=== PATIENT | female | born 1945 | race Caucasian/White ===

== ENCOUNTER 2019-09-27 13:14 | Outpatient (CLI) | payer MEDICARE, OTHER, SELFPAY ==
--- NOTE | ~2019-09-27 | MM_ITS ---
EXAMINATION: MM screening adams BI w kacy HISTORY: Screening mammogram TECHNIQUE: Craniocaudal and mediolateral oblique 3-D tomosynthesis images were obtained and synthetic 2-D images were generated. CAD analysis was submitted and interpreted. COMPARISON: 08/17/2018, 05/13/2017, 02/23/2014 bilateral digital screening mammogram examinations BREAST PARENCHYMAL COMPOSITION: There are scattered areas of fibroglandular density. FINDINGS: There is no evidence of suspicious mass, calcification, or architectural distortion to sugg est malignancy in either breast. There has been no suspicious interval change. IMPRESSION: 1. No mammographic evidence of malignancy. 2. Recommend routine screening mammography in one year. BI-RADS Category 1: Negative Reviewed, dictated and finalized at location A.
--- NOTE | ~2019-09-27 | DEXA_ITS ---
Bone Density Report Name: Carole Johnston Age: 74 Sex: Female Ethnicity: White Date of : 1945 Indication: postmenopausal; height loss; hysterectomy; Referring Provider: Selvin, Aby Study: Bone densitometry was performed. Exam Date: September 27, 2019 Accession number: [id number] Bone Density: Region BMD T-score Z-score Classification AP Spine (L1-L4) 0.923 -1.1 1.1 Osteopenia Femoral Neck (Left) 0.572 -2.5 -0.5 Osteoporosis Total Hip (Left) 0.650 -2.4 -0.7 Osteopenia Total Hip Bilateral Avg 0.665 -2.3 -0.6 Osteopenia Femoral Neck (Right) 0.562 -2.6 -0.6 Osteoporosis Total Hip (Right) 0.679 -2.2 -0.5 Osteopenia World Health Organization criteria for BMD impression classify patients as: Normal (T-score at or above -1.0), Osteopenia (T-score between -1.0 and -2.5), or Osteoporosis (T-score at or below -2.5). 10-year Fracture Risk: FRAX not reported because: Some T-score for Spine Total or Hip Total or Femoral Neck at or below -2.5 Clinical Information Provided by Patient: Has the following medical conditions: Hysterectomy Patient maximum height was 64.5 Menopause Age: 38 Does not regularly consume dairy products Drinks caffeinated beverages Onset of menses at age 14 Number of children 1 Impression: The patient has osteoporosis, based on the Right Femoral Neck T-score. Discussion: INCREASED RISK OF FRACTURE. BONE DENSITY IS UNDESIRABLY LOW AT ONE OR MORE SKELETAL SITES, CONSISTENT WITH POSTMENOPAUSAL OSTEOPOROSIS. This patient's lowest T-score meets the World Health Organization's (WHO) criteria for osteoporosis at one or more sites (T-score -2.5 or below). In untreated patients, the risk of osteoporotic fracture increases approximately two-fold for each 1.0 SD decrease in T-score. Low bone density is not the only risk factor for fracture; also consider factors such as patient's age, frailty or poor health, risk of falling, risk of injury, previous osteoporotic fracture, family history of osteoporosis, cigarette smoking, low body weight, etc. Not everyone with low bone mineral density has osteoporosis; osteomalacia and other metabolic bone disorders should also be considered. Patients who have osteoporosis should be evaluated for specific diseases and conditions (secondary causes) that may cause or contribute to bone loss. The [place] [employer]ocrinologists (AACE) and National Osteoporosis Foundation (NOF) recommend pharmacologic intervention for all postmenopausal women whose T-score is in this range. The patient should follow a healthful lifestyle (good nutrition with adequate calcium and vitamin D, and appropriate weight-bearing exercise). Follow-Up: Consider a repeat BMD and Vertebral Fracture Assessment (VFA) exam in 2 years or sooner if medically necessary, to reassess this patient's st
== END 2019-09-27 13:15 | disposition home or self-care (01) ==
LOC: ANHIMG 13:24
PROVIDERS: PCP Internal Medicine; Visit Provider Internal Medicine
DX: Z12.31 Encounter for screening mammogram for malignant neoplasm of breast (principal); Z78.0 Asymptomatic menopausal state; M85.88 Other specified disorders of bone density and structure, other site; M81.0 Age-related osteoporosis without current pathological fracture; M85.852 Other specified disorders of bone density and structure, left thigh; M85.851 Other specified disorders of bone density and structure, right thigh
CPT/HCPCS: 77063; 77067; 77080

== ENCOUNTER 2020-09-27 14:24 | Outpatient (CLI) | payer MEDICARE, OTHER, SELFPAY ==
--- NOTE | ~2020-09-27 | MM_ITS ---
EXAMINATION: MM screening adams BI w kacy HISTORY: Screening mammogram TECHNIQUE: Craniocaudal and mediolateral oblique 3-D tomosynthesis images were obtained and synthetic 2-D images were generated. CAD analysis was submitted and interpreted. COMPARISON: 09/23/2019, 08/17/2018, 05/13/2017 bilateral digital screening mammogram examinations BREAST PARENCHYMAL COMPOSITION: There are scattered areas of fibroglandular density. FINDINGS: There is no evidence of suspicious mass, calcification, or architectural distortion to sugg est malignancy in either breast. There has been no suspicious interval change. IMPRESSION: 1. No mammographic evidence of malignancy. 2. Recommend routine screening mammography in one year. BI-RADS Category 1: Negative Reviewed, dictated and finalized at location A.
== END 2020-09-27 14:25 | disposition home or self-care (01) ==
LOC: ANHIMG 14:28
PROVIDERS: PCP Internal Medicine; Visit Provider Internal Medicine
DX: Z12.31 Encounter for screening mammogram for malignant neoplasm of breast (principal)
CPT/HCPCS: 77063; 77067

== ENCOUNTER 2021-12-09 16:00 | Outpatient (CLI) | payer MEDICARE, OTHER, SELFPAY ==
--- NOTE | ~2021-12-09 | DEXA_ITS ---
Bone Density Report Name: TRISH PFEIFFER Age: 76 Sex: Female Ethnicity: White Date of : 1945 Indication: postmenopausal; screening for osteoporosis; height loss; Referring Provider: SHONXENIA Study: Bone densitometry was performed. Exam Date: December 09, 2021 Accession number: [id number] Bone Density: Region BMD T-score Z-score Classification AP Spine(L1-L4) 0.930 -1.1 1.3 Osteopenia Femoral Neck (Left) 0.513 -3.0 -1.0 Osteoporosis Total Hip (Left) 0.628 -2.6 -0.8 Osteoporosis Femoral Neck (Right) 0.548 -2.7 -0.6 Osteoporosis Total Hip (Right) 0.635 -2.5 -0.7 Osteoporosis Total Hip Mean 0.631 -2.6 -0.8 Osteoporosis World Health Organization criteria for BMD impression classify patients as: Normal (T-score at or above -1.0), Osteopenia (T-score between -1.0 and -2.5), or Osteoporosis (T-score at or below -2.5). 10-year Fracture Risk: FRAX not reported because: Some T-score for Spine Total or Hip Total or Femoral Neck at or below -2.5 Treated for osteoporosis Clinical Information Provided by Patient: Is being treated for osteoporosis Has used the following medications: Vitamin D, Calcium Patient maximum height was 64 Menopause Age: 38 No regular weight bearing exercise Does not regularly consume dairy products Drinks caffeinated beverages Onset of menses at age 14 Number of children 1 Impression: The patient has osteoporosis, based on the Left Femoral Neck T-score. Discussion: It is important to ask patients whether they are taking their medications and to encourage continued and appropriate compliance with their osteoporosis therapies to reduce fracture risk. It is also important to review their risk factors and encourage appropriate calcium and vitamin D intakes, exercise, fall prevention and other lifestyle measures. Follow-Up: Consider a repeat BMD and Vertebral Fracture Assessment (VFA) exam in 2 years or sooner if medically necessary, to reassess this patient's status. Reported by: ASHLEE on 12/09/2021 4:28:00 PM. Reviewed, dictated and finalized at location [facility]ep [facility]
--- NOTE | ~2021-12-09 | MM_ITS ---
EXAMINATION: MM screening adams BI w kacy HISTORY: Screening mammogram TECHNIQUE: Craniocaudal and mediolateral oblique 3-D tomosynthesis images were obtained and synthetic 2-D images were generated. CAD analysis was submitted and interpreted. COMPARISON: 09/27/2020, 09/23/2019, 08/17/2018 bilateral screening mammogram examinations BREAST PARENCHYMAL COMPOSITION: There are scattered areas of fibroglandular density. FINDINGS: There is no evidence of suspicious mass, calcification, or architectural distortion to sugg est malignancy in either breast. There has been no suspicious interval change. IMPRESSION: 1. No mammographic evidence of malignancy. 2. Recommend routine screening mammography in one year. BI-RADS Category 1: Negative Reviewed, dictated and finalized at location A.
== END 2021-12-09 16:01 | disposition home or self-care (01) ==
PROVIDERS: PCP Internal Medicine; Visit Provider Internal Medicine
DX: Z12.31 Encounter for screening mammogram for malignant neoplasm of breast (principal); Z78.0 Asymptomatic menopausal state; M85.88 Other specified disorders of bone density and structure, other site; M81.0 Age-related osteoporosis without current pathological fracture
CPT/HCPCS: 77063; 77067; 77080

== ENCOUNTER 2022-04-06 13:32 | Observation (INO) | payer MEDICARE, OTHER, SELFPAY ==
[2022-04-06] VITALS (10 sets, daily range): BP systolic 141–205; BP diastolic 46–101; PULSE 72–83; RESP 15–25; TEMP 36.8; O2SAT 62–100; BMI 21.9
--- NOTE | ~2022-04-06 | XR_ITS ---
EXAMINATION: XR chest 2V DATE: 04/06/2022 14:18 INDICATION: Cough and fever. TECHNIQUE: Frontal and lateral views of the chest were obtained. COMPARISON: None. FINDINGS: There are airspace opacities in the lower lung zones. There are mild airspace opacities in perihilar right upper lobe. No pleural effusion or pneumothorax. The heart size is normal. Surgical c lips in the right upper quadrant are likely from cholecystectomy. IMPRESSION: 1. Airspace opacities in the lower lung zones and perihilar right upper lobe, consistent with pneumon ia. Reviewed, dictated and finalized at location A. 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 Airspace opacities in the lower lung zones and perihilar right upper lobe, c onsistent with pneumonia.
--- NOTE | 2022-04-06 13:59 | ECG_ITS ---
Measurements Intervals [place] Rate: 70 P: 68 AR: 154 QRS: -5 QRSD: 89 T: 58 QT: 404 QTc: 437 Interpretive Statements SINUS RHYTHM ANTEROSEPTAL INFARCT, AGE INDETERMINATE BASELINE ARTIFACT- II, III, AVF ABNORMAL ECG NO PREVIOUS ECG AVAILABLE FOR COMPARISON Electronically Signed On 04-06-2022 15:40:07 [employer]ER by Markel Robertson D.O.
[2022-04-06 14:41] LABS: Influenza A QL RT-PCR Positive (Negative); Influenza B QL RT-PCR Negative (Negative); SARS-CoV-2 RNA PCR Negative
--- NOTE | 2022-04-06 15:23 | ED.GENADULT ---
HPI - General Adult General Chief complaint: Upper Respiratory Infection Stated complaint: cough Time Seen by Provider: 04/06/22 15:10 Source: patient, family and RN notes reviewed Mode of arrival: ambulatory Limitations: no limitations History of Present Illness HPI narrative: This is a 77 year old female with history of rheumatoid arthritis and sjogren's who presents for evaluation of weakness and cough. Patient has been having cough for 2 weeks. She reports intermittently coughing up brown sputum. She has also had daily fever and chills. She reports nausea and dry heaves and progressive weakness. Her states she has been so weak that she almost fell today. He was sick prior to her but he has improved. She denies chest pain or shortness of breath. Related Data Home Medications Medication Instructions Recorded Confirmed aspirin 81 mg tablet,delayed 81 mg PO DAILY 07/28/21 12/22/21 release cevimeline 30 mg capsule 1 cap PO TID 07/28/21 chlorhexidine gluconate 0.12 % 15 ml buccal DAILY 07/28/21 12/22/21 mouthwash cholecalciferol (vitamin D3) 50 50 mcg PO DAILY 07/28/21 12/22/21 mcg (2,000 unit) capsule cholestyramine (with sugar) 4 gram PO 07/28/21 12/22/21 oral powder clopidogrel 75 mg tablet 75 mg PO DAILY 07/28/21 12/22/21 dexlansoprazole 60 mg 60 mg PO DAILY 07/28/21 12/22/21 capsule,biphase delayed release docusate sodium 100 mg capsule 100 mg PO DAILY 07/28/21 12/22/21 (DOK) famotidine 20 mg tablet 20 mg PO DAILY 07/28/21 12/22/21 ferrous gluconate 240 mg (27 mg 240 mg PO DAILY 07/28/21 12/22/21 iron) tablet (Ferate) gabapentin 400 mg capsule 400 mg PO DAILY 07/28/21 12/22/21 levothyroxine 88 mcg tablet 88 mcg PO DAILY 07/28/21 12/22/21 (Synthroid) metoprolol succinate 50 mg 50 mg PO DAILY 07/28/21 12/22/21 tablet,extended release 24 hr zolpidem 10 mg tablet PO 07/28/21 12/22/21 Allergies Allergy/AdvReac Type Severity Reaction Status Date / Time No Known Allergies Allergy Verified 04/06/22 13:34 Review of Systems Constitutional: Constitutional: Reports chills, Reports fatigue, Reports fever(s) and Reports weakness ENT: Reports nasal congestion Cardiovascular: Cardiovascular: Denies syncope, Denies rapid heart rate, Denies irregular heart rhythm, Denies leg edema and Denies dyspnea Respiratory: Respiratory: Reports chest congestion, Reports cough, Denies hemoptysis, Denies excessive phlegm production and Denies dyspnea Gastrointestinal: Gastrointestinal: Denies abdominal pain, Denies hematochezia, Denies diarrhea, Reports nausea and Denies vomiting Genitourinary: Genitourinary: Denies hematuria and Denies dysuria Musculoskeletal: Musculoskeletal: Denies joint swelling, Denies loss of height and Denies muscle weakness Neurologic: Denies syncope, Denies focal weakness and Denies weakness PMFSH Past Medical History Medical History ALEK positive Arthritis Degenerative joint disease of cervical and lumbar spine Hypertension Osteoporosis Rheumatoid arthritis with rheumatoid factor of multiple sites without organ or systems involvement Sjogren's syndrome without extraglandular involvement Thyroid disorder Transient ischemic attack Family History Family History Father Hypertension Cancer Mother Hypertension Cancer Grandparent Heart disease Grandparent Hypertension Social History Social History Smoking status: Never smoker Alcohol intake: never Exam Const: General: no acute distress, alert and ill appearing Orientation/consciousness: patient oriented x3 Limitations: no limitations HENMT: Head: normal to inspection Eyes: EOM: EOMs intact bilaterally Chest: Chest palpation & inspection: normal inspection of the chest Resp: Effort & Inspection: normal respiratory effort, not tachypnei
[2022-04-06] MEDS: SODIUM CHLORIDE 0.9% IV 1,000 ML 999 ML IV CONT (15:47)
[2022-04-06 15:52] LABS: Basophils Absolute Auto 0.1 K/mm3 (0.0-0.1); Basophils Percent Auto 0.7 % (0.2-1.2); Eosinophils Percent Auto 0.2 % (0-4.4); Hematocrit 40.9 % (37.0-47.0); Hemoglobin 13.8 g/dL (12.0-15.0); Immature Granulocyte Absolute 0.39 K/mm3 (0.00-0.031); Immature Granulocyte Percent A 2.2 % (0-0.5); Lymphocytes Absolute Auto 0.78 K/mm3 (0.9-3.2); Lymphocytes Percent Auto 4.5 % (18.3-44.2); Mean Corpuscular HGB Conc 33.7 g/dl (32-36); Mean Corpuscular Hemoglobin 31.2 pg (26-34); Mean Corpuscular Volume 92.5 fl (80-100); Monocytes Percent Auto 5.5 % (2.6-8.5); Neutrophils Absolute Auto 15.2 K/mm3 (1.3-6.7); Neutrophils Percent Auto 86.9 % (45.5-73.1); Platelet Count Result 491 k/mm3 (150-375); Red Blood Count 4.42 M/mm3 (4.2-5.4); Red Cell Distribution Width 12.6 % (11.5-14.5); White Blood Count 17.5 K/mm3 (4.5-10.0)
[2022-04-06 15:59] LABS: Lactic Acid Reflex 1.4 mmol/L (0.7-2.0)
[2022-04-06 16:01] LABS: Alanine Aminotransferase 45 U/L (6-35); Albumin Level 3.7 g/dL (3.5-5.1); Alkaline Phosphatase 180 U/L (38-126); Anion Gap 8 mmol/L (8-16); Aspartate Amino Transferase 61 U/L (14-36); Blood Urea Nitrogen 14 mg/dL (7-17); Calcium 8.6 mg/dL (8.4-10.2); Carbon Dioxide 26 mmol/L (22-30); Chloride 95 mmol/L (98-107); Estimated CRCL calculation 41 ml/min; Estimated Glomerular Filt Rate > 60; Glucose 126 mg/dL (65-110); Sodium 129 mmol/L (137-145)
[2022-04-06 16:17] LABS: CRP 22.6 mg/dL (<1.0)
--- NOTE | 2022-04-06 16:59 | PC.NURSE ---
regular dinner diet tray ordered
--- NOTE | 2022-04-06 18:00 | PM.IMHP ---
H&P: HPI History of Present Illness Date/Time: 04/06/22 18:00 Chief Complaint: Fever and cough. Narrative: This is a 77-year-old female with history of TIA, rheumatoid arthritis, Sjogren's syndrome, and hypothyroidism who presented to the emergency department for evaluation of cough and fever. She has not felt well for about a week with cough occasionally productive of brownish colored phlegm, body aches, and nausea. She was prescribed a Z-Dennis on 03/31 and completed that without benefit. At home she has been taking Mucinex and Tylenol for her symptoms but unfortunately she continues to feel worse. She is now having fevers up to 101? Fahrenheit and reports poor oral intake and ongoing dry heaves but no vomiting. She denies significant headache, sore throat, chest pain, significant shortness of breath, vomiting, diarrhea, and dysuria. Vital signs were stable on arrival to ED. Pertinent labs include white blood cell count of 17.5, sodium 129, CRP 22.6. She tested positive for influenza A and she is being admitted in this setting for further care. Review of Systems Review of Systems: Twelve systems were reviewed and are negative except for as per HPI. [facility] Past Medical History Medical History (Updated 04/06/22 @ 23:56 by Yvonne Barone PA-C) ALEK positive Arthritis Degenerative joint disease of cervical and lumbar spine Hypertension Hypothyroidism Osteoporosis Rheumatoid arthritis with rheumatoid factor of multiple sites without organ or systems involvement Sjogren's syndrome without extraglandular involvement Transient ischemic attack Surgical History Surgical History (Updated 04/06/22 @ 23:56 by Yvonne Barone PA-C) History of cholecystectomy History of Hermel[place] fundoplication Family History Family History Father Hypertension Cancer Mother Hypertension Cancer Grandparent Heart disease Grandparent Hypertension Social History Social History (Updated 04/06/22 @ 23:56 by Yvonne Barone PA-C) Social History: Surrogate medical decision maker: Carlos Johnston, spouse. Code status: Full code. Smoking status: Never smoker Alcohol intake: never Substance use: never Lack of Transportation: No Lack of Food: Never True Current Housing: I Have Housing Concerned About Future Housing: No Difficulty Paying Gas/Electric Bills: No Difficulty Paying for Meds: No Currently Unemployed: No Education: High School Diploma/GED Difficulty w/ Childcare or Family Care: No Additional living arrangements comments: Lives in [place] with spouse. Spiritual care concerns: No Meds Home Medications and Allergies Home Medications Medication Instructions Recorded Confirmed Type aspirin 81 mg tablet,delayed 81 mg PO DAILY 07/28/21 04/06/22 History release cevimeline 30 mg capsule 1 cap PO TID 07/28/21 04/06/22 History cholecalciferol (vitamin D3) 50 50 mcg PO DAILY 07/28/21 04/06/22 History mcg (2,000 unit) capsule cholestyramine (with sugar) 4 gram 1 ea PO AC 07/28/21 04/06/22 History oral powder (Questran) clopidogrel 75 mg tablet 75 mg PO DAILY 07/28/21 04/06/22 History dexlansoprazole 60 mg 60 mg PO DAILY 07/28/21 04/06/22 History capsule,biphase delayed release docusate sodium 100 mg capsule 100 mg PO DAILY 07/28/21 04/06/22 History (DOK) famotidine 20 mg tablet 20 mg PO DAILY 07/28/21 04/06/22 History ferrous gluconate 240 mg (27 mg 240 mg PO DAILY 07/28/21 04/06/22 History iron) tablet (Ferate) levothyroxine 88 mcg tablet 88 mcg PO DAILY 07/28/21 04/06/22 History (Synthroid) metoprolol succinate 50 mg 50 mg PO DAILY 07/28/21 04/06/22 History tablet,extended release 24 hr zolpidem 10 mg tablet (Ambien) 10 mg PO HS insomnia 07/28/21 04/06/22 History Allergies Allergy/AdvReac Type Severity Reaction Status Date / Time No Known Allergies Allergy Verified 04/06/22 13:34 Vital Signs Vi
--- NOTE | 2022-04-06 18:25 | ADMGEN ---
This patient, Carole Johnston, was admitted to [facility] Surg Room 309-01 at 1750. Patient/family oriented to hospital policies and general routines including ID bracelet, bed and alarms, visiting hours, pain management, procedures, bathroom and other care routines, personal items, smoking policy, room service/diet, and visiting hours. Information on how to activate the Rapid Response Team has been discussed. Patient/Family are encouraged to report perceived risks to care and to ask questions if they do not understand what they are told or what they should do.
[2022-04-06] MEDS: SODIUM CHLORIDE 0.9% IV 1,000 ML 125 ML IV CONT (18:54)
[2022-04-06] MEDS: ALBUTEROL SULFATE (*SP) AEROSOL 1 PUFF 2 PUFF INHALATION (20:40)
[2022-04-07] VITALS (10 sets, daily range): BP systolic 123–146; BP diastolic 51–54; PULSE 65–114; RESP 16–20; TEMP 36.6–37.7; O2SAT 93–100; BMI 20.5
[2022-04-07 00:43] LABS: Anion Gap 3 mmol/L (8-16); Blood Urea Nitrogen 10 mg/dL (7-17); Calcium 7.6 mg/dL (8.4-10.2); Carbon Dioxide 24 mmol/L (22-30); Chloride 100 mmol/L (98-107); Estimated CRCL calculation 46 ml/min; Estimated Glomerular Filt Rate > 60; Glucose 101 mg/dL (65-110); Potassium 3.4 mmol/L (3.4-5.0); Sodium 127 mmol/L (137-145)
[2022-04-07] MEDS: SODIUM CHLORIDE 0.9% IV 1,000 ML 125 ML IV CONT ×2 (01:11→12:25)
[2022-04-07] MEDS: ZOLPIDEM TARTRATE (*CRX) 5 MG TABLET 10 MG PO ×2 (01:11→23:27)
[2022-04-07] MEDS: LEVOTHYROXINE SODIUM 88 MCG TABLET PO (06:14)
[2022-04-07 06:44] LABS: Basophils Absolute Auto 0.1 K/mm3 (0.0-0.1); Basophils Percent Auto 0.6 % (0.2-1.2); Eosinophils Absolute Auto 0.1 K/mm3 (0-0.3); Eosinophils Percent Auto 0.5 % (0-4.4); Hematocrit 31.4 % (37.0-47.0); Hemoglobin 10.4 g/dL (12.0-15.0); Immature Granulocyte Absolute 0.23 K/mm3 (0.00-0.031); Immature Granulocyte Percent A 1.6 % (0-0.5); Lymphocytes Percent Auto 6.1 % (18.3-44.2); Mean Corpuscular HGB Conc 33.1 g/dl (32-36); Mean Corpuscular Hemoglobin 31.5 pg (26-34); Mean Corpuscular Volume 95.2 fl (80-100); Mean Platelet Volume 8.8 fl (7.4-10.4); Monocytes Percent Auto 6.6 % (2.6-8.5); Neutrophils Absolute Auto 12.5 K/mm3 (1.3-6.7); Neutrophils Percent Auto 84.6 % (45.5-73.1); Platelet Count Result 461 k/mm3 (150-375); Red Cell Distribution Width 12.4 % (11.5-14.5); White Blood Count 14.8 K/mm3 (4.5-10.0)
[2022-04-07 06:48] LABS: Potassium 3.4 mmol/L (3.4-5.0)
[2022-04-07 07:36] LABS: Alanine Aminotransferase 29 U/L (6-35); Albumin Level 2.6 g/dL (3.5-5.1); Alkaline Phosphatase 123 U/L (38-126); Anion Gap 6 mmol/L (8-16); Aspartate Amino Transferase 33 U/L (14-36); Bilirubin,Total 0.7 mg/dL (0.2-1.3); Blood Urea Nitrogen 8 mg/dL (7-17); Calcium 7.3 mg/dL (8.4-10.2); Carbon Dioxide 21 mmol/L (22-30); Chloride 104 mmol/L (98-107); Estimated CRCL calculation 45 ml/min; Estimated Glomerular Filt Rate > 60; Glucose 99 mg/dL (65-110); Magnesium 1.7 mg/dL (1.6-2.3); Sodium 131 mmol/L (137-145)
[2022-04-07] MEDS: ALBUTEROL SULFATE NEB 2.5 MG/3 ML INH INHALATION ×3 (07:53→19:30)
[2022-04-07] MEDS: IPRATROPIUM BR 0.02% INH SOLN 0.5 MG/2.5 ML VIAL INHALATION ×3 (07:53→19:30)
[2022-04-07] MEDS: METOPROLOL SUCCINATE EXT REL 50 MG TABCR PO (08:50)
[2022-04-07] MEDS: DOCUSATE SODIUM 100 MG CAPSULE PO (08:50)
[2022-04-07] MEDS: PANTOPRAZOLE 40 MG TABLET PO (08:50)
[2022-04-07] MEDS: guaiFENesin 12 HR 600 MG TABCR PO ×2 (08:50→20:24)
[2022-04-07] MEDS: FAMOTIDINE 20 MG TABLET PO (08:50)
[2022-04-07] MEDS: CLOPIDOGREL BISULFATE 75 MG TABLET PO (08:51)
[2022-04-07] MEDS: OSELTAMIVIR PHOSPHATE 75 MG CAPSULE PO ×2 (08:51→20:24)
[2022-04-07] MEDS: ASPIRIN 81 MG ENTERIC TABLET PO (08:56)
[2022-04-07] MEDS: CHOLECALCIFEROL 1,000 UNITS TABLET 2000 UNITS PO (08:56)
--- NOTE | 2022-04-07 11:27 | PM.IMPN ---
Progress Note: A&P Assessment and Plan (1) Influenza A: Code(s): J10.1 - Influenza due to other identified influenza virus with other respiratory manifestations Status: Acute Assessment and Plan: Tamiflu started April 06, 2022, to complete a 5 day course (2) Pneumonia: Code(s): J18.9 - Pneumonia, unspecified organism Status: Acute Assessment and Plan: Started on Rocephin and azithromycin as well as vancomycin, MRSA swab pending Deescalate as appropriate (3) Hyponatremia: Code(s): E87.1 - Hypo-osmolality and hyponatremia Status: Acute Assessment and Plan: Improving on fluids TSH within normal limits (4) Hypothyroidism: Code(s): E03.9 - Hypothyroidism, unspecified Status: Acute Assessment and Plan: Continue levothyroxine, TSH stable (5) Elevated LFTs: Code(s): R79.89 - Other specified abnormal findings of blood chemistry Status: Acute Assessment and Plan: Resolved Plan DVT prophylaxis with Lovenox GI prophylaxis with PPI Code status full code Subjective Date/time seen: 04/07/22 11:27 Interval history: No overnight events noted. No chest pain or shortness of breath. No nausea, vomiting or diarrhea. No fevers or chills. She does admit to having bouts of constipation followed by bouts of looser stool. She has had 3 episodes of loose stool today, but does not seem to think this is out of the the usual for her. She states she still feels a little weak, but a lot better than yesterday. Review of Systems Review of Systems: 12 point review of systems was assessed and was negative except as noted in the HPI Exam Narrative: General: No acute distress, alert and oriented per baseline HEENT: Atraumatic, normocephalic, mucous membranes moist CV: Regular rate and rhythm, S1, S2 Lungs: Coarse breath sounds throughout, good air entry Abdomen: Soft, nontender, nondistended Extremities: Normal to inspection Skin: No rashes noted, no lesions or wounds seen Psych: Euthymic, normal affect Objective Data Vital Signs Vital Signs: Vital Signs - 24 hr 04/06/22 15:12 04/06/22 15:16 04/06/22 15:42 Temperature Pulse Rate 76 74 72 Respiratory Rate 25 H 15 21 H Blood Pressure 166/75 H 205/69 H 148/82 H Pulse Oximetry 99 99 100 Oxygen Delivery 04/06/22 15:46 04/06/22 16:01 04/06/22 16:16 Temperature Pulse Rate 73 76 79 Respiratory Rate 19 24 H 17 Blood Pressure 160/68 H 154/68 H 156/101 H Pulse Oximetry 99 99 62 L Oxygen Delivery 04/06/22 16:31 04/06/22 17:28 04/06/22 18:33 Temperature 98.2 F Pulse Rate 77 78 Respiratory Rate 19 18 Blood Pressure 142/76 H 141/55 H Pulse Oximetry 95 96 Oxygen Delivery Room Air 04/06/22 20:39 04/06/22 21:56 04/07/22 06:00 Temperature 98.2 F 99.9 F H Pulse Rate 83 114 H Respiratory Rate 16 20 Blood Pressure 158/46 H 146/54 H Pulse Oximetry 94 98 97 Oxygen Delivery Room Air 04/07/22 07:50 04/07/22 07:50 04/07/22 08:03 Temperature Pulse Rate 99 97 Respiratory Rate 18 18 Blood Pressure Pulse Oximetry 99 Oxygen Delivery Room Air 04/07/22 08:50 04/07/22 08:00 Temperature Pulse Rate 97 Respiratory Rate Blood Pressure Pulse Oximetry Oxygen Delivery Room Air Intake/Output Intake/Output: Intake & Output 04/04/22 04/05/22 04/06/22 04/07/22 23:59 23:59 23:59 23:59 Intake Total 1300 1500 Output Total 1100 Balance 1300 400 Meds/Results Medications: Active Medications Generic Name Dose Route Start Last Admin Trade Name Freq PRN Reason Stop Dose Admin Acetaminophen 650 mg 04/07/22 00:00 Acetaminophen 325 Mg Tablet PO Q6H PRN Mild Pain (1-3) or Fever Albuterol 2 puff 04/06/22 16:47 04/06/22 20:40 Albuterol Sulfate (*Sp) Aerosol 1 Puff INHALATION 2 puff QIDRT PRN Administration Shortness Of Breath Albuterol 2.5 mg 04/07/22 02:00 04/07
[2022-04-07] MEDS: ENOXAPARIN 40 MG/0.4 ML SYRINGE SUB-Q (12:27)
[2022-04-07 12:46] LABS: Creatinine Urine 60.4 mg/dL; Sodium Urine Random 16 meq/L
[2022-04-07] MEDS: ACETAMINOPHEN 325 MG TABLET 650 MG PO (19:26)
[2022-04-08] VITALS (12 sets, daily range): BP systolic 138–143; BP diastolic 63–68; PULSE 61–99; RESP 16–22; TEMP 37.2–37.6; O2SAT 93–98
[2022-04-08] MEDS: ALBUTEROL SULFATE NEB 2.5 MG/3 ML INH INHALATION ×4 (01:40→20:54)
[2022-04-08] MEDS: IPRATROPIUM BR 0.02% INH SOLN 0.5 MG/2.5 ML VIAL INHALATION ×4 (01:41→20:54)
[2022-04-08] MEDS: SODIUM CHLORIDE 0.9% IV 1,000 ML 125 ML IV CONT ×2 (03:54→11:37)
[2022-04-08] MEDS: LEVOTHYROXINE SODIUM 88 MCG TABLET PO (06:00)
[2022-04-08] MEDS: ENOXAPARIN 40 MG/0.4 ML SYRINGE SUB-Q (08:21)
[2022-04-08] MEDS: CLOPIDOGREL BISULFATE 75 MG TABLET PO (08:21)
[2022-04-08] MEDS: ASPIRIN 81 MG ENTERIC TABLET PO (08:21)
[2022-04-08] MEDS: FAMOTIDINE 20 MG TABLET PO (08:21)
[2022-04-08] MEDS: CHOLECALCIFEROL 1,000 UNITS TABLET 2000 UNITS PO (08:21)
[2022-04-08] MEDS: PANTOPRAZOLE 40 MG TABLET PO (08:21)
[2022-04-08] MEDS: DOCUSATE SODIUM 100 MG CAPSULE PO (08:22)
[2022-04-08] MEDS: OSELTAMIVIR PHOSPHATE 75 MG CAPSULE PO ×2 (08:22→22:49)
[2022-04-08] MEDS: guaiFENesin 12 HR 600 MG TABCR PO ×2 (08:22→22:49)
[2022-04-08] MEDS: METOPROLOL SUCCINATE EXT REL 50 MG TABCR PO (08:22)
--- NOTE | 2022-04-08 17:57 | PM.IMPN ---
Progress Note: A&P Assessment and Plan (1) Influenza A: Code(s): J10.1 - Influenza due to other identified influenza virus with other respiratory manifestations Status: Acute Assessment and Plan: Tamiflu started April 06, 2022, to complete a 5 day course. Continue supportive care (2) Pneumonia: Code(s): J18.9 - Pneumonia, unspecified organism Status: Acute Assessment and Plan: chest x-ray on admission shows airspace opacities in the lower lung zones and perihilar right upper lobe consistent with pneumonia. Started on Rocephin and azithromycin as well as vancomycin, MRSA swab pending. Urine antigens also pending. Deescalate as appropriate (3) Hyponatremia: Code(s): E87.1 - Hypo-osmolality and hyponatremia Status: Acute Assessment and Plan: Improving on fluids. Na not checked today. TSH within normal limits. She is eating well. Will stop IV fluids and repeat labs in the moring (4) Hypothyroidism: Code(s): E03.9 - Hypothyroidism, unspecified Status: Acute Assessment and Plan: Continue levothyroxine, TSH stable (5) Elevated LFTs: Code(s): R79.89 - Other specified abnormal findings of blood chemistry Status: Acute Assessment and Plan: Resolved Plan DVT prophylaxis with Lovenox GI prophylaxis with PPI Code status full code Subjective Date/time seen: 04/08/22 17:57 Interval history: 77yo female here for influenza A and PNA. Assuming care. Chart reviewed. She has been up walking in the room. Her cough is much improved. Eating well. No chest pain. Exam Narrative: General: No acute distress, alert and oriented per baseline HEENT: Atraumatic, normocephalic, mucous membranes moist CV: Regular rate and rhythm, S1, S2 Lungs: Coarse breath sounds throughout, good air entry Abdomen: Soft, nontender, nondistended Extremities: Normal to inspection Skin: No rashes noted, no lesions or wounds seen Psych: Euthymic, normal affect Objective Data Vital Signs Vital Signs: Vital Signs - 24 hr 04/07/22 19:32 04/08/22 01:41 04/07/22 19:42 Temperature Pulse Rate 65 61 68 Respiratory Rate 18 18 18 Blood Pressure Pulse Oximetry Oxygen Delivery 04/07/22 20:00 04/08/22 01:51 04/07/22 19:31 Temperature Pulse Rate 65 Respiratory Rate Blood Pressure Pulse Oximetry 100 93 Oxygen Delivery Room Air Room Air 04/08/22 05:27 04/08/22 08:22 04/08/22 10:55 Temperature 99.6 F Pulse Rate 94 92 71 Respiratory Rate 16 18 Blood Pressure 138/63 Pulse Oximetry 98 Oxygen Delivery 04/08/22 11:10 04/08/22 11:10 04/08/22 14:00 Temperature 99.5 F Pulse Rate 69 82 Respiratory Rate 18 16 Blood Pressure 143/65 H Pulse Oximetry 94 93 Oxygen Delivery Room Air 04/08/22 14:32 04/08/22 15:13 04/08/22 15:23 Temperature Pulse Rate 70 71 Respiratory Rate 18 18 Blood Pressure Pulse Oximetry Oxygen Delivery Room Air 04/08/22 14:44 Temperature Pulse Rate Respiratory Rate Blood Pressure Pulse Oximetry Oxygen Delivery Room Air Intake/Output Intake/Output: Intake & Output 04/05/22 04/06/22 04/07/22 04/08/22 23:59 23:59 23:59 23:59 Intake Total 1300 5310 1740 Output Total 1100 Balance 1300 4210 1740 Meds/Results Medications: Active Medications Generic Name Dose Route Start Last Admin Trade Name Freq PRN Reason Stop Dose Admin Acetaminophen 650 mg 04/07/22 00:00 04/07/22 19:26 Acetaminophen 325 Mg Tablet PO 650 mg Q6H PRN Administration Mild Pain (1-3) or Fever Albuterol 2 puff 04/06/22 16:47 04/06/22 20:40 Albuterol Sulfate (*Sp) Aerosol 1 Puff INHALATION 2 puff QIDRT PRN Administration Shortness Of Breath Albuterol 2.5 mg 04/07/22 02:00 04/08/22 15:13 Albuterol Sulfate Neb 2.5 Mg/3 Ml Inh INHALATION 2.5 mg Q6HRT CLAUDE Administration Aspirin 81 mg
[2022-04-08] MEDS: ACETAMINOPHEN 325 MG TABLET 650 MG PO (22:49)
[2022-04-08] MEDS: ZOLPIDEM TARTRATE (*CRX) 5 MG TABLET 10 MG PO (22:49)
[2022-04-09] VITALS (13 sets, daily range): BP systolic 153–177; BP diastolic 54–62; PULSE 68–95; RESP 14–18; TEMP 36.7–37.6; O2SAT 94–98
[2022-04-09] MEDS: IPRATROPIUM BR 0.02% INH SOLN 0.5 MG/2.5 ML VIAL INHALATION ×4 (01:01→21:11)
[2022-04-09] MEDS: ALBUTEROL SULFATE NEB 2.5 MG/3 ML INH INHALATION ×4 (01:01→21:11)
[2022-04-09 06:25] LABS: Basophils Percent Auto 0.1 % (0.2-1.2); Eosinophils Absolute Auto 0.1 K/mm3 (0-0.3); Eosinophils Percent Auto 0.9 % (0-4.4); Hematocrit 24.7 % (37.0-47.0); Hemoglobin 8.3 g/dL (12.0-15.0); Immature Granulocyte Absolute 0.07 K/mm3 (0.00-0.031); Immature Granulocyte Percent A 0.8 % (0-0.5); Lymphocytes Absolute Auto 0.75 K/mm3 (0.9-3.2); Lymphocytes Percent Auto 8.9 % (18.3-44.2); Mean Corpuscular HGB Conc 33.6 g/dl (32-36); Mean Corpuscular Hemoglobin 30.7 pg (26-34); Mean Corpuscular Volume 91.5 fl (80-100); Mean Platelet Volume 8.7 fl (7.4-10.4); Monocytes Percent Auto 11.2 % (2.6-8.5); Neutrophils Absolute Auto 6.6 K/mm3 (1.3-6.7); Neutrophils Percent Auto 78.1 % (45.5-73.1); Platelet Count Result 460 k/mm3 (150-375); Red Cell Distribution Width 12.6 % (11.5-14.5); White Blood Count 8.5 K/mm3 (4.5-10.0)
[2022-04-09] MEDS: LEVOTHYROXINE SODIUM 88 MCG TABLET PO (06:31)
[2022-04-09 06:39] LABS: Albumin Level 2.2 g/dL (3.5-5.1); Anion Gap 4 mmol/L (8-16); Blood Urea Nitrogen 4 mg/dL (7-17); Calcium 7.2 mg/dL (8.4-10.2); Carbon Dioxide 24 mmol/L (22-30); Chloride 107 mmol/L (98-107); Estimated CRCL calculation 46 ml/min; Estimated Glomerular Filt Rate > 60; Glucose 99 mg/dL (65-110); Magnesium 1.7 mg/dL (1.6-2.3); Phosphorus 3.5 mg/dL (2.5-4.5); Potassium 3.1 mmol/L (3.4-5.0); Sodium 135 mmol/L (137-145)
[2022-04-09 07:07] LABS: Vancomycin Trough 10.2 ug/mL (10.0-20.0)
[2022-04-09] MEDS: DOCUSATE SODIUM 100 MG CAPSULE PO (09:15)
[2022-04-09] MEDS: ASPIRIN 81 MG ENTERIC TABLET PO (09:15)
[2022-04-09] MEDS: METOPROLOL SUCCINATE EXT REL 50 MG TABCR PO (09:15)
[2022-04-09] MEDS: ENOXAPARIN 40 MG/0.4 ML SYRINGE SUB-Q (09:15)
[2022-04-09] MEDS: CLOPIDOGREL BISULFATE 75 MG TABLET PO (09:15)
[2022-04-09] MEDS: guaiFENesin 12 HR 600 MG TABCR PO ×2 (09:16→20:27)
[2022-04-09] MEDS: FAMOTIDINE 20 MG TABLET PO (09:16)
[2022-04-09] MEDS: POTASSIUM CHLORIDE 20 MEQ TABLET 40 MEQ PO (09:16)
[2022-04-09] MEDS: CHOLECALCIFEROL 1,000 UNITS TABLET 2000 UNITS PO (09:16)
[2022-04-09] MEDS: PANTOPRAZOLE 40 MG TABLET PO (09:16)
[2022-04-09] MEDS: OSELTAMIVIR PHOSPHATE 75 MG CAPSULE PO ×2 (09:16→20:27)
[2022-04-09] MEDS: MAGNESIUM SULF 2 GM/WATER 50ML 2 GM/50 ML BAG IVPB (09:16)
[2022-04-09 11:40] LABS: Hematocrit 25.1 % (37.0-47.0); Hemoglobin 8.3 g/dL (12.0-15.0)
[2022-04-09] MEDS: CEFDINIR 300 MG CAPSULE PO ×2 (12:26→20:27)
--- NOTE | 2022-04-09 17:00 | PM.IMPN ---
Progress Note: A&P Assessment and Plan (1) Influenza A: Code(s): J10.1 - Influenza due to other identified influenza virus with other respiratory manifestations Status: Acute Assessment and Plan: Tamiflu started April 06, 2022, to complete a 5 day course. Slowly improving. Continue supportive care (2) Anemia: Code(s): D64.9 - Anemia, unspecified Status: Acute Assessment and Plan: Hgb normal on admission but dropped to 8.3 this morning. Normocytic. No evidence of acute blood loss. Rleated to influenza? or autoimmune? She is on Plavix and ASA. Also on Pepcid and protonix (both home meds). Serial HH. Check stool guaiac. Check iron studies, LDH and B12. Check RF. (3) Pneumonia: Code(s): J18.9 - Pneumonia, unspecified organism Status: Acute Assessment and Plan: CXR on admission shows airspace opacities in the lower lung zones and perihilar right upper lobe consistent with pneumonia. Started on Rocephin and azithromycin as well as vancomycin, MRSA swab positive for MRSA. Urine antigens pending. Deescalate to oral agents today. (4) Hyponatremia: Code(s): E87.1 - Hypo-osmolality and hyponatremia Status: Acute Assessment and Plan: Improved with fluids. TSH within normal limits. Na better today. IV fluids have been stopped (5) Hypothyroidism: Code(s): E03.9 - Hypothyroidism, unspecified Status: Acute Assessment and Plan: TSH normal. Continue levothyroxine (6) Elevated LFTs: Code(s): R79.89 - Other specified abnormal findings of blood chemistry Status: Acute Assessment and Plan: Resolved Plan DVT prophylaxis with Lovenox Code status full code Subjective Date/time seen: 04/09/22 17:00 Interval history: 77yo female here for influenza A and PNA. Cough is mostly nonproductive now. Cough is occasionally productive yellow sputum. She is sore in her ribs and chest from the coughing. She denies any shortness of breath. No melena or hematochezia. No hemoptysis. She does not have dyspnea on exertion but she does walk slowly to the bathroom. She does have a history of lupus and Sjogren's. Not currently on treatment for these disorders. Exam Narrative: AF 99.0 177/60 87 18 98% ra Gen - NARD Chest -bibasilar inspiratory crackles. CV - RRR S1/S2 Abd - Soft, NT/ND, Positive BS Ext - No pedal edema Neuro - Alert and oriented. Nonfocal exam. Psych - Nml mood and affect Skin - Warm and dry Objective Data Vital Signs Vital Signs: Vital Signs - 24 hr 04/08/22 20:54 04/08/22 20:54 04/08/22 21:10 Temperature Pulse Rate 76 65 Respiratory Rate 18 18 Blood Pressure Pulse Oximetry 95 Oxygen Delivery Room Air 04/08/22 22:00 04/09/22 01:01 04/08/22 20:00 Temperature 98.9 F Pulse Rate 99 68 Respiratory Rate 22 H 18 Blood Pressure 141/68 H Pulse Oximetry 96 Oxygen Delivery Room Air 04/09/22 06:00 04/09/22 09:15 04/09/22 10:00 Temperature 98.0 F Pulse Rate 90 90 95 Respiratory Rate 18 18 Blood Pressure 153/54 H Pulse Oximetry 95 Oxygen Delivery 04/09/22 10:10 04/09/22 10:11 04/09/22 08:00 Temperature Pulse Rate 92 Respiratory Rate 18 Blood Pressure Pulse Oximetry 94 Oxygen Delivery Room Air Room Air 04/09/22 13:51 04/09/22 14:00 04/09/22 14:00 Temperature 99.0 F Pulse Rate 90 87 87 Respiratory Rate 18 18 18 Blood Pressure 177/60 H Pulse Oximetry 98 Oxygen Delivery Intake/Output Intake/Output: Intake & Output 04/06/22 04/07/22 04/08/22 04/09/22 23:59 23:59 23:59 23:59 Intake Total 1300 5310 3512 565 Output Total 1100 Balance 1300 4210 3512 565 Meds/Results Medications: Active Medications Generic Name Dose Route Start Last Admin Trade Name Freq PRN Reason Stop Dose Admin Acetaminophen 650 mg 04/07/22 00:00 04/08/22 22:49 Acetaminophen 325 Mg Tablet PO 650
[2022-04-09] MEDS: DOXYCYCLINE HYCLATE 100 MG TABLET PO (20:27)
[2022-04-09 21:29] LABS: Hematocrit 27.8 % (37.0-47.0); Hemoglobin 9.4 g/dL (12.0-15.0)
[2022-04-09 21:44] LABS: Alanine Aminotransferase 68 U/L (6-35); Albumin Level 2.8 g/dL (3.5-5.1); Alkaline Phosphatase 112 U/L (38-126); Aspartate Amino Transferase 101 U/L (14-36); Bilirubin,Total 0.8 mg/dL (0.2-1.3); Lactate Dehydrogenase 242 U/L (120-246)
[2022-04-09 21:47] LABS: Rheumatoid Factor 16.9 IU/ML (<12)
[2022-04-09] MEDS: ACETAMINOPHEN 325 MG TABLET 650 MG PO (22:02)
[2022-04-09] MEDS: ZOLPIDEM TARTRATE (*CRX) 5 MG TABLET 10 MG PO (22:02)
[2022-04-09 23:12] LABS: Iron 21 ug/dL (37-170)
[2022-04-09 23:21] LABS: Percent Iron Saturation 14 % (20-50)
[2022-04-10] VITALS (8 sets, daily range): BP systolic 139–140; BP diastolic 46–50; PULSE 86–96; RESP 14–20; TEMP 36.6–37.2; O2SAT 96
[2022-04-10] MEDS: IPRATROPIUM BR 0.02% INH SOLN 0.5 MG/2.5 ML VIAL INHALATION ×2 (02:02→08:09)
[2022-04-10] MEDS: ALBUTEROL SULFATE NEB 2.5 MG/3 ML INH INHALATION ×2 (02:02→08:09)
[2022-04-10 04:10] LABS: Legionella pneumophila Ag Ur Not Detected (Not Detected)
[2022-04-10] MEDS: LEVOTHYROXINE SODIUM 88 MCG TABLET PO (05:52)
[2022-04-10 07:05] LABS: Basophils Percent Auto 0.3 % (0.2-1.2); Eosinophils Absolute Auto 0.1 K/mm3 (0-0.3); Eosinophils Percent Auto 1.9 % (0-4.4); Hemoglobin 8.2 g/dL (12.0-15.0); Immature Granulocyte Absolute 0.06 K/mm3 (0.00-0.031); Immature Granulocyte Percent A 0.8 % (0-0.5); Lymphocytes Absolute Auto 0.75 K/mm3 (0.9-3.2); Lymphocytes Percent Auto 10.4 % (18.3-44.2); Mean Corpuscular HGB Conc 34.2 g/dl (32-36); Mean Corpuscular Hemoglobin 31.1 pg (26-34); Mean Corpuscular Volume 90.9 fl (80-100); Mean Platelet Volume 8.8 fl (7.4-10.4); Monocytes Percent Auto 13.3 % (2.6-8.5); Neutrophils Absolute Auto 5.3 K/mm3 (1.3-6.7); Neutrophils Percent Auto 73.3 % (45.5-73.1); Platelet Count Result 492 k/mm3 (150-375); Red Blood Count 2.64 M/mm3 (4.2-5.4); Red Cell Distribution Width 12.7 % (11.5-14.5); White Blood Count 7.2 K/mm3 (4.5-10.0)
[2022-04-10 07:21] LABS: Alanine Aminotransferase 56 U/L (6-35); Albumin Level 2.3 g/dL (3.5-5.1); Alkaline Phosphatase 86 U/L (38-126); Anion Gap 0 mmol/L (8-16); Aspartate Amino Transferase 67 U/L (14-36); Bilirubin,Total 0.8 mg/dL (0.2-1.3); Blood Urea Nitrogen 4 mg/dL (7-17); Calcium 7.5 mg/dL (8.4-10.2); Carbon Dioxide 28 mmol/L (22-30); Chloride 105 mmol/L (98-107); Estimated CRCL calculation 52 ml/min; Estimated Glomerular Filt Rate > 60; Glucose 91 mg/dL (65-110); Magnesium 1.9 mg/dL (1.6-2.3); Phosphorus 3.6 mg/dL (2.5-4.5); Sodium 133 mmol/L (137-145)
[2022-04-10] MEDS: PANTOPRAZOLE 40 MG TABLET PO (09:08)
[2022-04-10] MEDS: DOCUSATE SODIUM 100 MG CAPSULE PO (09:08)
[2022-04-10] MEDS: OSELTAMIVIR PHOSPHATE 75 MG CAPSULE PO (09:08)
[2022-04-10] MEDS: ASPIRIN 81 MG ENTERIC TABLET PO (09:08)
[2022-04-10] MEDS: CEFDINIR 300 MG CAPSULE PO (09:08)
[2022-04-10] MEDS: CHOLECALCIFEROL 1,000 UNITS TABLET 2000 UNITS PO (09:08)
[2022-04-10] MEDS: ENOXAPARIN 40 MG/0.4 ML SYRINGE SUB-Q (09:08)
[2022-04-10] MEDS: DOXYCYCLINE HYCLATE 100 MG TABLET PO (09:08)
[2022-04-10] MEDS: METOPROLOL SUCCINATE EXT REL 50 MG TABCR PO (09:09)
[2022-04-10] MEDS: guaiFENesin 12 HR 600 MG TABCR PO (09:09)
[2022-04-10] MEDS: CLOPIDOGREL BISULFATE 75 MG TABLET PO (09:09)
[2022-04-10] MEDS: FAMOTIDINE 20 MG TABLET PO (09:09)
--- NOTE | 2022-04-10 09:16 | PCOTNOTE ---
Attempted to see patient this am, however patient refused. Pt already up in chair reported already completing ADLs late yesterday.
[2022-04-10 12:01] LABS: Folic Acid > 20.0 ng/mL (2.76->20)
--- NOTE | 2022-04-10 16:10 | PCRCNOTE ---
Window of time for administration has passed. See next scheduled administration.
--- NOTE | 2022-04-10 16:51 | PM.DS ---
DS: Admitting Diagnosis Discharge Date 04/10/22 Admitting Diagnosis Cough and fever DS: Discharge Diagnosis Discharge Diagnosis (1) Influenza A: Code(s): J10.1 - Influenza due to other identified influenza virus with other respiratory manifestations Status: Acute (2) Anemia: Code(s): D64.9 - Anemia, unspecified Status: Acute (3) Pneumonia: Code(s): J18.9 - Pneumonia, unspecified organism Status: Acute (4) Hyponatremia: Code(s): E87.1 - Hypo-osmolality and hyponatremia Status: Acute (5) Hypothyroidism: Code(s): E03.9 - Hypothyroidism, unspecified Status: Acute (6) Elevated LFTs: Code(s): R79.89 - Other specified abnormal findings of blood chemistry Status: Acute DS: Summary Hospital Course Reason for hospitalization: 77yo female here for influenza A and PNA. Please see H&P for details Hospital Course: Patient presented to the ED for evaluation of cough and fever. She tested positive for influenza A and CXR showing airspace opacities in the lower lung zones and perihilar right upper lobe consistent with pneumonia. She was started on Rocephin, azithromycin as well as vancomycin. MRSA swab positive for MRSA.? Urine pneumococcal antigens pending. COVID was negative. Tamiflu started April 06, 2022, to complete a 5 day course. Hgb normal on admission but dropped to 8.3. Normocytic. No evidence of acute blood loss. She is on Plavix and ASA. Also on Pepcid and protonix (both home meds). Serial HH showing stability. Iron studies more consistent with anemia of chronic disease. LDH and B12 normal. RF 17. Mild hyponatremia noted and improved with fluids. TSH was within normal limits. she had clinical improvement. She overall did well. She was able to be discharged home on 04/10/2022. Status at Discharge Cognitive/behavioral status at discharge: Stable Time Spent with Patient Time attestation: Total time spent providing and/or coordinating discharge services: 38 minutes Time spent: Greater than 30 minutes Exam Narrative: AF 97.8 140/50 95 20 96% ra Gen - NARD Chest -bibasilar inspiratory crackles. CV - RRR S1/S2 Abd - Soft, NT/ND, Positive BS Ext - No pedal edema Psych - Nml mood and affect Skin - Warm and dry DS: Data Data Completed and Pending Labs on day of discharge: Labs from last 24 hours 04/10/22 04/10/22 04/09/22 06:36 06:36 21:12 WBC 7.2 RBC 2.64 L Hgb 8.2 L Hct 24.0 L MCV 90.9 MCH 31.1 MCHC 34.2 RDW 12.7 Plt Count 492 H MPV 8.8 Immature Gran % (Auto) 0.8 H Neut % (Auto) 73.3 H Lymph % (Auto) 10.4 L [place] % (Auto) 13.3 H Eos % (Auto) 1.9 Baso % (Auto) 0.3 Lymph # (Auto) 0.75 L [place] # (Auto) 1.0 H Eos # (Auto) 0.1 Baso # (Auto) 0.0 Abs Immat Gran (auto) 0.06 H Absolute Neuts (auto) 5.3 Absolute Nucleated RBC 0.0 Nucleated RBC % 0.0 Sodium 133 L Potassium 4.0 Chloride 105 Carbon Dioxide 28 Anion Gap 0 L BUN 4 L Creatinine 0.70 Estim Creat Clear Calc 52 Estimated GFR > 60 Glucose 91 Serum Osmolality Calcium 7.5 L Phosphorus 3.6 Magnesium 1.9 Iron TIBC % Saturation Ferritin Total Bilirubin 0.8 Direct Bilirubin AST 67 H ALT 56 H Alkaline Phosphatase 86 Lactate Dehydrogenase Total Protein 5.0 L Albumin 2.3 L Vitamin B12 Folate Rheumatoid Factor Anti-Cycl Citrul Peptide Pending Ur L.pneumophila Ag 04/09/22 04/09/22 04/09/22 21:12 21:12 21:12 WBC RBC Hgb Hct MCV MCH MCHC RDW Plt Count MPV Immature Gran % (Auto) Neut % (Auto) Lymph % (Auto) [place] % (Auto) Eos % (Auto) Baso % (Auto) Lymph # (Auto) [place] # (Auto) Eos # (Auto) Baso # (Auto) Abs Immat Gran (auto) Absolute Neuts (auto) Absolute Nucleated RBC Nucleated RBC % Sodium P
[2022-04-10 19:17] LABS: Mycoplasma IgM Antibody Titer 42 U/mL (<770)
[2022-04-10 21:56] LABS: Osmolality, Urine 230 mOsm/kg (50-1200)
[2022-04-12 07:49] LABS: Pneumococcal Antigen Urine Not Detected (Not Detected)
[2022-04-15 22:13] LABS: Anti Cyclic Citrullinated Pept <16 Units (<20)
--- NOTE | 2022-04-17 14:08 | PC.NURSE ---
Anti CCP is <16; WNL. DR. Correa aware.
== END 2022-04-10 18:50 | disposition home or self-care (01) ==
LOC: ANHED 17:08 → ANH3MEDSUR 04-08 13:10
PROVIDERS: Emergency Medicine; Physician Assistant; Admitting Provider Internal Medicine; Emergency Provider General Practice; PCP Internal Medicine; Visit Provider Internal Medicine
DX: J10.1 Influenza due to other identified influenza virus with other respiratory manifestations (principal); J18.9 Pneumonia, unspecified organism; R79.89 Other specified abnormal findings of blood chemistry; M06.9 Rheumatoid arthritis, unspecified; M35.00 Sjogren syndrome, unspecified; I10 Essential (primary) hypertension; R09.81 Nasal congestion; D64.9 Anemia, unspecified; E87.1 Hypo-osmolality and hyponatremia; E07.9 Disorder of thyroid, unspecified; E03.9 Hypothyroidism, unspecified; R94.31 Abnormal electrocardiogram [ECG] [EKG]; M19.90 Unspecified osteoarthritis, unspecified site; M47.816 Spondylosis without myelopathy or radiculopathy, lumbar region; M47.812 Spondylosis without myelopathy or radiculopathy, cervical region; Z20.822 Contact with and (suspected) exposure to COVID-19; M81.0 Age-related osteoporosis without current pathological fracture; Z86.73 Personal history of transient ischemic attack (TIA), and cerebral infarction without residual deficits; Z79.82 Long term (current) use of aspirin; Z79.02 Long term (current) use of antithrombotics/antiplatelets; Z79.899 Other long term (current) drug therapy; Z82.49 Family history of ischemic heart disease and other diseases of the circulatory system
CPT/HCPCS: 36415; 71046; 80048; 80053; 80069; 80076; 80202; 82570; 82607; 82728; 82746; 83540; 83550; 83605; 83615; 83735; 83930; 83935; 84100; 84300; 84443; 85014; 85018; 85025; 86140; 86200; 86430; 86738; 87040; 87081; 87449; 87636; 87899; 93005; 94640; 96361; 96365; 96366; 96367; 96368; 96372; 96376; 97110; 97116; 97161; 97165; 99285; A9270; G0378; J0456; J0696; J1650; J3370; J3475; J7030

== ENCOUNTER 2022-05-11 12:33 | Outpatient (CLI) | payer MEDICARE, OTHER, SELFPAY ==
[2022-05-11 13:56] LABS: Hematocrit 34.2 % (37.0-47.0); Mean Corpuscular HGB Conc 32.2 g/dl (32-36); Mean Corpuscular Hemoglobin 31.3 pg (26-34); Mean Corpuscular Volume 97.4 fl (80-100); Mean Platelet Volume 10.4 fl (7.4-10.4); Platelet Count Result 242 k/mm3 (150-375); Red Blood Count 3.51 M/mm3 (4.2-5.4); Red Cell Distribution Width 13.5 % (11.5-14.5); White Blood Count 6.1 K/mm3 (4.5-10.0)
== END 2022-05-11 12:34 | disposition home or self-care (01) ==
PROVIDERS: PCP Internal Medicine; Visit Provider Internal Medicine
DX: D64.9 Anemia, unspecified (principal)
CPT/HCPCS: 36415; 85027

== ENCOUNTER 2023-01-07 10:35 | Outpatient (CLI) | payer MEDICARE, OTHER, SELFPAY ==
--- NOTE | ~2023-01-07 | MR_ITS ---
EXAMINATION: MR brain/brain stem wo/w con DATE: 01/07/2023 11:34 INDICATION: Other giant cell arteritis. TECHNIQUE: Magnetic resonance imaging (MRI) of the brain and brainstem was performed without and with 11 mL MultiHance intravenous contrast. COMPARISON: None. FINDINGS: There are scattered areas of nonspecific increased T2-weighted signal intensity in the cere bral white matter and nadege, which is within normal limits for the patient's age. There is no intracra nial hemorrhage, acute infarction, or abnormal intracranial mass lesion. The ventricles are normal in size. There is mild mucosal thickening in the ethmoid sinuses. There are likely changes of ocular le ns replacement surgeries. There is a small left mastoid effusion. IMPRESSION: 1. Normal aging brain. Reviewed, dictated and finalized at location E. IMPRESSION: 1. Normal aging brain.
== END 2023-01-07 10:36 | disposition home or self-care (01) ==
PROVIDERS: PCP Internal Medicine; Visit Provider Internal Medicine
DX: M31.6 Other giant cell arteritis (principal)
CPT/HCPCS: 70553; A9577

== ENCOUNTER 2023-09-10 15:05 | Outpatient (CLI) | payer MEDICARE, OTHER, SELFPAY ==
--- NOTE | ~2023-09-10 | MM_ITS ---
EXAMINATION: MM screening adams BI w kacy HISTORY: Screening mammogram TECHNIQUE: Craniocaudal and mediolateral oblique 3-D tomosynthesis images were obtained and synthetic 2-D images were generated. CAD analysis was submitted and interpreted. COMPARISON: 12/09/2021, 09/27/2020 bilateral screening mammogram examinations BREAST PARENCHYMAL COMPOSITION: There are scattered areas of fibroglandular density. FINDINGS: There is no evidence of suspicious mass, calcification, or architectural distortion to sugg est malignancy in either breast. There has been no suspicious interval change. IMPRESSION: 1. No mammographic evidence of malignancy. 2. Recommend routine screening mammography in one year. BI-RADS Category 1: Negative Reviewed, dictated and finalized at location A.
== END 2023-09-10 15:06 | disposition home or self-care (01) ==
LOC: ANHIMG 15:08
PROVIDERS: PCP Internal Medicine; Visit Provider Internal Medicine
DX: Z12.31 Encounter for screening mammogram for malignant neoplasm of breast (principal)
CPT/HCPCS: 77063; 77067

== ENCOUNTER 2023-09-28 07:49 | Outpatient (CLI) | payer MEDICARE, OTHER, SELFPAY ==
--- NOTE | ~2023-09-28 | US_ITS ---
EXAMINATION: US right upper quadrant DATE: 09/28/2023 INDICATION: Increased liver function TECHNIQUE: Multiple grayscale and Doppler ultrasound images of the abdomen were obtained. COMPARISON: None FINDINGS: The pancreatic head and body are normal in appearance. The pancreatic tail is not visualized. Visua lized proximal to mid inferior vena cava is normal. Small amount of atherosclerotic plaque along the visualized portions of the normal caliber proximal to mid abdominal aorta. Liver has normal echogenic ity and contour, with a smooth surface. No liver lesion identified. No intrahepatic biliary duct dila tion suspected. Portal venous flow was seen in the hepatopetal, normal direction and has normal Doppl er waveform. The bladder is not visualized consistent with reported cholecystectomy. Common bile duct measures to 4-5 mm in maximal diameter which is normal. IMPRESSION: 1. Status post cholecystectomy. Otherwise normal right upper quadrant ultrasound with no intra or ext ra hepatic biliary ductal dilation. Reviewed, dictated and finalized at location B. IMPRESSION: 1. Status post cholecystectomy. Otherwise normal right upper quadrant ultrasoun d with no intra or extra hepatic biliary ductal dilation.
== END 2023-09-28 07:50 | disposition home or self-care (01) ==
PROVIDERS: PCP Internal Medicine; Visit Provider Internal Medicine
DX: R94.5 Abnormal results of liver function studies (principal); Z90.49 Acquired absence of other specified parts of digestive tract
CPT/HCPCS: 76705

== ENCOUNTER 2024-07-20 15:03 | Outpatient (CLI) | payer MEDICARE, OTHER, SELFPAY ==
--- NOTE | ~2024-07-20 | DEXA_ITS ---
Bone Density Report Name: TRISH PFEIFFER Age: 79 Sex: Female Ethnicity: White Date of : 1945 Indication: postmenopausal osteoporosis; height loss; history of glucocorticoids; hysterectomy; rheumatoid arthritis; secondary osteoporosis; Referring Provider: SHON, XENIA Study: Bone densitometry was performed. Exam Date: July 20, 2024 Accession number: [id number] Bone Density: Region BMD T-score Z-score Classification AP Spine(L1-L4) 0.891 -1.4 1.1 Osteopenia Femoral Neck (Left) 0.512 -3.0 -0.9 Osteoporosis Total Hip (Left) 0.581 -3.0 -1.0 Osteoporosis Femoral Neck (Right) 0.494 -3.2 -1.0 Osteoporosis Total Hip (Right) 0.564 -3.1 -1.2 Osteoporosis Total Hip Mean 0.573 -3.1 -1.1 Osteoporosis World Health Organization criteria for BMD impression classify patients as: Normal (T-score at or above -1.0), Osteopenia (T-score between -1.0 and -2.5), or Osteoporosis (T-score at or below -2.5). 10-year Fracture Risk: FRAX not reported because: Some T-score for Spine Total or Hip Total or Femoral Neck at or below -2.5 Previous Exams: Region Exam Age BMD T-score BMD Change BMD Change Date g/cm2 vs Baseline vs Previous AP Spine (L1-L4) 07/20/2024 79 0.891 -1.4 -0.032 (-3.5%) -0.039 (-4.2%) 12/09/2021 76 0.930 -1.1 0.007 (0.8%) 0.007 (0.8%) 09/27/2019 74 0.923 -1.1 Total Hip(Left) 07/20/2024 79 0.581 -3.0 -0.069 (-10.6% -0.047 (-7.4%) 12/09/2021 76 0.628 -2.6 -0.022 (-3.4%) -0.022 (-3.4%) 09/27/2019 74 0.650 -2.4 Total Hip(Right) 07/20/2024 79 0.564 -3.1 -0.115 (-16.9% -0.070 (-11.1% 12/09/2021 76 0.635 -2.5 -0.045 (-6.6%) -0.045 (-6.6%) 09/27/2019 74 0.679 -2.2 *Denotes significance at 95% confidence level, LSC for AP Spine = 0.022 g/cm2, LSC for Total Hip = 0.027 g/cm2 Clinical Information Provided by Patient: Has taken Glucocorticoids Has rheumatoid arthritis Has secondary osteoporosis Has used the following medications: Vitamin D, Calcium Has the following medical conditions: Hysterectomy Patient maximum height was 65 Menopause Age: 38 No regular weight bearing exercise Does not regularly consume dairy products Drinks caffeinated beverages Onset of menses at age 15 Number of children 1 Impression: The patient has osteoporosis, based on the Right Femoral Neck T-score. The patient has risk factors, including: history of glucocorticoid therapy. The BMD for the AP Spine (L1-L4) decreased, changing by -4.2% since the last DXA exam. The BMD for the Total Hip(Left) decreased, changing by -7.4% since the last DXA exam. The BMD for the Total Hip(Right) decreased, changing by -11.1% since the last DXA exam. Discussion: INCREASED RISK OF FRACTURE. BONE DENSITY IS UNDESIRABLY LOW AT ONE OR MORE SKELETAL SITES, CONSISTENT WITH POSTMENOPAUSAL OSTEOPOROSIS. This patient's lowest T-score meets the World Health Organization's (WHO) criteria for osteoporosis at one or more sites (T-score -2.5 or below). In untreated patients, the risk of osteoporotic fracture increases approximately two-fold for each 1.0 SD decrease in T-score. Low bone density is not the only risk factor for fracture; also consider factors such as patient's age, frailty or poor health, risk of falling, risk of injury, previous osteoporotic fracture, family history of osteoporosis, cigarette smoking, low body weight, etc. Not everyone with low bone mineral density has osteoporosis; osteomalacia and other metabolic bone disorders should also be considered. Patients who have osteoporosis should be evaluated for specific diseases and conditions (secondary causes) that may cause or contribute to bone loss. The [place] Association of Clinical Endocrinologists (AACE) and National Osteoporosis Foundation (NOF) recommend pharmacologic intervention for all postmenopausal women whose T-score is in this range. The patient should follow a healthful lifestyle (good nutrition with adequate calcium and vitamin D, and appropriate weight-bearing exercise). Follow-Up: Consider a repeat BMD and Vertebral Fracture Assessment (VFA) exam in 2 years or sooner if medically necessary, to reassess this patient's status. Reported by: GORGE on 07/20/2024 3:44:00 PM. Reviewed, dictated and finalized at location [facility]
--- OUTSIDE RECORDS SUMMARY | 2024-07-20 15:15 | XMS_ITS | Data Portability ---
Author Organization [place] - S [employer], Main Office Address [address] [place] [address] Care Team Providers Care Certified Juvenile Probation Officer Name Role Phone LUISARTURABY Marquez Primary Care Provider [facility] Parasitologist Assessment Encounter Date Assessment Date Assessment LastModified by Organization Details LastModified Time 05/26/2023 05/26/2023 11/17/2022: Gluc 111 GFR 56, Cr 104 04/21/2023: Dr Hope Gluc 101, GFR 47, Cr1.18H, T bili 1.8, AST/ALT 98/121 PLT 131 Not available 05/26/2023 14:57:23 09/29/2023 09/29/2023 11/17/2022: Gluc 111 GFR 56, Cr 104 04/21/2023: Dr Hope Gluc 101, GFR 47, Cr1.18H, T bili 1.8, AST/ALT 98/121 PLT 131 09/14/2023: TSH 0.24L Lipids: WNL GFR 58L, T bili 1.6H, AST/ALT 110H/170H 09/17/2023: Dr Jayy Leija Gluc 100, Cr 1.02, GFR 57, t bili 1.3, ALT/AST 56/65 PLT 134L 45 minutes spent with the patient and her Not available 09/29/2023 15:41:07 01/05/2024 01/05/2024 11/17/2022: Gluc 111 GFR 56, Cr 104 04/21/2023: Dr Hope Gluc 101, GFR 47, Cr1.18H, T bili 1.8, AST/ALT 98/121 PLT 131 09/14/2023: TSH 0.24L Lipids: WNL GFR 58L, T bili 1.6H, AST/ALT 110H/170H 09/17/2023: Dr Jayy Leija Gluc 100, Cr 1.02, GFR 57, t bili 1.3, ALT/AST 56/65 PLT 134L 12/29/2023: LDL 110 Cr 1.09, GFR 53L, T bili 1.4, ALT 33 Not available 01/28/2024 22:14:23 07/12/2024 07/12/2024 11/17/2022: Gluc 111 GFR 56, Cr 104 04/21/2023: Dr Hope Gluc 101, GFR 47, Cr1.18H, T bili 1.8, AST/ALT 98/121 PLT 131 09/14/2023: TSH 0.24L Lipids: WNL GFR 58L, T bili 1.6H, AST/ALT 110H/170H 09/17/2023: Dr Jayy Leija Gluc 100, Cr 1.02, GFR 57, t bili 1.3, ALT/AST 56/65 PLT 134L 12/29/2023: LDL 110 Cr 1.09, GFR 53L, T bili 1.4, ALT 33 07/07/2024: Cr 1.09, GFR 52 Not available 07/12/2024 14:21:46 Plan of Treatment Reminders Order Date Submit Date Provider Last Modified By Organization Details Last Modified Time Details Appointments Follo w Up 15 2024 01:15P Adrianna carey MD Not available Not available Not available Lab vitam in D, 25-hy droxy , total , serum 2024 025 [employer] [facility], [address] , [place], [address], 07/12/2024 14:29:56 CBC w/ auto diff 2024 025 [employer] [facility], [address], [place], [address], 07/12/2024 14:29:57 lipid panel , serum 2024 025 [employer] [facility], [address], [place], [address], 07/12/2024 14:29:55 CMP, serum or plasm a 2024 025 [facility], [address], [place], [address], 07/12/2024 14:29:54 TSH + free T4, serum 2024 025 [place] [facility], [address], [place], [address], 07/12/2024 14:29:55 rapid flu (A+B) [address] [facility], [address] [place], [address], 03/16/2024 14:41:26 SARS CoV 2 RNA (COVI D-19) , QL, 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, respi rator y speci men [address] [facility], [address] [place], [address], 03/16/2024 14:41:26 rapid strep group A, throa t [address] [facility], [address] [place], [address], 03/16/2024 14:41:27 CBC w/ auto diff 2023 024 [place] [address] [facility], [address], [place], [address], 07/03/2024 17:46:05 lipid panel , serum 2023 024 [place] [address] [facility], [address], [place], [address], 07/03/2024 17:46:05 CMP, serum or plasm a 2023 024 [place] [address] [facility], [address], [place], [address], 07/03/2024 17:46:06 TSH + free T4, serum [address] [facility], [address], [place], [address], 07/03/2024 17:46:06 vitam in D, 25-hy droxy , total , serum [address] [facility], [address], [place], [address], 07/03/2024 17:46:06 vitam in D, 25-hy droxy , total , serum 2023 024 [employer] [facility] [facility], [address], [place], [address], 12/30/2023 13:16:12 CBC w/ auto diff 2023 024 [employer] [facility], [address], [place], [address], 12/30/2023 13:16:12 lipid panel , serum 2023 024 [facility], [address], [place], [address], 12/30/2023 13:16:11 CMP, serum or plasm a 2023 024 [employer] [facility], [address], [place], [address], 12/30/2023 13:16:11 TSH + free T4, serum 2023 024 [facility], [address], [place], [address], 12/30/2023 13:16:11 hepat itis panel (A+B+ C), acute , serum 2023 024 [email or web address], [address], [place], [address], 11/29/2023 09:05:03 gamma -glut amyl trans feras e (ggt) , serum 2023 024 [place] [address] [facility], [address], [place], [address], 11/29/2023 09:05:03 vitam in D, 25-hy droxy , total , serum 2023 024 [place] [address] [facility], [address], [place], [address], 11/22/2023 14:02:55 CBC w/ auto diff 2023 024 [place] [address] [facility], [address] [facility], [place], [address], 05/22/2024 12:21:13 lipid panel , serum 2023 024 [email or web address], [address], [place], [address], 11/22/2023 14:02:54 CMP, serum or plasm a 2023 024 [email or web address], [address], [place], [address], 11/22/2023 14:02:54 TSH + free T4, serum 2023 024 [email or web address], [address], [place], [address], 11/22/2023 14:02:55 Referral pain manag ement refer frederick - Pleas e call patie nt to feroz arreola. Thank you. 2024 025 [employer], [address], [address] [address], [place], [address], 07/13/2024 12:15:[address] refer ral - Pleas e call patie nt to sched ule an appoi ntmen t. Thank you. 2024 025 [place], [address], [address], [place], [address], 07/13/2024 11:40:35 eye care refer ral - Pleas e call patie nt to sched ule an appoi ntmen t. Thank you. 2024 025 [facility], [address] [place] [address], [address], 07/13/2024 12:00:38 pain manag ement refer ral 2023 024 [email or web address] [facility], 2022 Clarice Abreu, [address], [address], 02/02/2024 09:52:[address] refer ral 2023 024 [email or web address] [place], [address], [address], [place], [address], 05/08/2024 08:37:26 eye care refer ral 2023 024 [email or web address] [facility], [address] [place] [address], [address], 05/08/2024 08:37:[address] refer ral 2023 024 [place], [address], [address], [place], [address], 04/03/2024 16:25:33 eye care refer ral 2023 024 [email or web address] [facility], [address] [place] [address], [address], 04/03/2024 16:25:[address] refer [facility] 2023 024 [email or web address] [place], [address], [address], [place], [address], 12/20/2023 09:12:12 rheum atolo gist refer [facility] 2023 024 [email or web address] Mariann Hope MD, [address] [facility], [address], [place], [address], 12/20/2023 09:12:11 eye care refer [facility] 2023 024 [email or web address] [facility], [address] [place] [address], [address], 05/22/2024 09:11:51 Procedures colon oscop y scree alena (PROC ) - Pleas e call patie nt to sched ule an katoi casey t. Thank you. 2024 025 RODRÍGUEZ Bonilla MD, [address], [facility] [address], [place], [address], 07/13/2024 12:15:29 colon oscop y scree alena (PROC ) 2023 024 [email or web address] Bogdan Bonilla MD, [address], [address], [place], [address], 04/06/2024 09:35:03 colon oscop y scree alena (PROC ) 2023 024 [email or web address] Bogdan Bonilla MD, [address], [facility] [address], [address], 04/03/2024 16:26:19 Surgeries None recor ded. Imaging MAMMO , scree alena, digit al, bilat eral - Pleas e call patie nt to sched ule. 2024 025 [facility] ([facility]), [address] [place], [address], 07/12/2024 14:51:27 bone densi ty - Pleas e call patie nt to sched ule. 2024 025 [facility] ([facility]), [address] [place], [address], 07/12/2024 14:51:26 DEXA, axial skele ton [email or web address], [address] [address], [place], [address], 07/20/2024 11:21:41 MAMMO , scree alena, digit al, bilat eral 2023 024 SHEEBA Not available 09/11/2023 11:15:36 US, liver 2023 024 [facility], [address] [address], [place], [address], 09/28/2023 12:16:06 Medication Orders zolpi dem 10 mg table t 2023 024 [id number] [facility], [address] [place] [address], [address], 03/09/2024 16:41:31 amoxi cilli n 875 mg-po tassi um clavu lanat e 125 mg table t 2023 024 [email or web address] [facility] [address] [facility], [address] [place] [address], [address], 07/12/2024 14:08:22 benzo natat e 100 mg capsu le 2023 024 [email or web address] [facility] [address] [facility], [address] [place] [address], [address], 07/12/2024 14:08:27 Lunes ta 1 mg table t 2023 024 [email or web address] 2 [facility], [address] [facility], [place], [address], 03/09/2024 16:40:36 Patient TargetsNo targets recorded. Patient Instructions Encounter Date Encounter Id Patient Instructions Last Modified By Organization Details Last Modified Time 09/29/2023 [id number] Personalized a lth Plan and Screening Recommendations Advance Directives - Do you have one? Advance Directives - Do we have your advance directive on file in your health record? Primary Prevention/Interven tion (prevents or decreases the chance of common diseases from occurring) Smoking Risk: Alcohol Misuse Screening: Weight: Physical activity: Nutrition: Fall Risk (screened today): Vaccines Pneumococcal: Influenza: Chronic Disease Risks Stroke: I have no recommendations Active diagnosis, Continue current treatment plan Heart Attack: I have no recommendations Act jennifer diagnosis, Continue current treatment plan Clogging of the Arteries: I have no recommendations Act jennifer diagnosis, Continue current treatment plan Diabetes: Active diagnosis, Continue current treatment plan Secondary Prevention/Interven tion (detects treatable diseases before they may cause symptoms, disability, or ) Breast Cancer Screening with mammogram: Cervical/Uterine/Ov janae Cancer Screening: Osteoporosis Screening: Date Screening Last Performed: Colon Cancer Screening: Date Screening Last Performed: Eye Disease Screening: Dementia Risk: Depression Screening: Active diagnosis, Continue current treatment plan [email or web address] Not available 09/28/2023 10:17:43 01/05/2024 [id number] dementia rating scale-2* [email or web address] Not available 01/05/2024 15:15:16 alcohol misuse* [email or web address] Not available 01/05/2024 15:15:28 depression screening* Not available 01/05/2024 15:15:46 Timed Up and Go test (TUG)* Not available 01/05/2024 15:15:57 multi-dimensiona l health assessment questionnaire* [email or web address] Not available 01/05/2024 15:14:43 advance directiv es: care instructions [email or web address] Not available 01/06/2024 09:43:14 advance care planning: care instructions [email or web address] Not available 01/06/2024 09:43:13 [place] Advance Directives [email or web address] Not available 01/06/2024 09:43:13 Personalized [facility] Plan and Screening Recommendations Advance Directives - Do you have one? No You have indicated that you are capable of preparing your advance care directive Advance Directives - Do we have your advance directive on file in your health record? Primary Prevention/Interven tion (prevents or decreases the chance of common diseases from occurring) Smoking Risk: Non Smoker Alcohol Misuse Screening: Negative Weight: Appropriate Physical activity: Need more exercise/physical activity minimum of 10-20 minutes of activity that causes mild breathlessness/day Nutrition: Good Average Refer to attached handout Heart-Healthy Diet: After Your Visit Fall Risk (screened today): Low Refer to attached handout Preventing Falls: After your Visit Vaccines Pneumococcal: Ordered Recommended today Recommended today, but you have declined No further needed Influenza: Ordered Recommended today Chronic Disease Risks Stroke: Low Risk Intermediate Risk Heart Attack: Low risk Intermediate Risk Clogging of the Arteries: Low risk Intermediate Risk Diabetes: Low Risk I have no recommendations Secondary Prevention/Interven tion (detects treatable diseases before they may cause symptoms, disability, or ) Breast Cancer Screening with mammogram: Cervical/Uterine/Ov janae Cancer Screening: No screening necessary Osteoporosis Screening: Your next DEXA in: Ordered Date Screening Last Performed: 2021 Colon Cancer Screening: No screening necessary Eye Disease Screening: Ordered Recommended today Dementia Risk: Low I have no recommendations Depression Screening: Negative [email or web address] Not available 01/05/2024 15:18:53 Reason for Referral Director Meetings Referral for Rheumatoid arthritis Referring Physician: Aby [facility], Encounter Date: 05/26/2023 Eye Care Referral for Rheuma toid arthritis Referring Physician: Aby [facility], Encounter Date: 05/26/2023 Drug Abuse Worker Referral for Ch ronic kidney disease Referring Physician: Aby [facility], Encounter Date: 05/26/2023 Eye Care Referral for Rheuma toid arthritis Referring Physician: Aby [facility], Encounter Date: 09/29/2023 Drug Abuse Worker Referral for Ch ronic kidney disease Referring Physician: Aby [facility], Encounter Date: 09/29/2023 Eye Care Referral for Rheuma toid arthritis Referring Physician: Aby [facility], Encounter Date: 01/05/2024 Drug Abuse Worker Referral for Ch ronic kidney disease Referring Physician: Aby [facility], Encounter Date: 01/05/2024 Pain Management Referral for Neck pain Referring Physician: Aby [facility], Encounter Date: 01/05/2024 Eye Care Referral for Rheuma toid arthritis Please call patient to schedule an appointment. Thank you. Referring Physician: Aby [facility], Encounter Date: 07/12/2024 Drug Abuse Worker Referral for Ch ronic kidney disease Please call patient to schedule an appointment. Thank you. Referring Physician: Aby [facility], Encounter Date: 07/12/2024 Pain Management Referral for Neck pain Please call patient to schedule an appointment. Thank you. Referring Physician: Kalyani Garrison [facility], Encounter Date: 07/12/2024 Results Created Date Observation Date Name Description Value Unit Range Abnormal Flag Note LastModifiedBy Organization Detail LastModifiedTime 09/11/19 24 09/10/2023 MAMMO , scree alena, digit al, bilat eral No observ ation record ed. [address], [address], 01/13/2024 16:34:36 09/28/19 24 09/28/2023 US, liver No observ ation record ed. [email or web address] [facility] [address], [place], [address], 01/13/2024 16:34:37 Result Notes None recorded. Problems Name Problem SNOMED Code Status Onset Date Resolution Date Notes Provider Name and Address Organization Details Recorded Time Rheumatoid arthritis 59681044 Active 2022 Not Available [facility] 3 10:46:56 Diarrhea 72971787 Active 2022 Not Available [facility] 3 10:46:56 Chronic kidney disease 089954292 Active 2022 Not Available [facility] 3 10:46:56 Dizziness 155523928 Active 2022 Not Available [facility] 3 10:46:56 Gastroesophag eal reflux disease without esophagitis 152786363 Active 2022 Not Available [facility] 3 10:46:56 Persistent insomnia 959480793 Active 2022 Not Available [facility] 3 10:46:56 Anemia 776151368 Active 2022 Not Available [facility] 3 10:46:56 Osteopenia 376488141 Active 2022 Not Available [facility] 3 10:46:56 Eruption 533441976 Active 2022 Not Available [facility] 3 10:46:56 Anxiety 89217035 Active 2022 Not Available [facility] 3 10:46:56 Vitamin D deficiency 76446403 Active 2023 Aby marquez MD [address], [place], [address] , [employer] 4 11:38:47 Thrombocytope lewis disorder 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 4 14:48:21 Suture granuloma 12373876 Active 2023 Aby marquez MD [address], [address], [place], [address] , [facility] 4 15:39:28 COVID-19 119254568 Active 2023 ABBY Ordonez null, [place] [facility] 4 11:02:28 Impacted cerumen 57169512 Active 2023 Akil Rodriguez CMA null, [place] [facility] 4 10:28:31 Impacted cerumen 59295741 Active 2023 Akil Rodriguez CMA null, [place] [facility] 4 10:28:56 Acute sinusitis 79218936 Active 2021 Not Available [facility] 3 10:46:56 Gastroesophag eal reflux disease 979867963 Active Not Available [facility] 3 10:46:56 Gastroparesis syndrome 184619031 Active Not Available [facility] 3 10:46:56 Chest pain 40150960 Active Not Available [facility] 3 10:46:56 Ingrowing toenail 106499878 Active Not Available [facility] 3 10:46:56 Hypothyroidis m 77711149 Active Not Available [facility] 3 10:46:56 Dysuria 43251129 Active Not Available [facility] 3 10:46:56 Cough 40644919 Active 2021 Not Available [facility] 3 10:46:56 Upper respiratory infection 48958943 Active 2021 Not Available [facility] 3 10:46:56 Systemic lupus erythematosus 72487262 Active Not Available [facility] 3 10:46:56 Hyperlipidemi a 11597702 Active Not Available [facility] 3 10:46:56 Essential hypertension 03936639 Active Not Available [facility] 3 10:46:56 Neck pain 42133865 Active 2021 Not Available [facility] 3 10:46:56 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 Procedures Surgical History Date Name Laterality Status Provider Name and Address Organization Details Recorded Time 01/05/20 Medicare Wellness CPT Code, subsequent completed Abdi Novak LPN [place] [facility] [employer] [facility] 01/04/2024 09:32:05 01/05/20 Advanced Care Planning completed Abdi Novak LPN [place] [employer] [facility] 01/05/2024 15:13:46 09/29/19 Medicare Wellness CPT Code, subsequent completed Abdi Novak LPN [employer] [facility] 09/28/2023 10:17:44 09/10/19 24 Date of Last Mammogram completed Stephanie Spear MA [facility] [employer] [facility] 09/29/2023 14:25:23 Hysterectomy completed Not Available [facility] 06/03/2022 04:42:01 Gallbladder Surgery completed Not Available [facility] 06/03/2022 04:42:01 Cataract Surgery completed Not Available [facility] 06/03/2022 04:42:01 fundoplication completed Not Available [facility] 06/03/2022 04:42:01 Imaging Results Imaging Date Name Status LastModified by Organiz ation Details LastModified Time 09/10/2023 MAMMO, screening, digital, bilateral completed [address], [address], 01/13/2024 16:34:36 09/28/2023 US, liver completed [address], [address], 01/13/2024 16:34:37 Procedure Notes None recorded. Medical Equipment None Reported. Allergies No known drug allergies Medications Name Sig Start Date Stop Date Status Note LastModified by Organization Details LastModified Time cyclobenz aprine 10 mg tablet TAKE 1 TABLET BY MOUTH TWICE A DAY NEEDED FOR MUSCLE SPASMS MAY CAUSE DROWSINE SS 01/12 completed Not Available Not Available Not Available doxepin 50 mg capsule 1 capsule at bedtime active Not Available Not Available No t Available prednison e 10 mg tablet TAKE 1 TABLET BY MOUTH THREE TIMES A DAY 01/04 completed Not Available Not Available Not Available doxycycli ne hyclate 100 mg capsule TAKE 1 CAPSULE BY MOUTH TWICE A DAY WITH FOOD FOR 14 DAYS 09/28 completed Not Available Not Available Not Available trazodone 50 mg tablet TAKE 1 TABLET BY MOUTH EVERY DAY NEEDED, NO ALCOHOL, DRIVING OR W/ SEDATING MEDS active Not Available Not Available No t Available atorvasta tin 10 mg tablet Take by oral route for 90 days. 01/12 completed pt never started Not Available Not Available Not Available azithromy hermelinda 250 mg tablet TAKE 2 TABLETS BY MOUTH TODAY, THEN TAKE 1 TABLET DAILY FOR 4 DAYS DIRECTED 01/04 completed Not Available Not Available Not Available metoprolo l succinate ER 50 mg tablet,ex tended release 24 hr TAKE 1 TABLET BY MOUTH EVERYDAY AT BEDTIME 07/12 completed Not Available Not Available Not Available clarithro mycin 500 mg tablet active Not Available Not Available No t Available gabapenti n 400 mg capsule Take 1 capsule 4 times a day by oral route for 90 days. 05/27 completed Not Available Not Available Not Available leflunomi de 10 mg tablet TAKE 1 TABLET BY MOUTH EVERY DAY active Not Available Not Available No t Available metronida zole 500 mg tablet active Not Available Not Available No t Available acetamino phen 300 mg-codein e 30 mg tablet 06/08 completed Not Available Not Available Not Available clopidogr el 75 mg tablet TAKE 1 TABLET BY MOUTH EVERY DAY 09/28 completed Not Available Not Available Not Available sulfameth oxazole 800 mg-trimet hoprim 160 mg tablet TAKE ONE TABLET BY MOUTH EVERY 12 HOURS FOR 10 DAYS 01/12 completed Not Available Not Available Not Available omeprazol e 40 mg capsule,d elayed release active Not Available Not Available Not Available leflunomi de 20 mg tablet TAKE 1 TABLET BY MOUTH EVERY DAY active Not Available Not Available No t Available amoxicill in 500 mg tablet TAKE 1 TABLET BY MOUTH THREE TIMES A DAY 01/04 completed Not Available Not Available Not Available levothyro xine 88 mcg tablet TAKE 1 TABLET BY MOUTH EVERY DAY IN THE MORNING ON AN EMPTY STOMACH active Not Available Not Available No t Available alprazola m 0.5 mg tablet TAKE 1 TABLET BY MOUTH 1/2 HOUR PRIOR TO PROCEDUR E, NO DRIVING, ALCOHOL, OR W/ SEDATING MEDS 05/26 completed Not Available Not Available Not Available famotidin e 20 mg tablet Take 1 tablet every day by oral route. 2021 active Not Available Not Available Not Avai lable Fosamax 70 mg tablet Take 1 tablet every week by oral route for 90 days. 01/13 completed Not Available Not Available Not Available methotrex ate sodium 2.5 mg tablet TAKE 7 TABLETS BY MOUTH ONE TIME PER WEEK 07/12 completed Not Available Not Available Not Available benzonata te 100 mg capsule Take 1 capsule twice a day by oral route as needed for 15 days. 07/12 completed Not Available Not Available Not Available prednison e 2.5 mg tablet TAKE 2 OR 3 TABLETS BY MOUTH DAILY NEEDED DIRECTED active Not Available Not Available No t Available cephalexi n 500 mg capsule 01/11 completed Not Available Not Available Not Available pantopraz ole 40 mg tablet,de layed release Take 1 tablet every day by oral route for 90 days. active Not Available Not Available No t Available erythromy hermelinda 5 mg/gram (0.5 %) eye ointment active Not Available Not Available Not Available oseltamiv ir 75 mg capsule Take 1 capsule twice a day by oral route for 5 days. 05/27 completed Not Available Not Available Not Available triamcino lone acetonide 0.1 % topical ointment APPLY THIN LAYER TO AFFECTED AREA ON ABDOMEN TWICE DAILY FOR 2 WEEKS 03/09 completed Not Available Not Available Not Available ranitidin e 150 mg tablet TAKE 1 TABLET EVERY MORNING 08/29 completed Not Available Not Available Not Available cevimelin e 30 mg capsule Take 1 capsule 3 times a day by oral route for 30 days. active Not Available Not Available No t Available hyoscyami ne 0.125 mg sublingua l tablet 1 bid prn 03/09 completed prn Not Available Not Available Not Available docusate sodium 100 mg capsule Take 1 capsule every day by oral route. active Not Available Not Available No t Available folic acid 1 mg tablet TAKE 1 TABLET BY MOUTH EVERY DAY active Not Available Not Available No t Available amoxicill in 250 mg capsule TAKE 1 CAPSULE BY MOUTH EVERY 8 HOURS UNTIL GONE 01/13 completed Not Available Not Available Not Available codeine 10 mg-guaife nesin 100 mg/5 mL oral liquid Take 10 mL 3 times a day by oral route. active Not Available Not Available No t Available mupirocin 2 % topical ointment APPLY TO ABDOMEN 3 TIMES A DAY FOR 10 DAYS 03/09 completed Not Available Not Available Not Available ergocalci ferol (vitamin D2) 1,250 mcg (50,000 unit) capsule q week 08/29 completed Not Available Not Available Not Available Aspir-81 mg tablet,de layed release Take 1 tablet every day by oral route for 90 days. 09/28 completed Not Available Not Available Not Available hydroxych loroquine 200 mg tablet TAKE 2 TABLETS BY MOUTH EVERY DAY active Not Available Not Available No t Available zolpidem 10 mg tablet active Not Available Not Available Not Available methylpre dnisolone 4 mg tablets in a dose pack Take as directed . 07/12 completed Not Available Not Available Not Available Cipro 250 mg tablet Take 1 tablet twice a day by oral route for 6 days. active Not Available Not Available No t Available cefdinir 300 mg capsule 05/27 completed Not Available Not Available Not Available fluticaso ne propionat e 50 mcg/actua tion nasal spray,kat pension K[place]ler 1 spray every day by intranas al route. 11/25 completed Not Available Not Available Not Available doxycycli ne hyclate 100 mg tablet TAKE 1 TABLET BY MOUTH TWICE A DAY FOR 10 DAYS 09/28 completed Not Available Not Available Not Available calcitrio l 0.25 mcg capsule qd 08/29 completed Not Available Not Available Not Available naproxen 500 mg tablet TAKE 1 TABLET BY MOUTH TWICE A DAY 01/12 completed Not Available Not Available Not Available amoxicill in 875 mg-potass ium clavulana te 125 mg tablet Take 1 tablet every 12 hours by oral route for 7 days. 07/12 completed Not Available Not Available Not Available amoxicill in 500 mg-potass ium clavulana te 125 mg tablet TAKE 1 TABLET BY MOUTH EVERY 12 HOURS 05/26 completed Not Available Not Available Not Available Pneumovax -23 25 mcg/0.5 mL injection syringe TO BE ADMINIST ERED BY PHARMACI ST FOR IMMUNIZA TION 01/11 completed Not Available Not Available Not Available Restasis 0.05 % eye drops in a dropperet te INSTILL 1 DROP INTO AFFECTED EYE(S) BY OPHTHALM IC ROUTE EVERY 12 HOURS 10/05 completed Not Available Not Available Not Available Vigamox 0.5 % eye drops active Not Available Not Available Not Available cholestyr amine (with sugar) 4 gram oral powder Take 1 packet hs powder orange 10/05 completed Not Available Not Available Not Available cholestyr amine (with sugar) 4 gram powder for susp in a packet MIX THE CONTENTS OF 1 PACKET INTO LIQUID AND DRINK AT BEDTIME active Not Available Not Available No t Available rosuvasta tin 40 mg tablet TAKE 1 TABLET BY MOUTH EVERY DAY 07/12 completed Not Available Not Available Not Available nitrofura ntoin monohydra te/macroc rystals 100 mg capsule active Not Available Not Available Not Available duloxetin e 30 mg capsule,d elayed release TAKE 1 CAPSULE BY MOUTH TWICE A DAY 01/12 completed Not Available Not Available Not Available duloxetin e 60 mg capsule,d elayed release active Not Available Not Available Not Available solifenac in 10 mg tablet TAKE 1 TABLET BY MOUTH EVERY DAY 03/09 completed Not Available Not Available Not Available eszopiclo ne 1 mg tablet TAKE 1 TABLET DAILY NEEDED. WEAN OFF THE ZOLPIDEM . NO ALCOHOL, DRIVING, OR WITH SEDATING MEDICATI ONS. 03/09 completed Not Available Not Available Not Available Boostrix Tdap 2.5 Lf unit-8 mcg-5 Lf/0.5 mL intramusc ular syringe active Not Available Not Available Not Available chlorhexi dine gluconate 0.12 % mouthwash 01/12 completed Not Available Not Available Not Available Vitamin D3 2,000iu daily 2020 active Not Available Not Available Not Avai lable Calcium 600 + D(3) active Not Available Not Available Not Available Zostavax (PF) 19,400 unit/0.65 mL subcutane ous suspensio n active Not Available Not Available Not Available iron 27 mg iron tablet Take 1 tablet every day by oral route. 2020 active Not Available Not Available Not Avai lable Durezol 0.05 % eye drops active Not Available Not Available No t Available dexlansop razole 60 mg capsule,b iphase delayed release TAKE 1 CAPSULE BY MOUTH EVERYDAY AT BEDTIME NEEDED active Not Available Not Available No t Available GaviLyte- G 236 gram-22.7 4 gram-6.74 gram-5.86 gram oral solution 01/11 completed Not Available Not Available Not Available Myrbetriq 25 mg tablet,ex tended release TAKE 1 TABLET BY MOUTH EVERY DAY 05/26 completed Not Available Not Available Not Available Myrbetriq 50 mg tablet,ex tended release TAKE 1 TABLET BY MOUTH EVERY DAY 05/26 completed Not Available Not Available Not Available Ilevro 0.3 % eye drops,kat pension active Not Available Not Available Not Available Belsomra 20 mg tablet Take 1 tab at bedtime PRN 11/20 completed Not Available Not Available Not Available Xiidra 5 % eye drops in a dropperet te INSTILL ONE DROP INTO BOTH EYES TWICE A DAY DIRECTED active Not Available Not Available No t Available Linzess 72 mcg capsule TAKE 1 CAPSULE BY MOUTH EVERY DAY IN THE MORNING 07/14 completed Not Available Not Available Not Available Actemra ACTPen 162 mg/0.9 mL subcutane ous pen injector active Not Available Not Available Not Available Paxlovid 150 mg-100 mg tablets in a dose pack (Renal Dose) TAKE 1 TABLET OF NIRMATRE LVIR WITH 1 TABLET OF RITONAVI R TOGETHER BY MOUTH TWICE DAILY FOR 5 DAYS 01/04 completed Not Available Not Available Not Available Vitals Date Recorded Body height Body mass index (BMI) Body weight Body temperature Heart rate Systolic blood pressure Diastolic blood pressure Provider Name and Address Organization Details Last Updated DateTime 4 162.56 cm 21.1 kg/m2 42849.8 6 g 97.7 [degF] 78 /min 122 mm[Hg] 64 mm[Hg] Janny Zhou Lalo [place] [facility] [employer] [facility] 4 14:30:51 Date Recorded Body height Body mass index (BMI) Body weight Body temperature Heart rate Oxygen saturation Oxygen saturation in Arterial blood by Pulse oximetry Systolic blood pressure Diastolic blood pressure Provider Name and Address Organization Details Last Updated DateTime 4 162.56 cm 22.7 kg/m2 02665.1 9 g 98.1 [degF] 68 /min 98 % 98 % 130 mm[Hg] 72 mm[Hg] Stephanie Spear MA [facility] [employer] [facility] 4 14:21:45 Date Recorded Body height Body mass index (BMI) Body weight Body temperature Heart rate Systolic blood pressure Diastolic blood pressure Provider Name and Address Organization Details Last Updated DateTime 4 162.56 cm 21.3 kg/m2 96672.4 5 g 97.7 [degF] 72 /min 126 mm[Hg] 78 mm[Hg] Janny Zhou [place]alo [place] [facility] [employer] [facility] 4 14:14:17 Date Recorded Pain severity - 0-10 verbal numeric rating [Score] - Reported Provider Name and Address Organization Details Last Updated DateTime 01/05/2024 6 Abdi Novak LPN [facility] [employer] [facility] 01/05/2024 15:11:48 Date Recorded Body height Body mass index (BMI) Body weight Body temperature Heart rate Systolic blood pressure Diastolic blood pressure Provider Name and Address Organization Details Last Updated DateTime 4 162.56 cm 21.8 kg/m2 17319.2 3 g 97.7 [degF] 68 /min 122 mm[Hg] 70 mm[Hg] Janny Zhou [place] [facility] [employer] [facility] 4 15:58:31 Date Recorded Body height Body mass index (BMI) Body weight Body temperature Heart rate Systolic blood pressure Diastolic blood pressure Provider Name and Address Organization Details Last Updated DateTime 5 162.56 cm 22 kg/m2 29127.8 2 g 97.6 [degF] 66 /min 122 mm[Hg] 70 mm[Hg] Janny Zhou, ABBY [place] [facility] [place] [employer] 5 14:17:49 Social History Question Answer Notes LastModified by Organizat ion Details LastModified Time Tobacco Smoking Status Never Smoker Not Available [employer] 06/03/2022 04:41:45 Do You Have An Advance Directive? No [id number] Information not available 06/03/2022 What Is Your Level Of Alcohol Consumption? None MIGRATION.58872 71516 Information not available 06/03/2022 Are You Blind Or Do You Have Difficulty Seeing? No MIGRATION.09412 29978 Information not available 06/03/2022 Is Blood Transfusion Acceptable In An Emergency? Yes [email or web address] Information not available 01/05/2024 What Is Your Level Of Caffeine Consumption? Heavy MIGRATION.41557 56817 Information not available 06/03/2022 How Much Tobacco Do You Chew? None MIGRATION.46293 70519 Information not available 06/03/2022 In The 14 Days Before Symptom Onset, Have You Had Close Contact With A Laboratory-confir med COVID-19 While That Case Was Ill? No MIGRATION.83324 79589 Information not available 06/03/2022 In The 14 Days Before Symptom Onset, Have You Had Close Contact With A Person Who Is Under Investigation For COVID-19 While That Person Was Ill? No MIGRATION.18560 38279 Information not available 06/03/2022 Are You Currently Employed? No [email or web address] Information not available 01/05/2024 Are You Deaf Or Do You Have Serious Difficulty Hearing? No MIGRATION.43925 [id number] Information not available 06/03/2022 What Type Of Diet Are You Following? REGULAR MIGRATION.42196 13411 Information not available 06/03/2022 Which Illicit Or Recreational Drugs Have You Used? None MIGRATION.14417 35562 Information not available 06/03/2022 What Is The Highest Grade Or Level Of School You Have Completed Or The Highest Degree You Have Received? [id number] MIGRATION.36942 48586 Information not available 06/03/2022 What Is Your Occupation? Retired MIGRATION.32457 17786 Information not available 06/03/2022 How Many Days Of Moderate To Strenuous Exercise, Like A Brisk Walk, Did You Do In The Last 7 Days? 2 [email or web address] Information not available 01/05/2024 On Those Days That You Engage In Moderate To Strenuous Exercise, How Many Minutes, On Average, Do You Exercise? 20 Information not available 01/05/2024 Have There Been Any Changes To Your Family Or Social Situation? No MIGRATION.90716 49856 Information not available 06/03/2022 What Is The Fluoride Status Of Your Home? Unknown MIGRATION.56138 13837 Information not available 06/03/2022 Are There Any Guns Present In Your Home? No MIGRATION.92001 27303 Information not available 06/03/2022 Do You Use Insect Repellent Routinely? Yes MIGRATION.52881 83384 Information not available 06/03/2022 Where Do You Live? [place]House MIGRATION.38314 86141 Information not available 06/03/2022 Presence Of Domestic Violence No Information no t available 01/05/2024 Guns Present In The Home? No [email or web address] Information not available 01/05/2024 Are You Able To Care For Yourself? Yes [email or web address] Information not available 01/05/2024 Are You Blind Or Do Yo Have Difficulty Seeing? No [email or web address] Information not available 01/05/2024 Are You Deaf Or Do You Have Serious Difficulty Hearing? No [email or web address] Information not available 01/05/2024 General Stress Level? Low Information not available 01/05/2024 Live Alone Of With Others? With Others [email or web address] Information not available 01/05/2024 Do You Have A Medical Power Of Landscape Nurseryman? No MIGRATION.07023 91485 Information not available 06/03/2022 What Was The Date Of Your Most Recent Tobacco Screening? 07/12/2024 [email or web address] Information not available 07/12/2024 How Many Children Do You Have? 1 [email or web address] Information not available 01/05/2024 Do You Have Any Pets? No MIGRATION.66801 78413 Information not available 06/03/2022 What Is Your Relationship Status? MIGRATION.23575 20776 Information not available 06/03/2022 Do You Use Your Seat Belt Or Car Seat Routinely? Yes [email or web address] Information not available 01/05/2024 Are You Sexually Active? No [email or web address] Information not available 01/05/2024 Do You Have Smoke And Carbon Monoxide Detectors In Your Home? Yes MIGRATION.87423 79255 Information not available 06/03/2022 Are You Passively Exposed To Smoke? No MIGRATION.35456 90420 Information not available 06/03/2022 Are There Any Smokers In Your House? No MIGRATION.83671 48697 Information not available 06/03/2022 How Much Tobacco Do You Smoke? No MIGRATION.39505 38538 Information not available 06/03/2022 What Types Of Sporting Activities Do You Participate In? None [email or web address] Information not available 01/05/2024 Do You Feel Stressed (tense, Restless, Nervous, Or Anxious, Or Unable To Sleep At Night)? [id number] MIGRATION.63421 91327 Information not available 06/03/2022 Do You Use Any Illicit Or Recreational Drugs? No [email or web address] Information not available 01/05/2024 Do You Use Sunscreen Routinely? No MIGRATION.76881 97932 Information not available 06/03/2022 Has Tobacco Cessation Counseling Been Provided? No N/a MIGRATION.48009 90985 Information not available 06/03/2022 How Many Years Have You Smoked Tobacco? 0 MIGRATION.27314 14359 Information not available 06/03/2022 Have You Recently Traveled Abroad? No MIGRATION.67579 06377 Information not available 06/03/2022 Do You Have Any Dietary Restrictions? No MIGRATION.07965 50185 Information not available 06/03/2022 Do You Or Have You Ever Used Any Other Forms Of Tobacco Or Nicotine? No MIGRATION.83834 47030 Information not available 06/03/2022 Sex: Female Functional Status Question Answer Note LastModified by Organizat ion Details LastModified Time Do you have difficulty walking or climbing stairs? No MIGRATION.[id number] 026 Information not available 06/03/2022 Do you have transportation difficulties? No MIGRATION.[id number] 026 Information not available 06/03/2022 Are you able to walk? YESWOREST MIGRATION.1671773 026 Information not available 06/03/2022 Do you have difficulty doing errands alone? No MIGRATION.5551773 026 Information not available 06/03/2022 Are you able to care for yourself? Yes MIGRATION.7285555 026 Information not available 06/03/2022 Do you have difficulty dressing or bathing? No MIGRATION.2845432 026 Information not available 06/03/2022 What is your exercise level? Occasional MIGRATION.[id number] 026 Information not available 06/03/2022 Mental Status Question Answer Note LastModified by Organizat ion Details LastModified Time Do you have difficulty concentrating, remembering or making decisions? No MIGRATION.[id number] Information not available 06/03/2022 Family History Relationship Description Onset Age of this Age Resolved Age Notes LastModified by Organization Details LastModified Time Paternal Grandfather Diabetes mellitus [id number] Not available 06/03/2022 04:42:09 Maternal Grandmother Diabetes mellitus MIGRATION.261 [id number] Not available 06/03/2022 04:42:09 Maternal Grandmother Heart disease MIGRATION.[id number] Not available 06/03/2022 04:42:09 Father Malignant neoplasm of urinary bladder MIGRATION.327 [id number] Not available 06/03/2022 04:42:09 Medical History Condition Response NERVE DISEASE N BLINDNESS N RHEUMATIC FEVER N KIDNEY STONES N BLADDER PROBLEMS N MRSA N OTHER # 1 N POLIO N LUNG DISEASE/DISORDER N RADIATION / CHEMOTHERAPY N COPD N Other # 2 N BLOOD DISEASES N EAR OR HEARING PROBLEMS N MUMPS N BOWEL PROBLEMS N DEPRESSION (INCLUDING POST ) N STROKE/TIA Y ULCERS N BENIGN PROSTATIC HYPERPLASIA N MEASLES N MYOCARDIAL INFARCTION N OBESITY N GERD/NAUSEA Y ANEURYSM N URINARY/BLADDER/KIDNEY PROBLEMS N CORONARY ARTERY DISEASE (CAD) N ADDICTION CONCERNS N ENDOMETRIOSIS N Impotence N USE OF BLOOD THINNERS N SKIN PROBLEMS N GASTROINTESTINAL DISORDER N PERIPHERAL VASCULAR DISEASE N MUSCLE,JOINT OR BONE PROBLEMS N GASTROINTESTINAL BLEEDING N BLOOD CLOTS N ASTHMA N CATARACTS N ERECTILE DYSFUNCTION N VARICOSITIES N GI PROBLEMS N Low Testosterone N INFERTILITY N AIDS/HIV N CHEMOTHERAPY / RADIATION N LIVER DISEASE N MALE HYPOGONADISM N HYPERTENSION Y Deficiency N TOURETTE'S N ANXIETY DISORDER N BLOOD TRANSFUSION N ANEMIA/BLOOD DISORDER N CHRONIC EAR INFECTIONS N BRONCHITIS N TUBERCULOSIS N GLAUCOMA N FOOT PROBLEM N DIVERTICULITIS N SLEEP APNEA N CHICKENPOX N INFECTIOUS DISEASE N HEART ARRHYTHMIA N PROSTATE N INSOMNIA Y HIGH CHOLESTEROL / HYPERLIPIDEMIA N HYPERTHYROIDISM N EYE PROBLEMS N EDEMA N CHRONIC PAIN SYNDROME N HYPOTHYROIDISM Y CAROTID BLOCKAGE N CONSTIPATION N BACK / NECK PROBLEMS Y ATHEROSCLEROSIS N BREAST PROBLEMS N DIALYSIS N ECZEMA N OSTEOPOROSIS N ARTHRITIS Y APPENDICITIS N DIABETES, TYPE N BAD TEETH N ENT N HEARTBURN / REFLUX Y AUTISM SPECTRUM DISORDER (ASD) N HEPATITIS / LIVER DISEASE N GOUT N SLEEP DISORDER N ALZHEIMER'S DISEASE N Brain Problems N HERPES N DEMENTIA N HEADACHES/MIGRAINES N SEIZURES/EPILEPSY N VASCULAR DISEASE N PACEMAKER N Blood Disorder N DIZZINESS Y HEART DISEASE/HEART PROBLEMS N KIDNEY DISEASE Y MULTIPLE SCLEROSIS N CARDIAC ARRHYTHMIA N CANCER: SPECIFY N ATRIAL FIBRILLATION N Gall Stones N PULMONARY EMBOLISM N AUTOIMMUNE DISEASE N Gynecological History Statement/Question Response How many live births 1 Date of Last Colonoscopy Date of Last Mammogram 09/10/2023 Date of LMP Most Recent Bone Density Current Control Method Hysterectom y Obstetrics History GPAL:G 2 P 0 1 1 1 Type Value Multiple Births 0 Full Term 0 Induced 0 Spontaneous 1 Premature 1 Living 1 Ectopics 0 Total 2 Immunizations Vaccine Type Date Status Note Provider Nam e and Address Organization Details Recorded Time zoster recombinant 3 completed Janny Zhou RMA null, [facility] 05/24/2024 14:54:27 RSV, recombinant, protein subunit RSVpreF, adjuvant reconstituted, 0.5 mL, PF 3 [facility] 14:54:28 Influenza, high-dose, quadrivalent, PF 3 completed Janny Zhou RMA null, [facility] 05/24/2024 14:54:27 COVID-19, mRNA, LNP-S, PF, riya-sucrose, 30 mcg/0.3 mL 3 [facility] 14:54:28 zoster recombinant 4 completed Janny Zhou RMA null, [facility] 05/24/2024 14:54:27 Influenza, high-dose, quadrivalent, PF 0 [facility] 14:54:15 COVID-19, mRNA, LNP-S, PF, 30 mcg/0.3 mL dose 1 completed Janny Zhou RMA null, [facility] 05/24/2024 14:54:15 COVID-19, mRNA, LNP-S, PF, 30 mcg/0.3 mL dose 1 completed Janny Zhou RMA null, [facility] 05/24/2024 14:54:15 Pneumococcal conjugate PCV 13 8 completed Janny Zhou RMA null, [facility] 05/24/2024 14:54:28 zoster live 5 completed Janny Zhou RMA null, [facility] 05/24/2024 14:54:28 Influenza, high-dose, trivalent, PF 7 completed Janny Zhou RMA null, [facility] 05/24/2024 14:54:28 Influenza, high-dose, trivalent, PF 9 completed Janny Zhou RMA null, [facility] 05/24/2024 14:54:28 DTaP, 5 pertussis antigens 8 completed ABBY Ordonez, [facility] 05/24/2024 14:54:28 COVID-19, mRNA, LNP-S, PF, riya-sucrose, 30 mcg/0.3 mL 5 completed Janny Zhou RMA jack, [facility] 05/24/2024 14:54:44 Influenza, split virus, trivalent, preservative 3 completed Janny Zhou RMA null, [facility] 05/24/2024 14:54:15 SARS-COV-2 (COVID-19) vaccine, UNSPECIFIED 1 completed Janny Zhou RMA null, [facility] 05/24/2024 14:54:15 SARS-COV-2 (COVID-19) vaccine, UNSPECIFIED 1 completed Janny Zhou RMA null, [facility] 05/24/2024 14:54:15 zoster live 5 completed Janny Zhou RMA null, [facility] 05/24/2024 14:54:15 Influenza, high-dose, trivalent, PF 0 completed ABBY Ordonez null, [facility] [employer] [facility] 05/24/2024 14:54:15 pneumococcal polysaccharide PPV23 9 completed Janny Zhou RMLalo null, [facility] [employer] [facility] 05/24/2024 14:54:15 Tdap 8 completed Not Available [facility] 06/03/2022 05:03:10 Pneumococcal conjugate PCV 13 8 completed Not Available [facility] 06/03/2022 05:03:10 influenza, unspecified formulation 7 completed Not Available [facility] 06/03/2022 05:03:10 Influenza, high-dose, quadrivalent, PF 2 completed Not Available [facility] 06/03/2022 05:03:10 Influenza, high-dose, quadrivalent, PF 1 completed Not Available [facility] 06/03/2022 05:03:10 Influenza, high-dose, trivalent, PF 8 completed Not Available [facility] 06/03/2022 05:03:10 Influenza, high-dose, trivalent, PF 5 completed Not Available [facility] 06/03/2022 05:03:10 Influenza, high-dose, trivalent, PF 6 completed Not Available [facility] 06/03/2022 05:03:10 Influenza, split virus, quadrivalent, PF 4 completed Not Available [facility] 06/03/2022 05:03:10 Influenza, high-dose, trivalent, PF 4 completed Aby Montalvo MD [address], [place] [address], [place], [address], [facility] [employer] 01/28/2024 22:11:57 Past Encounters Encounter ID Performer Location Encounter Start Date Encounter Closed Date Diagnosis/Indication Diagnosis SNOMED-CT Code Diagnosis ICD10 Code Diagnosis Note [id number] [facility] Internal Med [place] [address] [facility] , [place] [address] 08/12/2020 00:00:00 08/29/2020 18:53:41 [id number] [facility] Internal Med [place] [address] [place] [address] y , [place] [address] 01/13/2021 00:00:00 01/13/2021 14:49:53 [id number] [facility] [place] [address] [place] [address] y , [place] [address] 07/14/2021 00:00:00 07/14/2021 14:52:51 [id number] [facility] Internal Med [place] [address] [place] [address] y , [place] [address] 01/12/2022 00:00:00 01/12/2022 14:53:12 [id number] [facility] Internal Med [place] [address] [place] [address] y , [place] [address] 05/27/2022 00:00:00 05/27/2022 14:32:27 [id number] Aby marquez MD [facility] Internal Med [place] [address] [place] [address] y , [place] [address] 11/25/2022 14:18:13 11/25/2022 14:58:27 Screening - NAD [id number] Z13.9 C-scope: 11/30/18: Dr Bonilla next in 5 years EGD: 12/07/18: Dr Bonilla H pylori neg Mammogram: 05/13/17: [facility]: NegMammogr am: 08/17/18: NegMammogr am: 08/18/2019 : NegMammogr am: 09/27/2020 : NegMammogr am: 12/09/2021 : Neg PAP: Did see Dr Min as per her history and next in 11/2020 DEXA: 05/14/17: OP, off the fosamaxIs on calcium and vit DDEXA: 09/27/2019 : OP, get back on fosamax, on saskia and vit dDEXA: 12/09/2021 : OP, did not want prolia, see case UTD at flu shot 12/18/2019 UTD on shingles 02/08/15UT D on Tdap 12/14/17UT D pneumovax #13 12/07/17, #23 12/28/18UT D COVID 19 vaccine RTC in 6 monthsDo Siobhan gomez and her verbalized their understand ing of the above Neck pain 33509822 M54.2 XR c-spine 07/14/2021 : Jeremías well now Rheumatoid arthritis 698 [address] Davis as she has retired, does not want to see any rheum and she wants her meds sent by this office, advised her that this can be done but if any symptoms change she will have to see a rheumatolo gist On cevimeline Does well Hypothyroidism 35768890 E03.9 On synthroid 88mcgs daily Does wellGet labs Essential hypertension 47757302 I10 On ASAOn metoprolol ER 50mg daily Does well Diarrhea 37284908 R19.7 On cholestyra mine Does well on this Chronic ki dney disease 629302126 N18.9 Dr Franco 12/23/2021 Dizziness 818881553 R42 OV 05/18/18:S he declines any referral to the ER or to cardiology today, states that she has to take her mother for an appointmen t, explained concern for CVS or CIGAR HEAD STRINGER symptoms and risks Will refer to cardiology and will see Dr Delgadillo tomorrow EKG today 05/18/18: NSR, no obvious STT changes Go to ER if any symptoms worsen, she and her did verbalize her understand ing of the above Seen [facility] Dr Delgadillo 05/19/18, no more apts with Dr Delgadillo Does well, no complaints Gastroesop hageal reflux disease without esophagitis 569371977 K21.9 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, this caused her to get diarrhea S/p EGD done by Dr Bonilla On dexilant Take as needed d/t her CKD Persistent insomnia 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 On zolpidem 10mg daily, wants to stop this, will wean off Get on trazodone, all side effects explained to Gilda tijerina OV 05/27/2022 :On zolpidem 10mg daily Osteopenia 528753583 M85 .80 Does wellNot taking the fosamax Anemia 202947160 D64.9 On iron, repeat the labs History of transient ischemic attack 995692551 Z86.73 On ASAOn plavixDoes wellNo complaints now Vitamin D deficiency 347 01905 E55.9 [id number] Aby marquez MD [facility] [place] [address] [facility] [place] [address] 05/26/2023 14:03:57 05/26/2023 14:52:37 Vitamin D deficiency 83120729 E55.9 Screening - NAD 79056969 3 Z13.9 C-scope: 11/30/18: Dr Bonilla next in 5 years EGD: 12/07/18: Dr Bonilla H pylori neg Mammogram: 05/13/17: [facility]: NegMammogr am: 08/17/18: NegMammogr am: 08/18/2019 : NegMammogr am: 09/27/2020 : NegMammogr am: 12/09/2021 : Neg PAP: Did see Dr Min as per her history and next in 11/2020 DEXA: 05/14/17: OP, off the fosamaxIs on calcium and vit DDEXA: 09/27/2019 : OP, get back on fosamax, on saskia and vit dDEXA: 12/09/2021 : OP, did not want prolia, see case UTD at flu shot 12/18/2019 UTD on shingles 02/08/15UT D on Tdap 12/14/17UT D pneumovax #13 12/07/17, #23 12/28/18UT D COVID 19 vaccineCan do RSV vaccine RTC in 6 monthsDo labsER if worseshe and her verbalized their understand ing of the above Neck pain 81808880 M54.2 XR c-spine 07/14/2021 : DJDDoes well now Rheumatoid arthritis 698 [address]06[address] Davis as she has retired, does not want to see any rheum and she wants her meds sent by this office, advised her that this can be done but if any symptoms change she will have to see a rheumatolo gist On actemra, feels that this has helped her headachesO n cevimeline On prednisone Does well MRI Brain 01/07/2023 Dr Hope Hypothyroidism 51907753 E03.9 On synthroid 88mcgs daily Does wellGet labs Essential hypertension 37881707 I10 On ASAOn metoprolol ER 50mg daily Does well Diarrhea 94291497 R19.7 On cholestyra mine Does well on this Chronic ki dney disease 317258691 N18.9 Dr Franco 12/23/2021 Dizziness 938331452 R42 OV 05/18/18:S he declines any referral to the ER or to cardiology today, states that she has to take her mother for an appointmen t, explained concern for CVS or CIGAR HEAD STRINGER symptoms and risks Will refer to cardiology and will see Dr Delgadillo tomorrow EKG today 05/18/18: NSR, no obvious STT changes Go to ER if any symptoms worsen, she and her did verbalize her understand ing of the above Seen [facility] Dr Delgadillo 05/19/18, no more apts with Dr Delgadillo Does well, no complaints Gastroesop hageal reflux disease without esophagitis 180836306 K21.9 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, this caused her to get diarrhea S/p EGD done by Dr Bonilla On dexilant Take as needed d/t her CKD Persistent insomnia 1919 37555 G47.09 On zolpidem 10mg daily, wants to stop this, will wean off Get on trazodone, all side effects explained to Gilda well OV 05/27/2022 :On zolpidem 10mg daily OV 05/26/2023 : On zolpidem, does well Osteopenia 973505902 M85 .80 Does wellNot taking the fosamax Anemia 412660905 D64.9 On iron, repeat the labs History of transient ischemic attack 963556722 Z86.73 On ASAOn plavixDoes wellNo complaints now, declines any referrals at this time 05/26/2023 Screening mammography 24 413814 Z12.31 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 Repeat the labsMay need to see hematology Increased liver function 49027115 R94.5 [id number] Aby marquez MD [facility] [place] [address] [facility] [place] [address] 09/29/2023 14:13:26 09/29/2023 15:42:29 Vitamin D deficiency 75565211 E55.9 Screening - NAD 59247486 3 Z13.9 C-scope: 11/30/18: Dr Bonilla next in 5 years, referred 09/29/2023 EGD: 12/07/18: Dr Bonilla H pylori neg Mammogram: 05/13/17: [facility]: NegMammogr am: 08/17/18: NegMammogr am: 08/18/2019 : NegMammogr am: 09/27/2020 : NegMammogr am: 12/09/2021 : Neg PAP: Did see Dr Min as per her history and next in 11/2020 DEXA: 05/14/17: OP, off the fosamaxIs on calcium and vit DDEXA: 09/27/2019 : OP, get back on fosamax, on saskia and vit dDEXA: 12/09/2021 : OP, did not want prolia, see case UTD at flu shot 12/18/2019 UTD on shingles 02/08/15UT D on Tdap 12/14/17UT D pneumovax #13 12/07/17, #23 12/28/18UT D COVID 19 vaccineCan do RSV vaccine RTC in 6 monthsDo labsER if worseshe and her verbalized their understand ing of the above Neck pain 32397756 M54.2 XR c-spine 07/14/2021 : DJDDoes well now Rheumatoid arthritis 698 [address]06[address] Davis as she has retired, does not want to see any rheum and she wants her meds sent by this office, advised her that this can be done but if any symptoms change she will have to see a rheumatolo gist On actemra, feels that this has helped her headachesO n cevimeline On prednisone Does well MRI Brain 01/07/2023 Dr Hope, will keep her apt with her Hypothyroidism 20538043 E03.9 On synthroid 88mcgs daily Does wellGet labs Essential hypertension 68059748 I10 On ASAOn metoprolol ER 50mg daily Does well Diarrhea 62053107 R19.7 On cholestyra mineDoes well on this Chronic ki dney disease 563311523 N18.9 Dr Franco 12/23/2021 Dizziness 397355699 R42 OV 05/18/18:S he declines any referral to the ER or to cardiology today, states that she has to take her mother for an appointmen t, explained concern for CVS or CIGAR HEAD STRINGER symptoms and risks Will refer to cardiology and will see Dr Delgadillo tomorrow EKG today 05/18/18: NSR, no obvious STT changes Go to ER if any symptoms worsen, she and her did verbalize her understand ing of the above Seen [facility] Dr Delgadillo 05/19/18, no more apts with Dr Delgadillo Does well, no complaints Gastroesop hageal reflux disease without esophagitis 849984740 K21.9 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, this caused her to get diarrhea S/p EGD done by Dr Bonilla On dexilant Take as needed d/t her CKD Persistent insomnia 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 G47.09 Used to be on trazodoneO n zolpidem 10mg daily, does well Osteopenia 964945001 M85 .80 Does wellNot taking the fosamax Anemia 006456928 D64.9 On iron, repeat the labs History of transient ischemic attack 069328737 Z86.73 On ASANot taking plavixDoes wellNo complaints now, declines any referrals at this time 05/26/2023 Screening mammography 24 905007 Z12.31 Thrombocyt openic disorder 797329400 D69.6 Repeat the labsMay need to see hematology , declinesSt ates that she has stopped the ASA and plavix Increased liver function 81530384 R94.5 US liver 09/28/2023 : NegGGT: 09/14/2023 : 32Hepatiti s panel: NegOli decrease the statin to every other day 09/29/2023 Urinary incontinence 165 234925 R32 On solifenaci n 10mg dailyDoes well on this Screening for malignant neoplasm of colon 414132069 Z12.11 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 S/p Dr Chavez 08/09/2023 , does well now [id number] Aby marquez MD [facility] [place] [address] [facility] [place] [address] 01/05/2024 13:56:22 01/05/2024 15:09:44 Adult health examination 730072827 Z00.00 Screening for disorder 350823274 Z13.9 Vitamin D deficiency 347 86013 E55.9 Screening - NAD 76068643 3 Z13.9 C-scope: 11/30/18: Dr Bonilla next in 5 years, referred 09/29/2023 EGD: 12/07/18: Dr Bonilla H pylori neg Mammogram: 05/13/17: [facility]: NegMammogr am: 08/17/18: NegMammogr am: 08/18/2019 : NegMammogr am: 09/27/2020 : NegMammogr am: 12/09/2021 : NegMammogr am: 09/10/2023 : Neg PAP: Did see Dr Min as per her history and next in 11/2020 DEXA: 05/14/17: OP, off the fosamaxIs on calcium and vit DDEXA: 09/27/2019 : OP, get back on fosamax, on saskia and vit dDEXA: 12/09/2021 : OP, did not want prolia, see case UTD at flu shot 12/18/2019 UTD on shingles 02/08/15UT D on Tdap 12/14/17UT D pneumovax #13 12/07/17, #23 12/28/18UT D COVID 19 vaccineCan do RSV vaccine RTC in 6 monthsDo labsER if worseshe and her verbalized their understand ing of the above Neck pain 25718787 M54.2 XR c-spine 07/14/2021 : DJDDoes well nowRefer to IPC 01/05/2024 Rheumatoid arthritis 698 [address]06[address] Davis as she has retired, does not want to see any rheum and she wants her meds sent by this office, advised her that this can be done but if any symptoms change she will have to see a rheumatolo gist On actemra, feels that this has helped her headachesO n cevimeline On prednisone Does well MRI Brain 01/07/2023 Dr Hope, will keep her apt with her Hypothyroidism 89503982 E03.9 On synthroid 88mcgs daily Does wellGet labs Essential hypertension 92664791 I10 On ASAOn metoprolol ER 50mg daily Does well Diarrhea 83723053 R19.7 On cholestyra mineDoes well on this Chronic ki dney disease 106398116 N18.9 Dr Franco 12/23/2021 Dizziness 894764221 R42 OV 05/18/18:S he declines any referral to the ER or to cardiology today, states that she has to take her mother for an appointmen t, explained concern for CVS or CIGAR HEAD STRINGER symptoms and risks Will refer to cardiology and will see Dr Delgadillo tomorrow EKG today 05/18/18: NSR, no obvious STT changes Go to ER if any symptoms worsen, she and her did verbalize her understand ing of the above Seen [facility] Dr Delgadillo 05/19/18, no more apts with Dr Delgadillo Does well, no complaints Gastroesop hageal reflux disease without esophagitis 988492729 K21.9 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, this caused her to get diarrhea S/p EGD done by Dr Bonilla On dexilant Take as needed d/t her CKD Persistent insomnia 1919 22600 G47.09 Used to be on trazodoneO n zolpidem 10mg dailyWill wean off and d/c zolpidem and get on lunesta 01/05/2024 , all side effects explained Osteopenia 993208013 M85 .80 Does wellNot taking the fosamax Anemia 979624946 D64.9 On iron, repeat the labs History of transient ischemic attack 818330282 Z86.73 On ASANot taking plavixDoes wellNo complaints now, declines any referrals at this time 05/26/2023 Thrombocyt openic disorder 696806529 D69.6 Repeat the labsMay need to see hematology , declinesSt ates that she has stopped the ASA and plavix Increased liver function 42959584 R94.5 US liver 09/28/2023 : NegGGT: 09/14/2023 : 32Hepatiti lee ann panel: NegOli decrease the statin to every other day 09/29/2023 Urinary incontinence 165 176023 R32 On solifenaci n 10mg daily, given by Dr Durbin s well on this Screening for malignant neoplasm of colon 589936043 Z12.11 Suture granuloma 4682325 8 L92.8 S/p Dr Chavez 08/09/2023 , does well now Screening for osteoporosis 669468632 Z13.820 Administra tion of influenza vaccine 51416640 Z23 [id number] Aby marquez MD [facility] Internal Med [facility] [address] [facility], [facility] [address] [place] [address] 03/09/2024 15:44:52 03/09/2024 16:34:23 Upper respiratory infection 29847147 J06.9 Get tested for COVID 19, strep and fluGet on tessalon perles as neededGet on augmentin, all side effects explained, rest, hydrate, ER if worseShe and her did verbalize her understand ing of the above Persistent insomnia 1919 24915 G47.09 Used to be on trazodoneO n zolpidem 10mg dailyWill wean off and d/c zolpidem and get on lunesta 01/05/2024 , all side effects explained OV 03/09/2024 : States that the lunesta did not help, wants to revert back to the ambien, sent this today [id number] Aby marquez MD [facility] [address] [facility] [address] [place] [address] 07/12/2024 14:02:03 07/12/2024 14:51:26 Vitamin D deficiency 72104670 E55.9 Screening - NAD 83989488 3 Z13.9 C-scope: 11/30/18: Dr Bonilla next in 5 years, referred 09/29/2023 EGD: 12/07/18: Dr Bonilla H pylori neg Mammogram: 05/13/17: [facility]: NegMammogr am: 08/17/18: NegMammogr am: 08/18/2019 : NegMammogr am: 09/27/2020 : NegMammogr am: 12/09/2021 : NegMammogr am: 09/10/2023 : Neg PAP: Did see Dr Min as per her history and next in 11/2020 DEXA: 05/14/17: OP, off the fosamaxIs on calcium and vit DDEXA: 09/27/2019 : OP, get back on fosamax, on saskia and vit dDEXA: 12/09/2021 : OP, did not want prolia, see case UTD at flu shot 12/18/2019 UTD on shingles 02/08/15UT D on Tdap 12/14/17UT D pneumovax #13 12/07/17, #23 12/28/18UT D COVID 19 vaccineCan do RSV vaccine RTC in 6 monthsDo labsER if worseshe and her verbalized their understand ing of the above Neck pain 11022883 M54.2 XR c-spine 07/14/2021 : DJDDoes well nowRefer to IPC 01/05/2024 Rheumatoid arthritis 698 [address]06[address] Davis as she has retired, does not want to see any rheum and she wants her meds sent by this office, advised her that this can be done but if any symptoms change she will have to see a rheumatolo gist On actemra, feels that this has helped her headachesO n cevimeline On prednisone Does well MRI Brain 01/07/2023 Dr Hope, will keep her apt with her Hypothyroidism 33236650 E03.9 On synthroid 88mcgs daily Does wellGet labs Essential hypertension 39114203 I10 On ASAOn metoprolol ER 50mg daily Does well Diarrhea 01776889 R19.7 On cholestyra mineDoes well on this Chronic ki dney disease 744689008 N18.9 Dr Franco 12/23/2021 Dizziness 916945785 R42 OV 05/18/18:S he declines any referral to the ER or to cardiology today, states that she has to take her mother for an appointmen t, explained concern for CVS or CIGAR HEAD STRINGER symptoms and risks Will refer to cardiology and will see Dr Delgadillo tomorrow EKG today 05/18/18: NSR, no obvious STT changes Go to ER if any symptoms worsen, she and her did verbalize her understand ing of the above Seen [facility] Dr Delgadillo 05/19/18, no more apts with Dr Delgadillo Does well, no complaints Gastroesop hageal reflux disease without esophagitis 265640811 K21.9 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, this caused her to get diarrhea S/p EGD done by Dr Bonilla On dexilant Take as needed d/t her CKD Persistent insomnia 1919 13936 G47.09 Used to be on trazodoneO n zolpidem 10mg dailyWill wean off and d/c zolpidem and get on lunesta 01/05/2024 , all side effects explained OV 07/12/2024 : Now back on zolpidem Osteopenia 776438050 M85 .80 Does wellNot taking the fosamax Anemia 015703706 D64.9 On iron, repeat the labs History of transient ischemic attack 223900552 Z86.73 On ASANot taking plavixDoes wellNo complaints now, declines any referrals at this time 05/26/2023 Thrombocyt openic disorder 204475841 D69.6 Repeat the labsMay need to see hematology , declinesSt ates that she has stopped the ASA and plavix Increased liver function 66517593 R94.5 US liver 09/28/2023 : NegGGT: 09/14/2023 : 32Hepatiti s panel: Arnoldo decrease the statin to every other day 09/29/2023 Urinary incontinence 165 091834 R32 Not on solifenaci n 10mg daily, given by Dr Durbin s well on this Screening for malignant neoplasm of colon 145268647 Z12.11 Suture granuloma 4643018 8 L92.8 S/p Dr Chavez 08/09/2023 , does well now Screening mammography 24 632308 Z12.31 Postmenopausal state 764 54147 Z78.0 Health Concerns Section Related Observation LastModified by Organization Detai ls LastModified Time None Recorded Concern Status LastModified by Organization Details LastModified Time None Recorded Advance Directives Directive N: Payers Encounter Date Sequence Insurance Name Policy Number Policy Reed Covered Member ID Reed Member ID Guarantor Name 05/26/2023 1 [place] Carole Jaime Preston [id number] 1 Carole Jaime Preston 05/26/2023 2 [facility]ENEF[facility] (PPO) Carlos Jaime Preston [id number] Carole Jaime Preston 09/29/2023 1 [place] Carole Jaime Preston [id number] 1 Carole Jaime Preston 09/29/2023 2 [employer] - [facility] HEALTH BENEFITS PLAN (PPO) Carlos Jaime Preston [id number] Carole Jaime Preston 01/05/2024 1 [place] Carole Jaime Preston [id number] 1 Carole Jaime Preston 01/05/2024 2 [employer] [facility] [place] [facility] [employer]ENEFITS PLAN (PPO) Carlos Jaime Preston [id number] Carole Jaime Preston 03/09/2024 1 [place] Carole Jaime Preston [id number] 1 Carole Jaime Preston 03/09/2024 2 [employer] [place] [employer] BENEFITS PLAN (PPO) Carlos Jaime Preston [id number] Carole Jaime Preston 07/12/2024 1 [place] Carole Jaime Preston [id number] 1 Carole Jaime Preston Notes Date Note Type Note Provider Name and Address Organization Details Recorded Time 05/26/2023 text/html Here to blanca Garzon Hx:HTNGERDRAReviewed social family and surgical historySe[facility] Dr [facility] and she did see Eloina WALTER alsoOV 06/08/17:Here with her husbandShe is doing well, she did do the DEXA and mammogramNo new labs at this timeOV 10/05/17:Here with her husbandShe states that she is doing well at this timeNo recent labsLast labs were on 06/11/17OV 01/11/18:Here with her husbandShe states that she is doing wellShe did do the labs on 12/14/17OV 05/18/18:Here with her husbandShe states that she has been feeling dizzyno SOB, no JOHNSTON, no palpitation, no headaches, no N/VNo LOCShe does have some mid sternal discomfort which lasts for 'seconds' with the dizzy spellNo chest pain or radiation to the neck or L or R armNo stabbing chest painHas LBP, but this is chronicShe denies any dizziness or chest pain todayOV 07/12/18:Here for her routine aptShe feels 'great' here with her husbandShe did do the labs on 06/22/18, does not want to see nephrology at this timeShe also needs to do her mammogram and her c-scopeOV 01/11/19:Here for her routine aptShe states that she did do the labsShe feels well todayShe is here with her husbandOV 08/30/2019:Here for her routine aptShe is doing very wellShe states that she has not done any labs d/t the COVID 19 pandemic but is ready to do them nowShe is here with her MelchorKavin 02/15/2020:Tele visit, she is agreeable to do this visitURI:C/o fevers and cough since 02/10/2020Still has some coughNo feversNo chillsNo blood in sputum, some SOBNo wheezingNo blood in urine or stoolNo diarrheaNo rashesHer extensive ROS was otherwise negativeShe is also wanting this visit to discuss her labsOV 08/29/2020:Here for her routine aptShe is doing wellShe did do the labsShe is here with her husbandOV 01/13/2021:Here for her routine aptShe is doing wellShe is here with her husbandOV 07/14/2021:Here for her routine aptShe feels wellHere with husbandShe did do the labs on 2OV 01/12/2022:Here for her f/u apt, she is here with her , is doing very well, wants to do her flu shotShe did see Dr Hope and Dr Kitchen 05/27/2022:Here for her f/u apt, she is doing wellShe did do the labs on 05/14/2022 OV 11/25/2022:Here for her f/u apt, she did do the labs OV 05/26/2023: Here for her f/u apt, she did do the labs with Dr Hope, has noted some tenderness on the old surgical scar but states that it is better now with applying some hydrocortisone cream Aby Montalvo MD [address] [facility], [place], [address], [facility] [employer] 05/26/2023 15:03:36 09/29/2023 text/html Here to blanca winnDandre Hx:HTNGERDRAReviewed social family and surgical historySees Dr [facility] in [facility] for her RA and she did see Eloina [employer] 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[employer]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 alsoOV 06/08/17:Here with her husbandShe is doing well, she did do the DEXA and mammogramNo new labs at this timeOV 10/05/17:Here with her husbandShe states that she is doing well at this timeNo recent labsLast labs were on 06/11/17OV 01/11/18:Here with her husbandShe states that she is doing wellShe did do the labs on 12/14/17OV 05/18/18:Here with her husbandShe states that she has been feeling dizzyno SOB, no JOHNSTON, no palpitation, no headaches, no N/VNo LOCShe does have some mid sternal discomfort which lasts for 'seconds' with the dizzy spellNo chest pain or radiation to the neck or L or R armNo stabbing chest painHas LBP, but this is chronicShe denies any dizziness or chest pain todayOV 07/12/18:Here for her routine aptShe feels 'great' here with her husbandShe did do the labs on 06/22/18, does not want to see nephrology at this timeShe also needs to do her mammogram and her c-scopeOV 01/11/19:Here for her routine aptShe states that she did do the labsShe feels well todayShe is here with her husbandOV 08/30/2019:Here for her routine aptShe is doing very wellShe states that she has not done any labs d/t the COVID 19 pandemic but is ready to do them nowShe is here with her Carrie 02/15/2020:Tele visit, she is agreeable to do this visitURI:C/o fevers and cough since 02/10/2020Still has some coughNo feversNo chillsNo blood in sputum, some SOBNo wheezingNo blood in urine or stoolNo diarrheaNo rashesHer extensive ROS was otherwise negativeShe is also wanting this visit to discuss her labsOV 08/29/2020:Here for her routine aptShe is doing wellShe did do the labsShe is here with her husbandOV 01/13/2021:Here for her routine aptShe is doing wellShe is here with her husbandOV 07/14/2021:Here for her routine aptShe feels wellHere with husbandShe did do the labs on 2OV 01/12/2022:Here for her f/u apt, she is here with her , is doing very well, wants to do her flu shotShe did see Dr Hope and Dr Kitchen 05/27/2022:Here for her f/u apt, she is doing wellShe did do the labs on 05/14/2022 OV 11/25/2022:Here for her f/u apt, she did do the labs OV 05/26/2023: Here for her f/u apt, she did do the labs with Dr Hope, has noted some tenderness on the old surgical scar but states that it is better now with applying some hydrocortisone cream OV 09/29/2023: Here for her f/u apt, she is here with her , is doing well today, has seen dermatology and was told 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, now does well Aby Montalvo MD [address] [facility], [facility] [address], [place], [address], [place] [facility] [employer] 09/29/2023 15:41:16 01/05/2024 text/html Here to blanca Garzon Hx:HTNGERDRAReviewed social family and surgical historySees Dr Davis in [facility] for her RA and she did see Eloina WALTER alsoOV 06/08/17:Here with her husbandShe is doing well, she did do the DEXA and mammogramNo new labs at this timeOV 10/05/17:Here with her husbandShe states that she is doing well at this timeNo recent labsLast labs were on 06/11/17OV 01/11/18:Here with her husbandShe states that she is doing wellShe did do the labs on 12/14/17OV 05/18/18:Here with her husbandShe states that she has been feeling dizzyno SOB, no JOHNSTON, no palpitation, no headaches, no N/VNo LOCShe does have some mid sternal discomfort which lasts for 'seconds' with the dizzy spellNo chest pain or radiation to the neck or L or R armNo stabbing chest painHas LBP, but this is chronicShe denies any dizziness or chest pain todayOV 07/12/18:Here for her routine aptShe feels 'great' here with her husbandShe did do the labs on 06/22/18, does not want to see nephrology at this timeShe also needs to do her mammogram and her c-scopeOV 01/11/19:Here for her routine aptShe states that she did do the labsShe feels well todayShe is here with her husbandOV 08/30/2019:Here for her routine aptShe is doing very wellShe states that she has not done any labs d/t the COVID 19 pandemic but is ready to do them nowShe is here with her MelchorKavin 02/15/2020:Tele visit, she is agreeable to do this visitURI:C/o fevers and cough since 02/10/2020Still has some coughNo feversNo chillsNo blood in sputum, some SOBNo wheezingNo blood in urine or stoolNo diarrheaNo rashesHer extensive ROS was otherwise negativeShe is also wanting this visit to discuss her labsOV 08/29/2020:Here for her routine aptShe is doing wellShe did do the labsShe is here with her husbandOV 01/13/2021:Here for her routine aptShe is doing wellShe is here with her husbandOV 07/14/2021:Here for her routine aptShe feels wellHere with husbandShe did do the labs on 2OV 01/12/2022:Here for her f/u apt, she is here with her , is doing very well, wants to do her flu shotShe did see Dr Hope and Dr Kitchen 05/27/2022:Here for her f/u apt, she is doing wellShe did do the labs on 05/14/2022 OV 11/25/2022:Here for her f/u apt, she did do the labs OV 05/26/2023: Here for her f/u apt, she did do the labs with Dr Hope, has noted some tenderness on the old surgical scar but states that it is better now with applying some hydrocortisone cream OV 09/29/2023: Here for her f/u apt, she is here with her , is doing well today, has seen dermatology and was told 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, now does well 01/05/2024: Here for her f/u apt, she is doing well today, she is here with her Carlos Montalvo MD [address] [place] [address], [facility] [address], [address], [facility] [employer] 01/28/2024 22:14:29 03/09/2024 text/html Here to blanca Garzon Hx:HTNGERDRAReviewed social family and surgical historySe[facility] Dr [facility] and she did see Eloina WALTER alsoOV 06/08/17:Here with her husbandShe is doing well, she did do the DEXA and mammogramNo new labs at this timeOV 10/05/17:Here with her husbandShe states that she is doing well at this timeNo recent labsLast labs were on 06/11/17OV 01/11/18:Here with her husbandShe states that she is doing wellShe did do the labs on 12/14/17OV 05/18/18:Here with her husbandShe states that she has been feeling dizzyno SOB, no JOHNSTON, no palpitation, no headaches, no N/VNo LOCShe does have some mid sternal discomfort which lasts for 'seconds' with the dizzy spellNo chest pain or radiation to the neck or L or R armNo stabbing chest painHas LBP, but this is chronicShe denies any dizziness or chest pain todayOV 07/12/18:Here for her routine aptShe feels 'great' here with her husbandShe did do the labs on 06/22/18, does not want to see nephrology at this timeShe also needs to do her mammogram and her c-scopeOV 01/11/19:Here for her routine aptShe states that she did do the labsShe feels well todayShe is here with her husbandOV 08/30/2019:Here for her routine aptShe is doing very wellShe states that she has not done any labs d/t the COVID 19 pandemic but is ready to do them nowShe is here with her OliverioMichelleV 02/15/2020:Tele visit, she is agreeable to do this visitURI:C/o fevers and cough since 02/10/2020Still has some coughNo feversNo chillsNo blood in sputum, some SOBNo wheezingNo blood in urine or stoolNo diarrheaNo rashesHer extensive ROS was otherwise negativeShe is also wanting this visit to discuss her labsOV 08/29/2020:Here for her routine aptShe is doing wellShe did do the labsShe is here with her husbandOV 01/13/2021:Here for her routine aptShe is doing wellShe is here with her husbandOV 07/14/2021:Here for her routine aptShe feels wellHere with husbandShe did do the labs on 2OV 01/12/2022:Here for her f/u apt, she is here with her , is doing very well, wants to do her flu shotShe did see Dr Hope and Dr Kitchen 05/27/2022:Here for her f/u apt, she is doing wellShe did do the labs on 05/14/2022 OV 11/25/2022:Here for her f/u apt, she did do the labs OV 05/26/2023: Here for her f/u apt, she did do the labs with Dr Hope, has noted some tenderness on the old surgical scar but states that it is better now with applying some hydrocortisone cream OV 09/29/2023: Here for her f/u apt, she is here with her , is doing well today, has seen dermatology and was told 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, now does well 01/05/2024: Here for her f/u apt, she is doing well today, she is here with her Carlos OV 03/09/2024: Here for ACV:C/o URI sx, c/o cough, feeling feverish, non productive, no blood in sputum, no chest pain or SOB, no wheezingStates that her grandchild was sick and she got sick from the grand child, here with her who has similar symptomsShe would also like to stop the lunesta and take back the ambien as the lunesta did not help her sleep she even took 2 pills but this did not help Aby Montalvo MD [address] [facility], [facility] [address], [place], [address], [facility] 03/09/2024 16:42:27 07/12/2024 text/html Here to blanca Garzon Hx:HTNGERDRAReviewed social family and surgical historySees Dr Davis in [facility] for her RA and she did see Eloina WALTER alsoOV 06/08/17:Here with her husbandShe is doing well, she did do the DEXA and mammogramNo new labs at this timeOV 10/05/17:Here with her husbandShe states that she is doing well at this timeNo recent labsLast labs were on 06/11/17OV 01/11/18:Here with her husbandShe states that she is doing wellShe did do the labs on 12/14/17OV 05/18/18:Here with her husbandShe states that she has been feeling dizzyno SOB, no JOHNSTON, no palpitation, no headaches, no N/VNo LOCShe does have some mid sternal discomfort which lasts for 'seconds' with the dizzy spellNo chest pain or radiation to the neck or L or R armNo stabbing chest painHas LBP, but this is chronicShe denies any dizziness or chest pain todayOV 07/12/18:Here for her routine aptShe feels 'great' here with her husbandShe did do the labs on 06/22/18, does not want to see nephrology at this timeShe also needs to do her mammogram and her c-scopeOV 01/11/19:Here for her routine aptShe states that she did do the labsShe feels well todayShe is here with her husbandOV 08/30/2019:Here for her routine aptShe is doing very wellShe states that she has not done any labs d/t the COVID 19 pandemic but is ready to do them nowShe is here with her Carrie 02/15/2020:Tele visit, she is agreeable to do this visitURI:C/o fevers and cough since 02/10/2020Still has some coughNo feversNo chillsNo blood in sputum, some SOBNo wheezingNo blood in urine or stoolNo diarrheaNo rashesHer extensive ROS was otherwise negativeShe is also wanting this visit to discuss her labsOV 08/29/2020:Here for her routine aptShe is doing wellShe did do the labsShe is here with her husbandOV 01/13/2021:Here for her routine aptShe is doing wellShe is here with her husbandOV 07/14/2021:Here for her routine aptShe feels wellHere with husbandShe did do the labs on 2OV 01/12/2022:Here for her f/u apt, she is here with her , is doing very well, wants to do her flu shotShe did see Dr Hope and Dr Kitchen 05/27/2022:Here for her f/u apt, she is doing wellShe did do the labs on 05/14/2022 OV 11/25/2022:Here for her f/u apt, she did do the labs OV 05/26/2023: Here for her f/u apt, she did do the labs with Dr Hope, has noted some tenderness on the old surgical scar but states that it is better now with applying some hydrocortisone cream OV 09/29/2023: Here for her f/u apt, she is here with her , is doing well today, has seen dermatology and was told 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, now does well 01/05/2024: Here for her f/u apt, she is doing well today, she is here with her Carlos OV 03/09/2024: Here for ACV:C/o URI sx, c/o cough, feeling feverish, non productive, no blood in sputum, no chest pain or SOB, no wheezingStates that her grandchild was sick and she got sick from the grand child, here with her who has similar symptomsShe would also like to stop the lunesta and take back the ambien as the lunesta did not help her sleep she even took 2 pills but this did not help OV 07/12/2024: Here for her f/u apt, she is here with her , does well Aby Montalvo MD [address], [facility] [address], [place], [address], [facility] 07/12/2024 18:31:06 OBGyn Episode No OBEpisode recorded.
--- OUTSIDE RECORDS SUMMARY | 2024-07-20 15:16 | XMS_ITS | CONTINUITY OF CARE DOCUMENT ---
Author Name sophie barrios Address Unknown Organization [facility] Address [address] [place] [address] Phone [phone] Care Team Providers Care District Resource Officer Name Role Phone Hector Delgadillo MD Unavailable XENIA MENENDEZ MD Unavailable XENIA MENENDEZ MD Unavailable PROBLEMS Condition Status Date Provider Notes Chest pain active Hector Delgadillo MD Hyperlipidemia active Hector Delgadillo MD HTN essential active Hector Delgadillo MD Palpitations active Hector Delgadillo MD Family History of Hypertension: active ? Mary Delgadillo MD ENCOUNTERS Date Type Provider Location Encounter Diag nosis - In-person encounter Office Visit Hector Delgadillo MD [facility] Family History of Hypertension:PalpitationsHTN essentialHyperlipidemiaChest pain VITAL SIGNS Date Observation Value Provider Body Mass Index (Ratio) 23.86 kg/m2 Mary Delgadillo MD blood pressure, cuff size regular Ke rrkwadwo Mathur blood pressure, diastolic 70 mm[Hg] Ke rri Kevan blood pressure, systolic 156 mm[Hg] Trena Mathur oxygen saturation, oximetry 99 % Mey Mathur respiratory rate E&M 18 /min Mey hale pulse rate 60 /min Mey Banegas lder weight E&M 139 [lb_av] Mey Banegas lder height E&M 64 [in_i] Mey dillarder ALLERGIES No Known Drug Allergies HISTORY OF MEDICATION USE Medication Status Instructions Dates Provider Indications Com ments LIPOFLAVONOID ORAL TABLET active 4 a day Mey Mathur SM ZINC 50 MG ORAL TABLET active once a day Mey Mathur MULTIVITAMINS ORAL CAPSULE active ONE TAB. DAILY Mey Mathur CALCIUM CAPSULE active once a day Mey Mathur AMBIEN 10 MG ORAL TABLET active at bedtime Mey Mathur DEXILANT 60 MG ORAL CAPSULE DELAYED RELEASE active one at bedtime Mey Mathur GABAPENTIN 400 MG ORAL CAPSULE active 2 a day Mey Mathur METOPROLOL SUCCINATE ER 50 MG ORAL TABLET EXTENDED RELEASE 24 HOUR active one tab. daily Mey Mathur FERROUS SULFATE TABLET active take one pill a day Mey Mathur VITAMIN D TABLET active once a day Mey Mathur [employer] STOOL SOFTENER CAPSULE active 2 a day Mey Mathur SYNTHROID 88 MCG ORAL TABLET active ONE TAB. DAILY Mey Mathur EVOXAC 30 MG ORAL CAPSULE active 4 pills a day Mey Mtahur PLAVIX 75 MG ORAL TABLET active ONE TAB. DAILY Mey Mathur ASPIRIN ADULT LOW DOSE 81 MG ORAL TABLET DELAYED RELEASE active One Tab By Mouth Daily Mey Mathur ACID BLACK TOP MACHINE OPERATOR 150 MG ORAL TABLET active once a day Mey Mathur SOCIAL HISTORY Date Observation Value Provider number of grandchildren Hector Delgadillo MD U kika Delgadillo MD social history E&M S moking History: P sergei has never smoked. Hector Delgadillo MD social history reviewed E&M revi ewed - no changes required Hector Delgadillo MD smoking status Never smoker Mey prescott FAMILY HISTORY Family Member Condition Father Negative FH of Coron melquiades Artery Disease Mother Family History of Hy pertension: INSURANCE PROVIDERS Payer name Policy type / Coverage type [place] red democrat ID [employer] MEDICARE SECONDARY Commercial insurance com girish [id number] [place] Medicare [id number] ADVANCE DIRECTIVES Name Date DISCUSSED - NO DECISION MADE TREATMENT PLAN Date Name Performer Cardiology Jerson Killian nt : B P today: 156/70 Hector Delgadillo MD Date Name Stress Regadenoson Complete Echo Holter Monitor 24 Hr HISTORY OF PROCEDURES Procedure Date Procedure Name Provider Procedure Notes S tatus Holter, 24 or 48 Hector Delgadillo MD com pleted
== END 2024-07-20 15:04 | disposition home or self-care (01) ==
PROVIDERS: PCP Internal Medicine; Visit Provider Internal Medicine
DX: Z78.0 Asymptomatic menopausal state (principal); M85.88 Other specified disorders of bone density and structure, other site; M81.0 Age-related osteoporosis without current pathological fracture
CPT/HCPCS: 77080

== ENCOUNTER 2024-09-11 13:18 | Outpatient (CLI) | payer MEDICARE, OTHER, SELFPAY ==
--- NOTE | ~2024-09-11 | MM_ITS ---
EXAMINATION: MM screening adams BI w kacy HISTORY: Screening TECHNIQUE: Craniocaudal and mediolateral oblique 3-D tomosynthesis images were obtained and synthetic 2-D images were generated. CAD analysis was submitted and interpreted. COMPARISON: Comparison to multiple prior studies sequentially, with oldest reviewed study dated 11/2017. BREAST PARENCHYMAL COMPOSITION: Not dense: There are scattered areas of fibroglandular density. FINDINGS: There is no evidence of suspicious mass, calcification, or architectural distortion to sugg est malignancy in either breast. There has been no suspicious interval change. IMPRESSION: 1. No mammographic evidence of malignancy. 2. Recommend routine screening mammography in one year. BI-RADS Category 1: Negative Reviewed, dictated and finalized at location B.
--- OUTSIDE RECORDS SUMMARY | 2024-09-11 14:32 | XMS_ITS | Continuity of Care Document ---
Author Organization [facility] Address [address] [place] [address] [address] [place] [address] Phone Care Team Providers Care Primary Counselor Name Role Phone Antonio Oenill Unavailable Unavailable Procedures Procedure Date Office/outpatient Visit, Est Office/outpatient Visit, Est Eye Exam & Treatment Refraction Progressive Lens, Plastic Frames Deluxe Tint Photochromatic, Plastic Tax - Medical Eye Exam & Treatment Refraction Advance Directives Directive Yes / No Effective Date File Name No Information Encounters Encounter Description Practice Location Reason(s) For Visit Diagnoses Date Provider Providers Copied on Encounter Office/outpat ient Visit, [facility], [address] [place] [address] [address], [place], [place], [id number], tel:[phone] [facility] No Information [address]. [address] [facility] [address], [address], [place], [address], [place]. tel:[phone] Office/outpat ient Visit, [facility], [address] [place] [address] [address], [place], [place], [id number], [place] tel:[phone] [facility] No Information 0 6-200 [address] Al[address]. [address] [facility] [address], [address], [place], [address], [place]. tel:[phone] [facility], [address] [place], [place] [address], [place], [place], [id number], [place] tel:[phone] [facility] No Information 8 N[address] Alvarez. [address] [place] [address] , [address], [place], [address], . tel:[phone] [facility], [address], [place], [place], [id number], [place] tel:[phone] [facility] No Information 6 [employer] . [address], [address], [place], [place], [id number], [place]. tel:[phone] Referring Provider: Antonio May, [address] [place] [address] [address], [place], [place], [facility]. tel:[phone] sulting Provider: Juan Daniel Salinas, [address] [place] [address], [place], [place], [facility]. tel:[phone] [facility], [address], [place], [place], [id number], [place] tel:[phone] [facility] No Information 6 N[address] Al[address]. [address] [place] [address] , [address], [place], [address], [place]. tel:[phone] Family History Family Member Type Diagnosis Age At Onset No Information Payers Payer name Insurance type Covered libertarian ID Alayna willoughby(s) [facility] Commercial BL [id number] Social History Type Description Quantity Date Captured Comments Sex Female Smoking Status No Information Chief Complaint And Reason For Visit No Information Reason For Referral Reason For Referral No Information History Of Present Illness Encounter Date Complaint History Of Prese nt Illness No Information Functional Status Date Functional Assessmen t No Information Instructions Date Instruction Additional Infor mation No Information Assessments Type Assessment Date No Information Patient Care Teams Name Effective Dates (start - stop) Status Members No Information
--- OUTSIDE RECORDS SUMMARY | 2024-09-11 14:32 | XMS_ITS | CONTINUITY OF CARE DOCUMENT ---
Author Name sophie barrios Address Unknown Organization [facility] Address [address] [place] [address] Phone [phone] Care Team Providers Care Python Programmer Name Role Phone Hector Delgadillo MD Unavailable XENIA MENENDEZ MD Unavailable XENIA MENENDEZ MD Unavailable [phone] PROBLEMS Condition Status Date Provider Notes Family History of Hypertension: active ? Mary Delgadillo MD Palpitations active Hector Delgadillo MD HTN essential active Hector Delgadillo MD Hyperlipidemia active Hector Delgadillo MD Chest pain active Hector Delgadillo MD ENCOUNTERS Date Type Provider Location Encounter Diag nosis - In-person encounter Office Visit Hector Delgadillo MD [place] [facility] Family History of Hypertension:PalpitationsHTN essentialHyperlipidemiaChest pain [...] CAPSULE active 4 pills a day Mey Mathur PLAVIX 75 MG ORAL TABLET active ONE TAB. DAILY Mey Mathur ASPIRIN ADULT LOW DOSE 81 MG ORAL TABLET DELAYED RELEASE active One Tab By Mouth Daily Mey Mathur ACID DIGITAL PHOTO PRINTER 150 MG ORAL TABLET active once a [...] Payer name Policy type / Coverage type [place] red green party ID [employer] MEDICARE SECONDARY Commercial insurance com girish [id number] [place] [id number] ADVANCE DIRECTIVES Name Date DISCUSSED - NO [...]
--- OUTSIDE RECORDS SUMMARY | 2024-09-11 14:32 | XMS_ITS | Clinical Summary ---
Author Organization [employer] [facility] Address [address] [place] [address] Phone Care Team Providers Care [employer] Name Role Phone Aby Montalvo MD Primary Care Provider [phone] Medications atorvastatin (LIPITOR) 10 MG tablet Take 1 tablet (10 mg total) by mouth every night 90 tablet 1 12/23/2021 Active Encounters Date Type Department Care Team Description 07/13/2024 Documentation Only [facility], [address] [id number] Adonay Franco DO from Last 3 Months Social History Tobacco Use Types Packs/Day Years Used Date Smoking Tobacco: Never Assessed Comments Unknown Sex and Gender Information Value Date Recorded Sex Assigned at Not on file Legal Sex Female 2:55 PM EDT Gender Identity Not on file Sexual Orientation Not on file Last Filed Vital Signs Vital Sign Reading Time Taken Comments Blood Pressure 128/70 12/23/2021 2:06 PM CDT Pulse 60 12/23/2021 2:06 PM CDT Temperature 36.1 C (97 F) 12/23/2021 2:06 PM CDT Respiratory Rate 18 12/23/2021 2:06 PM CDT Oxygen Saturation 99% 12/23/2021 2:06 PM CDT Inhaled Oxygen Concentration - - Weight 58.1 kg (128 lb) 12/23/2021 2:06 PM CDT Height 160 cm (5' 3) 12/23/2021 2:06 PM CDT Body Mass Index 22.67 12/23/2021 2:06 PM CDT Plan of Treatment Health Maintenance Due Date Last Done Comments Pneumococcal Vaccine: 50+ Years Completed 12/08/2018, 01/06/2018, 12/07/2017, Additional history exists Influenza Vaccine Completed 01/05/2024, , 01/30/2019, Additional history exists Hepatitis B Vaccine Aged Out No longe r eligible based on patient's age to complete this topic Insurance Medicare [facility] [employer] [facility] Adv PPO ([id number]) Care Teams [employer] Relationship Specialty Start Date End Date Aby Montalvo MD [address] [facility], [address] [place] [address] PCP - General Internal Medicine 08/05/21
--- OUTSIDE RECORDS SUMMARY | 2024-09-11 14:32 | XMS_ITS | Data Portability ---
Author Organization [place] [facility], Main Office Address [address] [place] [address] Care Team Providers Care Yeast Pumper Name Role Phone LUISARTURABY Marquez Primary Care Provider [facility] D[facility] Soft Tile Setter [phone] Assessment Encounter Date Assessment Date Assessment LastModified [...] droxy , total , serum 2024 025 [email or web address] [facility], [address] , [place], [address], 07/12/2024 14:29:56 CBC w/ auto diff 2024 025 [employer] [facility], [address], [place], [address], 07/12/2024 14:29:57 lipid panel , serum 2024 025 [facility], [address], [place], [address], 07/12/2024 14:29:55 CMP, serum or plasm a 2024 025 [facility], [address], [place], [address], 07/12/2024 14:29:54 TSH + free T4, serum 2024 025 ABERDEEN [facility], [address], [place], [address], 07/12/2024 14:29:55 rapid flu (A+B) [address] [facility], [address] [place], [address], 03/16/2024 14:41:26 SARS CoV 2 RNA (COVI D-19) , QL, clean up supervisor-P CR, respi rator y speci men [address] [facility], [address] [place], [address], 03/16/2024 14:41:26 rapid strep group A, throa t [address] [facility], [address] [place], [address], 03/16/2024 14:41:27 CBC w/ auto diff 2023 024 [place] [address] [facility], [address], [place], [address], 07/03/2024 17:46:05 lipid panel , serum 2023 024 [place] [address] [facility], [address], [place], [address], 07/03/2024 17:46:05 CMP, serum or plasm a 2023 024 [place] [address] [facility], [address], [place], [address], 07/03/2024 17:46:06 TSH + free T4, serum [address] [facility], [address], [place], [address], 07/03/2024 17:46:06 vitam in D, 25-hy droxy , total , serum [address] [facility], [address], [place], [address], 07/03/2024 17:46:06 vitam in D, 25-hy droxy , total , serum 2023 024 [facility], [address], [place], [address], 12/30/2023 13:16:12 CBC w/ auto diff 2023 024 [facility], [address], [place], [address], 12/30/2023 13:16:12 lipid panel , serum 2023 024 [facility], [address], [place], [address], 12/30/2023 13:16:11 CMP, serum or plasm a 2023 024 [facility], [address], [place], [address], 12/30/2023 13:16:11 TSH + free T4, serum 2023 024 [facility], [address], [place], [address], 12/30/2023 13:16:11 hepat itis panel (A+B+ C), acute , serum 2023 024 [email or web address], [address], [place], [address], 11/29/2023 09:05:03 gamma -glut amyl trans feras e (ggt) , serum 2023 024 [place] [address] [facility], [address], [place], [address], 11/29/2023 09:05:03 vitam in D, 25-hy droxy , total , serum 2023 024 [place] [address] [facility], [address], [place], [address], 11/22/2023 14:02:55 CBC w/ auto diff 2023 024 [place] [address] [facility], [address] [facility], [place], [address], 05/22/2024 12:21:13 lipid panel , serum 2023 024 [email or web address], [address], [place], [address], 11/22/2023 14:02:54 CMP, serum or plasm a 2023 024 [email or web address], [address], [place], [address], 11/22/2023 14:02:54 TSH + free T4, serum 2023 024 [email or web address], [address], [place], [address], 11/22/2023 14:02:55 Referral pain manag ement refer frederick - Pleas e call patie nt to feroz arreola. Thank you. 2024 025 [facility], [address], [place] [address] [address], [place], [address], 07/13/2024 12:15:[address] refer ral - Pleas e call patie nt to sched ule an appoi ntmen t. Thank you. 2024 025 R[place], [address], [address], [place], [address], 07/13/2024 11:40:35 eye care refer ral - Pleas e call patie nt to sched ule an appoi ntmen t. Thank you. 2024 025 [facility], [address] [place] [address], [address], 07/13/2024 12:00:38 pain manag ement refer ral 2023 024 [email or web address] [facility], 2022 Clarice Abreu, [address], [address], 07/31/2024 08:12:[address] refer ral 2023 024 [email or web address] [place], [address], [address], [place], [address], 05/08/2024 08:37:26 eye care refer ral [email or web address] [facility], [address] [place] [address], [address], 05/08/2024 08:37:[address] refer ral 2023 024 [place], [address], [place], [address], 04/03/2024 16:25:33 eye care refer ral [email or web address] [facility], [address] [place] [address], [address], 04/03/2024 16:25:[address] refer [facility] 2023 024 [email or web address] [place], [address], [address], [place], [address], 12/20/2023 09:12:12 rheum atolo gist refer [facility] 2023 024 [email or web address] Mariann Hope MD, [address] [facility], [address], [place], [address], 12/20/2023 09:12:11 eye care [facility] [email or web address] [facility], [address] [place] [address], [address], 05/22/2024 09:11:51 Procedures colon oscop y scree alena (PROC ) - Pleas e call patie nt to sched ule an appoi alejandra t. Thank you. 2024 025 RODRÍGUEZ Bonilla MD, [address], [facility] [address], [place], [address], 07/13/2024 12:15:29 colon oscop y scree alena (PROC ) 2023 024 [email or web address] Bogdan Bonilla MD, [address], [facility] [address], [place], [address], 04/06/2024 09:35:03 colon oscop y scree alena (PROC ) 2023 024 [email or web address] Bogdan Bonilla MD, [address], [facility] [address], [place], [address], 04/03/2024 16:26:19 Surgeries None recor ded. Imaging MAMMO , scree alena, digit al, bilat eral - Pleas e call patie nt to sched ule. 2024 025 [facility] ([facility]), [address] [place], [address], 07/12/2024 14:51:27 bone densi ty - Pleas e call patie nt to sched ule. 2024 025 [facility] ([facility] Sched[facility]), [address] [place], [address], 07/31/2024 10:23:43 DEXA, axial skele ton [email or web address], [address], [address], 07/20/2024 11:21:41 MAMMO , scree alena, digit al, bilat eral 2023 024 SHEEBA Not available 09/11/2023 11:15:36 US, liver 2023 024 [facility], [facility] [address], [address], 09/28/2023 12:16:06 Medication Orders zolpi dem 10 mg table t 2023 024 SHEE[facility] [id number] [facility], [address] [place] [address], [address], 03/09/2024 16:41:31 amoxi cilli n 875 mg-po tassi um clavu lanat e 125 mg table t 2023 024 [email or web address] [facility] [address] [facility], [address] [place] [address], [address], 07/12/2024 14:08:22 benzo natat e 100 mg capsu le 2023 024 [email or web address] [facility] [address], [address], 07/12/2024 14:08:27 Lunes ta 1 mg table t 2023 024 [email or web address] 2 [facility], [facility], FARHANA [place], [address], 03/09/2024 16:40:36 Patient TargetsNo targets recorded. Patient Instructions Encounter Date Encounter Id Patient Instructions Last Modified By Organization Details Last Modified Time 09/29/2023 [id number] Personalized a lt Plan and Screening Recommendations Advance Directives - Do you have one? Advance Directives - Do we have your advance directive on file in your health record? Primary Prevention/Interven tion (prevents or decreases the chance of common diseases from occurring) Smoking Risk: Alcohol Misuse Screening: Weight: Physical activity: Nutrition: Fall Risk (screened today): Vaccines Pneumococcal: # Ordered Recommend ed today Recommended today, but you have declined No further needed Your next one in: Influenza: # Ordered Recommend ed today Recommended today, but you have declined Your next one in the fall of this year Chronic Disease Risks Stroke: Active diagnosis, Continue current treatment plan Heart Attack: Active diagnosis, Continue current treatment plan Clogging of the Arteries: Active diagnosis, Continue current treatment plan Diabetes: Active diagnosis, Continue current treatment plan Secondary Prevention/Interven tion (detects treatable diseases before they may cause symptoms, disability, or ) Breast Cancer Screening with mammogram: Cervical/Uterine/Ov janae Cancer Screening: Osteoporosis Screening: Date Screening Last Performed: Colon Cancer Screening: Date Screening Last Performed: Eye Disease Screening: Your next exam in:# Ordered Recomm ended today Recommended today, but you have declined No Eye exam necessary Dementia Risk: Depression Screening: Active diagnosis, Continue current treatment plan Not available 09/28/2023 10:17:43 01/05/2024 [id number] dementia rating scale-2* [email or web address] Not available 01/05/2024 15:15:16 alcohol misuse* [email or web address] Not available 01/05/2024 15:15:28 depression screening* [email or web address] Not available 01/05/2024 15:15:46 Timed Up and Go test (TUG)* [email or web address] Not available 01/05/2024 15:15:57 multi-dimensiona l health assessment questionnaire* [email or web address] Not available 01/05/2024 15:14:43 advance directiv es: care instructions [email or web address] Not available 01/06/2024 09:43:14 advance care planning: care instructions [email or web address] 2 Not available 01/06/2024 09:43:13 [place] Advance Directives [email or web address] 2 Not available 01/06/2024 09:43:13 Personalized Hea lt Plan and Screening Recommendations Advance Directives - [...] of activity that causes mild breathlessness/day Nutrition: Average Refer to attached handout Heart-Healthy Diet: After Your Visit Fall Risk (screened today): Low Refer to attached handout Preventing Falls: After your Visit Vaccines Pneumococcal: No further needed Influenza: Recommended today Chronic Disease Risks Stroke: Intermediate Risk I have no recommendations Act jennifer diagnosis, Continue current treatment plan My recommendation would be to make an appointment for further testing Follow Heart Healthy Diet. Heart Attack: Intermediate Risk I have no recommendations Act jennifer diagnosis, Continue current treatment plan My recommendation would be to make an appointment for further testing Follow Heart Healthy Diet. Clogging of the Arteries: Intermediate Risk I have no recommendations Act jennifer diagnosis, Continue current treatment plan My recommendation would be to make an appointment for further testing Follow Heart Healthy Diet. Diabetes: Low Risk I have no recommendations Secondary Prevention/Interven tion (detects treatable diseases before they may cause symptoms, disability, or ) Breast Cancer Screening with mammogram: Your next mammogram: Ordered Recommended today Recommended today, but you have declined No screening necessary Your next mammogram: 1 year Cervical/Uterine/Ov janae Cancer Screening: No screening necessary Osteoporosis Screening: Ordered Date Screening Last Performed: 2021 Colon Cancer Screening: No screening necessary Eye Disease Screening: Recommended today Dementia Risk: Low I have no recommendations Depression Screening: Negative Not available 01/05/2024 15:18:53 Reason for Referral Exchange Consultant Referral for Rheumatoid arthritis Referring Physician: Aby Montalvo, Internal Medicine, Encounter Date: 05/26/2023 Eye Care Referral for Rheuma toid arthritis Referring Physician: Aby Montalvo Internal Medicine, Encounter Date: 05/26/2023 Assistant Floor Covering Printer Referral for Ch ronic kidney disease Referring Physician: Aby Montalvo Internal Medicine, Encounter Date: 05/26/2023 Eye Care Referral for Rheuma toid arthritis Referring Physician: Aby Montalvo Internal Medicine, Encounter Date: 09/29/2023 Assistant Floor Covering Printer Referral for Ch ronic kidney disease Referring Physician: Aby Montalvo Internal Medicine, Encounter Date: 09/29/2023 Eye Care Referral for Rheuma toid arthritis Referring Physician: Kalyani Garrison Medicine, Encounter Date: 01/05/2024 Assistant Floor Covering Printer Referral for Ch ronic kidney disease Referring Physician: Aby Montalvo Internal Medicine, Encounter Date: 01/05/2024 Pain Management Referral for Neck pain Referring Physician: Kalyani Garrison Medicine, Encounter Date: 01/05/2024 Eye Care Referral for Rheuma toid arthritis Please call patient to schedule an appointment. Thank you. Referring Physician: Kalyani Garrison Medicine, Encounter Date: 07/12/2024 Assistant Floor Covering Printer Referral for Ch ronic kidney disease Please call patient to schedule an appointment. Thank you. Referring Physician: Aby Montalvo Internal Medicine, Encounter Date: 07/12/2024 Pain Management Referral for Neck pain Please call patient to schedule an appointment. Thank you. Referring Physician: Aby Montalvo Internal Medicine, Encounter Date: 07/12/2024 Results Created Date Observation Date Name Description Value Unit Range Abnormal Flag Note LastModifiedBy Organization Detail LastModifiedTime 09/11/19 24 09/10/2023 MAMMO , scree alena, digit al, bilat eral No observ ation record ed. [facility] [address], [place], [address], 01/13/2024 16:34:36 09/28/19 24 09/28/2023 US, liver No observ ation record ed. [email or web address] [facility] [address], [place], [address], 01/13/2024 16:34:37 07/29/19 25 07/20/2024 bone densi ty No observ ation record ed. [email or web address] [facility] ([facility]) [address] [place], [address], 07/31/2024 10:23:43 Result Notes None recorded. Problems Name Problem SNOMED Code Status Onset Date Resolution Date Notes Provider Name and Address Organization Details Recorded Time Rheumatoid arthritis 55861289 Active 2022 Not Available [facility] 3 10:46:56 Diarrhea 93274321 Active 2022 Janny Zhou, ABBY [place], [place] [facility] [place] [employer] 5 12:28:18 Chronic kidney disease 233945049 Active 2022 Not Available [facility] 3 10:46:56 Dizziness 407171513 Active 2022 Not Available [facility] 3 10:46:56 Gastroesophag eal reflux disease without esophagitis 756179874 Active 2022 Not Available [facility] 3 10:46:56 Persistent insomnia 244895807 Active 2022 Not Available [facility] 3 10:46:56 Anemia 566644091 Active 2022 Not Available [facility] 3 10:46:56 Osteopenia 931904955 Active 2022 Not Available [facility] 3 10:46:56 Eruption 760132095 Active 2022 Not Available [facility] 3 10:46:56 Anxiety 17212598 Active 2022 Not Available [facility] 3 10:46:56 Vitamin D deficiency 47951973 Active 2023 Aby marquez MD [address], [place] [address], [place], [address] , [place] [facility] 4 11:38:47 Thrombocytope lewis disorder 959964424 Active 2023 Aby marquez MD [address], [place] [address], [place], [address] , [facility] 4 14:48:04 Increased liver function 73581782 Active 2023 Aby marquez MD [address], [place] [address], [place], [address] , [facility] 4 14:48:29 Keloid scar 57816228 Active 2023 Geraldine Mason MA null, [place] [facility] 4 12:53:49 Urinary incontinence 481209677 Active 2023 Aby marquez MD [address], [address], [address] , [facility] 4 14:48:21 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 Aby marquez MD [address], [address], [address] , [facility] 4 15:39:28 COVID-19 662872255 Active 2023 ABBY Ordonez null, [place] [facility] [place] [facility] 4 11:02:28 Impacted cerumen 20617749 Active 2023 Akil Rodriguez CMA null, [place] [facility] 4 10:28:31 Impacted cerumen 09563807 Active 2023 Akil Rodriguez CMA null, [place] [facility] 4 10:28:56 Acute sinusitis 12893416 Active 2021 Not Available [facility] 3 10:46:56 Gastroesophag eal reflux disease 966974220 Active Not Available [facility] 3 10:46:56 Gastroparesis syndrome 102113580 Active Not Available [facility] 3 10:46:56 Chest pain 14049656 Active Not Available [facility] 3 10:46:56 Ingrowing toenail 457962779 Active Not Available [facility] 3 10:46:56 Hypothyroidis m 69948792 Active Not Available [facility] 3 10:46:56 Dysuria 82755072 Active Not Available [facility] 3 10:46:56 Cough 86942241 Active 2021 Not Available [facility] 3 10:46:56 Upper respiratory infection 27462629 Active 2021 Not Available [facility] 3 10:46:56 Systemic lupus erythematosus 37755224 Active Not Available [facility] 3 10:46:56 Hyperlipidemi a 77886457 Active Not Available [facility] 3 10:46:56 Essential hypertension 45069739 Active Not Available [facility] 3 10:46:56 Neck pain 32547579 Active 2021 Not Available [facility] 3 10:46:56 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 Procedures Surgical History Date Name Laterality Status Provider Name and Address Organization Details Recorded Time 01/05/20 24 Medicare Wellness CPT Code, subsequent completed [facility] 01/04/2024 09:32:05 01/05/20 24 Advanced Care Planning completed [facility] 01/05/2024 15:13:46 09/29/19 24 Medicare Wellness CPT Code, subsequent completed [facility] [place] [facility] 09/28/2023 10:17:44 09/10/19 24 Date of Last Mammogram completed Stephanie Spear MA [place] [facility] 09/29/2023 14:25:23 Hysterectomy completed Not Available [facility] 06/03/2022 04:42:01 Gallbladder Surgery completed Not Available [facility] 06/03/2022 04:42:01 Cataract Surgery completed Not Available [facility] 06/03/2022 04:42:01 fundoplication completed Not Available [facility] 06/03/2022 04:42:01 Imaging Results None recorded. Procedure Notes None recorded. Medical Equipment None [...] 1 TABLET BY MOUTH EVERYDAY AT BEDTIME active Not Available Not Available No t Available clarithro mycin 500 mg tablet active [...] Not Available cevimelin e 30 mg capsule TAKE 1 CAPSULE BY MOUTH THREE TIMES A DAY active Not Available Not Available No [...] e 50 mcg/actua tion nasal spray,kat pension [place] 1 spray every day by intranas al [...] injection syringe TO BE ADMINIST ERED BY [employer] FOR IMMUNIZA TION 01/11 completed Not Available [...] mg-100 mg tablets in a dose pack (Moderate Renal Dose) TAKE 1 TABLET OF NIRMATRE LVIR [...] Updated DateTime 4 162.56 cm 21.1 kg/m2 51557.8 6 g 97.7 [degF] 78 /min 122 mm[Hg] 64 mm[Hg] Janny Zhou [place] [facility] [employer] [facility] 4 14:30:51 Date Recorded Body height Body mass index (BMI) Body weight Body temperature Heart rate Systolic blood pressure Diastolic blood pressure Provider Name and Address Organization Details Last Updated DateTime 5 162.56 cm 22 kg/m2 60256.8 2 g 97.6 [degF] 66 /min 122 mm[Hg] 70 mm[Hg] Janny Zhou [place] [facility] [employer] [facility] 5 14:17:49 Date Recorded Body height Body mass index (BMI) Body weight Body temperature Heart rate Oxygen saturation Oxygen saturation in Arterial blood by Pulse oximetry Systolic blood pressure Diastolic blood pressure Provider Name and Address Organization Details Last Updated DateTime 4 162.56 cm 22.7 kg/m2 81775.1 9 g 98.1 [degF] 68 /min 98 % 98 % 130 mm[Hg] 72 mm[Hg] Stephanie Spear MA [employer] [facility] [employer] [facility] 4 14:21:45 Date Recorded Body height Body mass index (BMI) Body weight Body temperature Heart rate Systolic blood pressure Diastolic blood pressure Provider Name and Address Organization Details Last Updated DateTime 4 162.56 cm 21.3 kg/m2 86455.4 5 g 97.7 [degF] 72 /min 126 mm[Hg] 78 mm[Hg] ABBY Ordonez [facility] [employer] [facility] 4 14:14:17 Date Recorded Body height Body mass index (BMI) Body weight Body temperature Heart rate Systolic blood pressure Diastolic blood pressure Provider Name and Address Organization Details Last Updated DateTime 4 162.56 cm 21.8 kg/m2 02786.2 3 g 97.7 [degF] 68 /min 122 mm[Hg] 70 mm[Hg] ABBY Ordonez [place] [facility] [place] [facility] 4 15:58:31 Social History Question Answer Notes LastModified by Organizat ion Details LastModified Time Tobacco Smoking Status Never Smoker Not Available [facility] 06/03/2022 04:41:45 Do You Have An Advance Directive? No [id number] Information not available 06/03/2022 Are You Blind Or Do You Have Difficulty Seeing? No MIGRATION.66351 [id number] Information not available 06/03/2022 Is Blood Transfusion Acceptable In An Emergency? Yes [email or web address] Information not available 01/05/2024 What Is Your Level Of Caffeine Consumption? Heavy MIGRATION.[id number] Information not available 06/03/2022 How Much Tobacco Do You Chew? None MIGRATION.[id number] Information not available 06/03/2022 In The 14 Days Before Symptom Onset, Have You Had Close Contact With A Laboratory-confir med COVID-19 While That Case Was Ill? No [id number] [id number] Information not available 06/03/2022 In The 14 Days Before Symptom Onset, Have You Had Close Contact With A Person Who Is Under Investigation For COVID-19 While That Person Was Ill? No MIGRATION.43626 [id number] Information not available 06/03/2022 Are You Deaf Or Do You Have Serious Difficulty Hearing? No MIGRATION.49121 [id number] Information not available 06/03/2022 What Type Of Diet Are You Following? REGULAR MIGRATION.20845 [id number] Information not available 06/03/2022 Which Illicit Or Recreational Drugs Have You Used? None MIGRATION.05864 [id number] Information not available 06/03/2022 What Is The Highest Grade Or Level Of School You Have Completed Or The Highest Degree You Have Received? [id number] MIGRATION.68093 32030 Information not available 06/03/2022 How Many Days Of Moderate To Strenuous Exercise, Like A Brisk Walk, Did You Do In The Last 7 Days? 2 [email or web address] Information not available 01/05/2024 On Those Days That You Engage In Moderate To Strenuous Exercise, How Many Minutes, On Average, Do You Exercise? 20 Information not available 01/05/2024 Have There Been Any Changes To Your Family Or Social Situation? No MIGRATION.57142 [id number] Information not available 06/03/2022 What Is The Fluoride Status Of Your Home? Unknown MIGRATION.24638 61119 Information not available 06/03/2022 Are There Any Guns Present In Your Home? No MIGRATION.47686 62239 Information not available 06/03/2022 Do You Use Insect Repellent Routinely? Yes MIGRATION.85724 94410 Information not available 06/03/2022 Where Do You Live? [place] MIGRATION.52114 71628 Information not available 06/03/2022 Presence Of Domestic Violence No [email or web address] Information no t available 01/05/2024 Guns Present In The Home? No [email or web address] Information not available 01/05/2024 Are You Able To Care For Yourself? Yes [email or web address] Information not available 01/05/2024 Are You Blind Or Do Yo Have Difficulty Seeing? No [email or web address] Information not available 01/05/2024 Are You Deaf Or Do You Have Serious Difficulty Hearing? No [email or web address] Information not available 01/05/2024 General Stress Level? Low [email or web address] Information not available 01/05/2024 Live Alone Of With Others? With Others [email or web address] Information not available 01/05/2024 Do You Have A Medical Power Of Rn Gynecology? No MIGRATION.[id number] Information not available 06/03/2022 What Was The Date Of Your Most Recent Tobacco Screening? 07/12/2024 [email or web address] Information not available 07/12/2024 How Many Children Do You Have? 1 [email or web address] Information not available 01/05/2024 Do You Have Any Pets? No MIGRATION.39381 [id number] Information not available 06/03/2022 What Is Your Relationship Status? MIGRATION.73901 94723 Information not available 06/03/2022 Do You Use Your Seat Belt Or Car Seat Routinely? Yes Information not available 01/05/2024 Are You Sexually Active? No [email or web address] Information not available 01/05/2024 Do You Have Smoke And Carbon Monoxide Detectors In Your Home? Yes MIGRATION.02935 [id number] Information not available 06/03/2022 Are You Passively Exposed To Smoke? No MIGRATION.74788 38132 Information not available 06/03/2022 Are There Any Smokers In Your House? No MIGRATION.21396 45607 Information not available 06/03/2022 How Much Tobacco Do You Smoke? No MIGRATION.33417 33267 Information not available 06/03/2022 What Types Of Sporting Activities Do You Participate In? None [email or web address] Information not available 01/05/2024 Do You Use Sunscreen Routinely? No MIGRATION.97710 42059 Information not available 06/03/2022 Has Tobacco Cessation Counseling Been Provided? No N/a MIGRATION.85548 27051 Information not available 06/03/2022 How Many Years Have You Smoked Tobacco? 0 MIGRATION.40811 29834 Information not available 06/03/2022 Have You Recently Traveled Abroad? No MIGRATION.28716 42278 Information not available 06/03/2022 Do You Have Difficulty Walking Or Climbing Stairs? No MIGRATION.64037 63874 Information not available 06/03/2022 Do You Have Any Dietary Restrictions? No MIGRATION.21390 38979 Information not available 06/03/2022 Sex: Female Functional Status Question Answer Note LastModified by Vaunte Details LastModified Time Do you use any illicit or recreational drugs? No [email or web address] Information not available 01/05/2024 Do you or have you ever used any other forms of tobacco or nicotine? No MIGRATION.3125309 026 Information not available 06/03/2022 What is your level of alcohol consumption? None MIGRATION.6807807 026 Information not available 06/03/2022 Are you currently employed? No Information not available 01/05/2024 Do you have transportation difficulties? No MIGRATION.8341138 026 Information not available 06/03/2022 Are you able to walk? YESWOREST MIGRATION.6950592 026 Information not available 06/03/2022 Do you have difficulty doing errands alone? No MIGRATION.6049546 026 Information not available 06/03/2022 Are you able to care for yourself? Yes MIGRATION.0069252 026 Information not available 06/03/2022 What is your occupation? retired MIGRATION.2526006 026 Information not available 06/03/2022 Do you have difficulty dressing or bathing? No MIGRATION.4555490 026 Information not available 06/03/2022 What is your exercise level? Occasional MIGRATION.5951077 026 Information not available 06/03/2022 Mental Status Question Answer Note LastModified by Organizat ion Details LastModified Time Do you feel stressed (tense, restless, nervous, or anxious, or unable to sleep at night)? [id number] MIGRATION.[id number] 26 Information not available 06/03/2022 Do you have difficulty concentrating, remembering or making decisions? No MIGRATION.[id number] 26 Information not available 06/03/2022 Family History Relationship Description Onset Age of this Age Resolved Age Notes LastModified by Organization Details LastModified Time Paternal Grandfather Diabetes mellitus MIGRATION.548 [id number] Not available 06/03/2022 04:42:09 Maternal Grandmother Diabetes mellitus MIGRATION.009 [id number] Not available 06/03/2022 04:42:09 Maternal Grandmother Heart disease MIGRATION.598 [id number] Not available 06/03/2022 04:42:09 Father Malignant neoplasm of urinary bladder MIGRATION.401 [id number] Not available 06/03/2022 04:42:09 Medical History Condition Response NERVE DISEASE N BLINDNESS N RHEUMATIC FEVER N KIDNEY STONES N BLADDER PROBLEMS N MRSA N OTHER # 1 N POLIO N LUNG DISEASE/DISORDER N COPD N RADIATION / CHEMOTHERAPY N Other # 2 N BLOOD DISEASES [...] zoster recombinant 3 completed Janny Zhou RMA jack, [facility] 05/24/2024 14:54:27 RSV, recombinant, protein subunit RSVpreF, adjuvant reconstituted, 0.5 mL, PF 3 completed Janny Zhou RMA null, [facility] 05/24/2024 14:54:28 Influenza, high-dose, quadrivalent, PF 3 completed Janny Zhou RMA null, [facility] 05/24/2024 14:54:27 COVID-19, mRNA, LNP-S, PF, riya-sucrose, 30 mcg/0.3 mL 3 completed Janny Zhou RMA null, [facility] 05/24/2024 14:54:28 zoster recombinant 4 completed Janny Zhou RMA null, [facility] 05/24/2024 14:54:27 Influenza, high-dose, quadrivalent, PF 0 completed Janny Zhou RMA null, [facility] 05/24/2024 14:54:15 COVID-19, mRNA, LNP-S, PF, 30 mcg/0.3 mL dose 1 completed Janny Zhou RMA null, [facility] 05/24/2024 14:54:15 COVID-19, mRNA, LNP-S, PF, 30 mcg/0.3 mL dose 1 completed Janny Zhou RMA null, [facility] 05/24/2024 14:54:15 Pneumococcal conjugate PCV 13 8 completed Janny Zhou RMA null, [facility] 05/24/2024 14:54:28 zoster live 5 completed Janny Zhou RMA null, [facility] 05/24/2024 14:54:28 Influenza, high-dose, trivalent, PF 7 completed Janny Zohu RMA null, [facility] 05/24/2024 14:54:28 Influenza, high-dose, trivalent, PF 9 completed Janny Zhou RMA null, [facility] 05/24/2024 14:54:28 DTaP, 5 pertussis antigens 8 completed Janny Zhou RMA null, [facility] 05/24/2024 14:54:28 COVID-19, mRNA, LNP-S, PF, riya-sucrose, 30 mcg/0.3 mL 5 completed Janny Zhou RMA null, [facility] 05/24/2024 14:54:44 Influenza, split virus, trivalent, preservative 3 completed Janny Zhou RMA null, [facility] 05/24/2024 14:54:15 SARS-COV-2 (COVID-19) vaccine, UNSPECIFIED 1 completed Janny Zhou RMA null, [facility] 05/24/2024 14:54:15 SARS-COV-2 (COVID-19) vaccine, UNSPECIFIED 1 completed Janny Zhou RMA null, [facility] 05/24/2024 14:54:15 zoster live 5 completed Janny Zhou RMA null, [facility] 05/24/2024 14:54:15 Influenza, high-dose, trivalent, PF 0 completed Janny Zhou RMA null, [facility] 05/24/2024 14:54:15 pneumococcal polysaccharide PPV23 9 completed Janny Zhou RMA null, [facility] 05/24/2024 14:54:15 Tdap 8 completed Not Available [facility] 06/03/2022 05:03:10 Pneumococcal conjugate PCV 13 8 completed Not Available [facility] 06/03/2022 05:03:10 influenza, unspecified formulation 7 completed Not Available [facility] 06/03/2022 05:03:10 Influenza, high-dose, quadrivalent, PF 2 completed Not Available [facility] 06/03/2022 05:03:10 Influenza, high-dose, quadrivalent, PF 1 completed Not Available [facility] 06/03/2022 05:03:10 Influenza, high-dose, trivalent, PF 8 completed Not Available [facility] 06/03/2022 05:03:10 Influenza, high-dose, trivalent, PF 5 completed Not Available [facility] 06/03/2022 05:03:10 Influenza, high-dose, trivalent, PF 6 completed Not Available [facility] 06/03/2022 05:03:10 Influenza, split virus, quadrivalent, PF 4 completed Not Available [facility] 06/03/2022 05:03:10 Influenza, high-dose, trivalent, PF 4 completed Aby Montalvo MD [address] [facility], [facility] [address], [place], [address], [facility] 01/28/2024 22:11:57 Past Encounters Encounter ID Performer Location Encounter Start Date Encounter Closed Date Diagnosis/Indication Diagnosis SNOMED-CT Code Diagnosis ICD10 Code Diagnosis Note [id number] Aby marquez MD [facility] Internal Med [facility] [address] [place] [address] y , [place] [address] 08/12/2020 00:00:00 08/29/2020 18:53:41 [id number] Aby marquez MD [facility] Internal Med [place] [address] [place] [address] [place] [address] 01/13/2021 00:00:00 01/13/2021 14:49:53 [id number] Aby marquez MD [facility] Internal Med [place] [address] [place] [address] y , [place] [address] 07/14/2021 00:00:00 07/14/2021 14:52:51 [id number] Aby marquez MD [facility] Internal Med [place] [address] [place] [address] [place] [address] 01/12/2022 00:00:00 01/12/2022 14:53:12 [id number] Aby marquez MD [facility] Internal Med [place] [address] [place] [address] [place] [address] 05/27/2022 00:00:00 05/27/2022 14:32:27 [id number] Aby marquez MD [facility] Internal Med [place] [address] [place] [address] [place] [address] 11/25/2022 14:18:13 11/25/2022 14:58:27 Screening - NAD 946717346 Z13.9 C-scope: 11/30/18: Dr Bonilla next in [...] COVID 19 vaccine RTC in 6 monthsDo labsER if worseshe and her verbalized their understand ing of the above Neck pain 43808389 M54.2 XR c-spine 07/14/2021 : DJDDoes well now Rheumatoid arthritis 698 [address] Davis as she has retired, does not want to see any rheum and she wants her meds sent by this office, advised her that this can be done but if any symptoms change she will have to see a rheumatolo gist On cevimeline Does well Hypothyroidism 86552075 E03.9 On synthroid 88mcgs daily Does wellGet labs Essential hypertension 86319096 I10 On ASAOn metoprolol ER 50mg daily Does well Diarrhea 10330351 R19.7 On cholestyra mine Does well on this Chronic ki dney disease 921837146 N18.9 Dr Franco 12/23/2021 Dizziness 486233107 R42 OV 05/18/18:S he declines any referral to the ER or to cardiology today, states that she has to take her mother for an appointmen t, explained concern for 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 and risks Will refer to cardiology and will see Dr Delgadillo tomorrow EKG today 05/18/18: NSR, no obvious STT changes Go to ER if any symptoms worsen, she and her did verbalize her understand ing of the above Seen [facility] Dr Delgadillo 05/19/18, no more apts with Dr Delgadillo Does well, no complaints Gastroesop hageal reflux disease without esophagitis 510322893 K21.9 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, this caused her to get diarrhea S/p EGD done by Dr Bonilla On dexilant Take as needed d/t her CKD Persistent insomnia 1919 87613 G47.09 On zolpidem 10mg daily, wants to stop this, will wean off Get on trazodone, all side effects explained to Gilda tijerina OV 05/27/2022 :On zolpidem 10mg daily Osteopenia 494306638 M85 .80 Does wellNot taking the fosamax Anemia 931187100 D64.9 On iron, repeat the labs History of transient ischemic attack 444301094 Z86.73 On ASAOn plavixDoes wellNo complaints now Vitamin D deficiency 347 68847 E55.9 [id number] Aby marquez MD [facility] [place] [address] [place] [address] [facility] [facility] [place] [address] 05/26/2023 14:03:57 05/26/2023 14:52:37 Vitamin D deficiency 86719266 E55.9 Screening - NAD 52854229 3 Z13.9 C-scope: 11/30/18: Dr Bonilla next [...] understand ing of the above Neck pain 18803328 M54.2 XR c-spine 07/14/2021 : Jeremías well now Rheumatoid arthritis 698 [address]06[address] Davis as [...] well MRI Brain 01/07/2023 Dr Hope Hypothyroidism 29923098 E03.9 On synthroid 88mcgs daily Does wellGet labs Essential hypertension 25629636 I10 On ASAOn metoprolol ER 50mg daily Does well Diarrhea 02304980 R19.7 On cholestyra mine Does well on this Chronic ki dney disease 047197585 N18.9 Dr Franco 12/23/2021 Dizziness 912134213 R42 OV 05/18/18:S he declines any referral to the ER or to cardiology today, states that she has to take her mother for an appointmen t, explained concern for CVS 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09 On zolpidem 10mg daily, wants to stop this, will wean off Get on trazodone, all side effects explained to Gilda well OV 05/27/2022 :On zolpidem 10mg daily OV 05/26/2023 : On zolpidem, does well Osteopenia 672705842 M85 .80 Does wellNot taking the fosamax Anemia 784155062 D64.9 On iron, repeat the labs History of transient ischemic attack 930920838 Z86.73 On ASAOn plavixDoes wellNo complaints now, declines any referrals at this time 05/26/2023 Screening mammography 24 882716 Z12.31 Thrombocyt openic disorder 962378401 D69.6 Repeat the labsMay need to see hematology Increased liver function 31097252 R94.5 [id number] Aby marquez MD [facility] [place] [address] [facility] [place] [address] 09/29/2023 14:13:26 09/29/2023 15:42:29 Vitamin D deficiency 30841506 E55.9 Screening - NAD 90392402 3 Z13.9 C-scope: 11/30/18: Dr Bonilla next [...] understand ing of the above Neck pain 27768167 M54.2 XR c-spine 07/14/2021 : DJDDoes well now Rheumatoid arthritis 698 [address]06[address] Davis as [...] will keep her apt with her Hypothyroidism 54106439 E03.9 On synthroid 88mcgs daily Does wellGet labs Essential hypertension 08171194 I10 On ASAOn metoprolol ER 50mg daily Does well Diarrhea 72236791 R19.7 On cholestyra mineDoes well on this Chronic ki dney disease 645523069 N18.9 Dr Franco 12/23/2021 Dizziness 801644297 R42 OV 05/18/18:S he declines any referral to the ER or to cardiology today, states that she has to take her mother for an appointmen t, explained concern for CVS 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09 Used to be on trazodoneO n zolpidem 10mg daily, does well Osteopenia 181035109 M85 .80 Does wellNot taking the fosamax Anemia 619323158 D64.9 On iron, repeat the labs History of transient ischemic attack 617538126 Z86.73 On ASANot taking plavixDoes wellNo complaints now, declines any referrals at this time 05/26/2023 Screening mammography 24 585517 Z12.31 Thrombocyt openic disorder 985624367 D69.6 Repeat the labsMay need to see hematology , declinesSt ates that she has stopped the ASA and plavix Increased liver function 86201087 R94.5 US liver 09/28/2023 : NegGGT: 09/14/2023 : 32Hepatiti s panel: NegWill decrease the statin to every other day 09/29/2023 Urinary incontinence 165 658859 R32 On solifenaci n 10mg dailyDoes well on this Screening for malignant neoplasm of colon 347707170 Z12.11 Suture granuloma 2524906 8 L92.8 S/p Dr Chavez 08/09/2023 , does well now [id number] Aby marquez MD [facility] [place] [address] [facility] [place] [address] 01/05/2024 13:56:22 01/05/2024 15:09:44 Adult health examination 952660752 Z00.00 Screening for disorder 053087666 Z13.9 Vitamin D deficiency 347 60421 E55.9 Screening - NAD 16462799 3 Z13.9 C-scope: 11/30/18: Dr Bonilla next [...] understand ing of the above Neck pain 38430038 M54.2 XR c-spine 07/14/2021 : DJDDoes well nowRefer to IPC 01/05/2024 Rheumatoid arthritis 698 [address]06[address] Davis as [...] will keep her apt with her Hypothyroidism 91000920 E03.9 On synthroid 88mcgs daily Does wellGet labs Essential hypertension 54144413 I10 On ASAOn metoprolol ER 50mg daily Does well Diarrhea 76814276 R19.7 On cholestyra mineDoes well on this Chronic ki dney disease 996062888 N18.9 Dr Franco 12/23/2021 Dizziness 017787905 R42 OV 05/18/18:S he declines any referral to the ER or to cardiology today, states that she has to take her mother for an appointmen t, explained concern for CVS 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09 Used to be on trazodoneO n zolpidem 10mg dailyWill wean off and d/c zolpidem and get on lunesta 01/05/2024 , all side effects explained Osteopenia 309663069 M85 .80 Does wellNot taking the fosamax Anemia 422606444 D64.9 On iron, repeat the labs History of transient ischemic attack 182666940 Z86.73 On ASANot taking plavixDoes wellNo complaints now, declines any referrals at this time 05/26/2023 Thrombocyt openic disorder 760994609 D69.6 Repeat the labsMay need to see hematology , declinesSt ates that she has stopped the ASA and plavix Increased liver function 22959117 R94.5 US liver 09/28/2023 : NegGGT: 09/14/2023 : 32Hepatiti s panel: NegWidavidson decrease the statin to every other day 09/29/2023 Urinary incontinence 165 394436 R32 On solifenaci n 10mg daily, given by Dr Durbin s well on this Screening for malignant neoplasm of colon 971273842 Z12.11 Suture granuloma 7393217 8 L92.8 S/p Dr Chavez 08/09/2023 , does well now Screening for osteoporosis 350430501 Z13.820 Administra tion of influenza vaccine 97528103 Z23 [id number] Aby marquez MD [facility] [place] [address] [facility] [place] [address] 03/09/2024 15:44:52 03/09/2024 16:34:23 Upper respiratory infection 36395630 J06.9 Get tested for COVID 19, strep and fluGet on tessalon perles as neededGet on augmentin, all side effects explained, rest, hydrate, ER if worseShe and her did verbalize her understand ing of the above Persistent insomnia 1919 18841 G47.09 Used to be on trazodoneO n zolpidem 10mg dailyWill wean off and d/c zolpidem and get on lunesta 01/05/2024 , all side effects explained OV 03/09/2024 : States that the lunesta did not help, wants to revert back to the ambien, sent this today [id number] Aby marquez MD [facility] [place] [address] [facility] [address] [place] [address] 07/12/2024 14:02:03 07/12/2024 14:51:26 Vitamin D deficiency 78534216 E55.9 Screening - NAD 32750847 3 Z13.9 C-scope: 11/30/18: Dr Bonilla next [...] understand ing of the above Neck pain 20598354 M54.2 XR c-spine 07/14/2021 : DJDDoes well nowRefer to IPC 01/05/2024 Rheumatoid arthritis 698 [address] Davis as [...] will keep her apt with her Hypothyroidism 49249347 E03.9 On synthroid 88mcgs daily Does wellGet labs Essential hypertension 10605272 I10 On ASAOn metoprolol ER 50mg daily Does well Diarrhea 15096395 R19.7 On cholestyra mineDoes well on this Chronic ki dney disease 653146690 N18.9 Dr Franco 12/23/2021 Dizziness 821779773 R42 OV 05/18/18:S he declines any referral to the ER or to cardiology today, states that she has to take her mother for an appointmen t, explained concern for CVS 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 symptoms and risks Will refer to cardiology and will see Dr Delgadillo tomorrow EKG today 05/18/18: NSR, no obvious STT changes Go to ER if any symptoms worsen, she and her did verbalize her understand ing of the above Seen [facility] Dr Delgadillo 05/19/18, no more apts with Dr Delgadillo Does well, no complaints Gastroesop hageal reflux disease without esophagitis 354975831 K21.9 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, this caused her to get diarrhea S/p EGD done by Dr Bonilla On dexilant Take as needed d/t her CKD Persistent insomnia 1919 67320 G47.09 Used to be on trazodoneO n zolpidem 10mg dailyWill wean off and d/c zolpidem and get on lunesta 01/05/2024 , all side effects explained OV 07/12/2024 : Now back on zolpidem Osteopenia 217226740 M85 .80 Does wellNot taking the fosamax Anemia 839674677 D64.9 On iron, repeat the labs History of transient ischemic attack 398980512 Z86.73 On ASANot taking plavixDoes wellNo complaints now, declines any referrals at this time 05/26/2023 Thrombocyt openic disorder 702516865 D69.6 Repeat the labsMay need to see hematology , declinesSt ates that she has stopped the ASA and plavix Increased liver function 92220514 R94.5 US liver 09/28/2023 : NegGGT: 09/14/2023 : 32Hepatiti s panel: Arnoldo decrease the statin to every other day 09/29/2023 Urinary incontinence 165 118259 R32 Not on solifenaci n 10mg daily, given by Dr Durbin s well on this Screening for malignant neoplasm of colon 631303795 Z12.11 Suture granuloma 9312969 8 L92.8 S/p Dr Chavez 08/09/2023 , does well now Screening mammography 24 906385 Z12.31 Postmenopausal state 764 26984 Z78.0 Health Concerns Section Related Observation LastModified by Organization Detai ls LastModified Time None Recorded Concern Status LastModified by Organization Details LastModified Time None Recorded Advance Directives Directive N: Payers Encounter Date Sequence Insurance Name Policy Number Policy Reed Covered Member ID Reed Member ID Guarantor Name 05/26/2023 1 [place] Carole Johnston [id number] 1 Carole Johnston 05/26/2023 2 [employer] [place] [employer] (PPO) Carlos Jaime Preston [id number] Carole L Preston 09/29/2023 1 [place] Carole Jaime Preston [id number] 1 Carole Jaime Preston 09/29/2023 2 [employer] [place] [employer] (PPO) Carlos Jaime Preston [id number] Carole Jaime Preston 01/05/2024 1 [place] Carole Jaime Preston [id number] 1 Carole Jaime Preston 01/05/2024 2 [employer] [place] [employer] (PPO) Carlos Jaime Preston [id number] Carole Jaime Preston 03/09/2024 1 [place] Carole Jaime Preston [id number] 1 Carole Jaime Preston 03/09/2024 2 [employer] [place] [employer] (PPO) Carlos Jaime Preston [id number] Carole Jaime Preston 07/12/2024 1 [place] Carole Jaime Preston [id number] 1 Carole L Preston Notes Date Note Type Note Provider Name and Address Organization Details Recorded Time 05/26/2023 text/html Here to blanca Garzon Hx:HTNGERDRAReviewed social family and surgical historySees Dr [facility] in [facility] her [facility] and she did [...] do them nowShe is here with her OliverioMisty 02/15/2020:Tele visit, she is agreeable to do [...] some hydrocortisone cream Aby Montalvo MD [address] [facility], [place], [address], [place] [facility] [employer] ID 05/26/2023 15:03:36 09/29/2023 text/html Here to blanca Garzon Hx:HTNGERDRAReviewed social family and surgical historySees Dr Davis in [facility] for her RA and she did see Eloina COPY TECHNICIAN alsoOV 06/08/17:Here with her husbandShe is doing [...] now does well Aby Montalvo MD [address] [facility], [place], [address], [facility] [employer] 09/29/2023 15:41:16 01/05/2024 text/html Here to blanca Garzon Hx:HTNGERDRAReviewed social family and surgical historySees Dr Davis in [facility] for her RA and she did [...] is here with her Carlos Montalvo MD [address] [place] [address], [facility] [address], [place], [address], [place] [facility] RV ID 01/28/2024 22:14:29 03/09/2024 text/html Here to blanca Garzon Hx:HTNGERDRAReviewed social family and surgical historySees Dr Davis in [facility] for her RA and she did see Eloina villarrealOV 06/08/17:Here with her husbandShe is doing well, [...] this did not help Aby Montalvo MD [address] [place] [address], [facility] [address], [place], [address], [facility] RV ID 03/09/2024 16:42:27 07/12/2024 text/html Here to blanca Garzon Hx:HTNGERDRAReviewed social family and surgical historySees Dr Davis in [facility] for her RA and she did [...] , does well Aby Montalvo MD [address] [facility], [facility] [address], [place], [address], [facility] 07/12/2024 18:31:06 OBGyn Episode No OBEpisode recorded.
== END 2024-09-11 13:19 | disposition home or self-care (01) ==
PROVIDERS: PCP Internal Medicine; Visit Provider Internal Medicine
DX: Z12.31 Encounter for screening mammogram for malignant neoplasm of breast (principal)
CPT/HCPCS: 77063; 77067

== ENCOUNTER 2025-01-15 13:35 | Outpatient (CLI) | payer MEDICARE, OTHER, SELFPAY ==
--- NOTE | ~2025-01-15 | XR_ITS ---
XR_CERV2-3V_CR Indication: Cervicalgia Comparison: None Findings: Grade 1 anterolisthesis of C4 on C5, no fracture. Mild loss of disc height throughout Soft tissues unremarkable Impression: No acute abnormality. Reviewed, dictated and finalized at location P. Impression: No acute abnormality.
--- NOTE | ~2025-01-15 | CT_ITS ---
EXAMINATION: CT brain wo pako, 01/15/2025 13:40 CDT HISTORY: Recurrent headache x 4 years COMPARISON: No comparisons available. Technique: Axial images obtained of the brain without contrast. One or more of the following dose reduction techniques were used: automated exposure control, adjustment of the mA and/or kV according to patient size, use of iterative reconstruction technique. Findings: No acute infarct or parenchymal hemorrhage. No abnormal mass or mass effect. No midline shift. No extra-axial fluid collections. No hydrocephalus. Mastoid air cells unremarkable. Sinuses and orbits unremarkable. No acute fracture. No significant facial or scalp soft tissue swelling evident. No radiopaque foreign body is seen. Impression: 1.No acute intracranial abnormality. Reviewed, dictated and finalized at location P. Impression: 1.No acute intracranial abnormality.
--- NOTE | ~2025-01-15 | XR_ITS ---
XR lumbar spine 2-3V Indication: Lbp Comparison: None Findings: Moderate osteopenia. Dextroconvex scoliosis. Mild loss of vertebral height throughout. No acute fracture or subluxation. Moderate to severe loss of disc height throughout. Soft tissues unremarkable Impression: No acute abnormality. Reviewed, dictated and finalized at location P. Impression: No acute abnormality.
== END 2025-01-15 13:36 | disposition home or self-care (01) ==
LOC: MICIMG 13:37
PROVIDERS: PCP Internal Medicine; Visit Provider Internal Medicine
DX: M43.12 Spondylolisthesis, cervical region (principal); R51.9 Headache, unspecified; M85.88 Other specified disorders of bone density and structure, other site; M41.86 Other forms of scoliosis, lumbar region; M51.360 Other intervertebral disc degeneration, lumbar region with discogenic back pain only
CPT/HCPCS: 70450; 72040; 72100

== ENCOUNTER 2025-03-26 11:01 | Emergency (ER) | payer MEDICARE, OTHER, SELFPAY ==
--- NOTE | ~2025-03-26 | XR_ITS ---
Examination: XR chest 2V Clinical History: cough x 2 weeks Comparison: 04/06/2022 Technique: PA and Lateral Findings: Cardiomediastinal silhouette normal size and configuration. Bibasilar atelectasis and/or scarring. No acute bony abnormality. IMPRESSION: 1. No acute cardiopulmonary findings. Reviewed, dictated and finalized at location R. THESIA ATTENDING
[2025-03-26 11:15] VITALS: BP 166/53; PULSE 66; RESP 16; TEMP 36.7; O2SAT 100
--- NOTE | 2025-03-26 11:53 | ED.URI ---
HPI - URI/Sore Throat General Chief Complaint: Upper Respiratory Infection Stated Complaint: cough Time Seen by Provider: 03/26/25 11:54 Source: patient, RN notes reviewed and old records reviewed Mode of arrival: ambulatory Limitations: no limitations History of Present Illness HPI Narrative: 80-year-old female presents to the [facility] with cough generalized not feeling well for 2 weeks. Patient is not a smoker. Had contacted primary care provider was prescribed Augmentin on March 15. Was also prescribed Tessalon Perles. Has been taking Mucinex and Delsym. Denies fevers, chest pain, shortness of breath Treatments prior to arrival: cold medicine and antibiotics Related Data Home Medications ?Medication ?Instructions ?Recorded ?Confirmed ?Last Taken ?Type aspirin 81 mg tablet,delayed 81 mg PO DAILY 07/28/21 04/06/22 04/06/22 08:00 History release cholestyramine (with sugar) 4 gram 1 ea PO AC 07/28/21 04/06/22 Unknown History oral powder (Questran) clopidogrel 75 mg tablet 75 mg PO DAILY 07/28/21 04/06/22 04/06/22 08:00 History dexlansoprazole 60 mg 60 mg PO DAILY 07/28/21 04/06/22 04/06/22 08:00 History capsule,biphase delayed release docusate sodium 100 mg capsule 100 mg PO DAILY 07/28/21 04/06/22 04/06/22 08:00 History (DOK) famotidine 20 mg tablet 20 mg PO DAILY 07/28/21 04/06/22 04/06/22 08:00 History ferrous gluconate 240 mg (27 mg 240 mg PO DAILY 07/28/21 04/06/22 04/06/22 08:00 History iron) tablet (Ferate) levothyroxine 88 mcg tablet 88 mcg PO DAILY 07/28/21 04/06/22 04/06/22 06:00 History (Synthroid) metoprolol succinate 50 mg 50 mg PO DAILY 07/28/21 04/06/22 04/06/22 08:00 History tablet,extended release 24 hr zolpidem 10 mg tablet (Ambien) 10 mg PO HS insomnia 07/28/21 04/06/22 04/05/22 21:00 History cholecalciferol (vitamin D3) 50 50 mcg PO DAILY 11/09/22 Unknown History mcg (2,000 unit) capsule levothyroxine 88 mcg tablet 88 mcg PO DAILY 11/09/22 Unknown History (Synthroid) metoprolol succinate 50 mg 50 mg PO DAILY 11/09/22 Unknown History tablet,extended release 24 hr mirabegron 50 mg tablet,extended 50 mg PO DAILY 11/09/22 Unknown History release 24 hr (Myrbetriq) zolpidem 10 mg tablet PO 11/09/22 Unknown History Allergies Allergy/AdvReac Type Severity Reaction Status Date / Time No Known Allergies Allergy Verified 03/26/25 11:54 Review of Systems Review of Systems: All systems reviewed & are unremarkable except as noted in HPI and below Constitutional: Constitutional: Reports no additional constitutional complaints ENT: Reports system reviewed and no additional complaints, except as documented Cardiovascular: Cardiovascular: Reports no additional cardiovascular complaints, Denies chest pain and Denies dyspnea Respiratory: Respiratory: Reports as per HPI, Denies chest congestion, Reports cough and Denies dyspnea Musculoskeletal: Musculoskeletal: Reports no additional musculoskeletal complaints Integumentary/Breasts: Skin/Breast: Reports system reviewed and no additional complaints, except as docu PMFSH Past Medical History Medical History Hyperlipidemia Headache Hypothyroidism Hypertension ALEK positive Sjogren's syndrome without extraglandular involvement Degenerative joint disease of cervical and lumbar spine Rheumatoid arthritis with rheumatoid factor of multiple sites without organ or systems involvement Transient ischemic attack Osteoporosis Arthritis Surgical History Surgical History History of Hermelinda fundoplication History of cholecystectomy Family History Family History Father Hypertension Cancer Mother Hypertension Cancer Grandparent Heart disease Grandparent Hypertension Social History Social History Social History: Surrogate medical decision maker: Carlos Johnston, spouse. Code status: Full code. Smoking status: Never smoker Alcohol intake: never Substance use: never Lack of Transportation: No Lack of Food: Never True Current Housing: I Have Housing Concerned About Future Housing: No Difficulty Paying Gas/Electric Bills: No Difficulty Paying for Meds: No Currently Unemployed: No Education: High School Diploma/GED Difficulty w/ Childcare or Family Care: No Living arrangements: with family Additional living arrangements comments: Lives in [place] with spouse. Occupation/Education: retired Gender identity (if verbalized by the patient): Female Spiritual care concerns: No Comments At the time of my signature, I reviewed and agree with the nursing past medical, surgical, social, and family history. There is no relevant family history pertinent to the patient complaint. Exam Const: General: cooperative, healthy appearing, comfortable, no acute distress, well developed, alert and well nourished Nutritional Appearance: well nourished Orientation/consciousness: patient oriented x3 Limitations: no limitations HENMT: Head: normal to inspection Ears: hearing grossly normal bilaterally, external ears normal, TM's normal bilaterally, EAC's normal, mastoids normal and no periauricular adenopathy Mouth: Yes Normal oral and palatal mucosa present, Yes lip normal, Yes tongue normal and Yes moist mucous membranes Throat: posterior oropharynx normal, uvula midline and no uvular edema Eyes: General: appearance normal, both eyes and all related structures Alignment and Position: alignment normal Neck: Neck: normal visual inspection, full ROM, no lymphadenopathy and no meningeal signs Chest: Chest palpation & inspection: normal inspection of the chest Resp: Effort & Inspection: normal respiratory effort and able to speak in complete sentences Auscultation: no crackles, no rales, no rhonchi and wheezes expiratory wheezes and scattered wheezes Cardio: Rate: regular rate Skin: General skin exam: normal color and no rashes or lesions noted Neuro: General: patient oriented x3, gait normal, moves all extremities and no meningeal signs Cognition (Neuro): normal cognition Speech: normal speech Gait exam (Neuro): Normal gait present Extrem: General: normal to inspection, full ROM, capillary refill normal and normal gait Psych: Appearance: grossly normal and well kempt Mental Status: mental status grossly normal Speech and movement: Normal speech and movement present and Clear speech present Affect: normal affect Attitude: cooperative Course Course Level of Care: Express Care Visit Vital Signs Vital signs: Vital Signs Temperature 98.0 F 03/26/25 11:15 Pulse Rate 66 03/26/25 11:15 Respiratory Rate 16 03/26/25 11:15 Blood Pressure 166/53 H 03/26/25 11:15 Pulse Oximetry 100 03/26/25 11:15 Oxygen Delivery Room Air 03/26/25 11:15 Temperature 98.0 F 03/26/25 11:15 Pulse Rate 66 03/26/25 11:15 Respiratory Rate 16 03/26/25 11:15 Blood Pressure 166/53 H 03/26/25 11:15 Pulse Oximetry 100 03/26/25 11:15 Oxygen Delivery Room Air 03/26/25 11:15 reviewed MDM MDM Narrative Medical decision making narrative: patient sitting in exam room. Patient is nontoxic, vitals stable. Patient presents with cough for 2 weeks. Had already taken antibiotics. Chest x-ray is negative, encourage patient to continue [id number] products patient is appropriate for outpatient treatment with close follow-up Discharge instructions reviewed with patient, as well as provided in writing per nursing staff. The instructions also include specific and strict return/GO TO THE ER as well as f/u information. All questions have been answered, and the patient deny any further questions with discharge and discharge plan. Some parts of this dictation were generated by voice recognition software and may contain typographical and/or grammatical inaccuracies. Differential Diagnosis Differential Diagnosis: Differential diagnostic considerations for upper respiratory infection include upper respiratory infection, croup, otitis media, sinusitis, viral infection, bronchitis, influenza, pharyngitis, strep, uvulitis.? Imaging Data Radiologist's impression: ITS Impressions Chest X-Ray 03/26/25 12:35 IMPRESSION: 1. No acute cardiopulmonary findings. Examination: XR chest 2V Clinical History: cough x 2 weeks Comparison: 04/06/2022 Technique: PA and Lateral Findings: Cardiomediastinal silhouette normal size and configuration. Bibasilar atelectasis and/or scarring. No acute bony abnormality. IMPRESSION: 1. No acute cardiopulmonary findings. Discharge Plan Discharge Clinical Impression: Bronchitis Patient Disposition: Home Condition: Stable Instructions: Antibiotic Form, Acute Bronchitis (ED) Additional Instructions: your chest x-ray did not show signs of pneumonia. Support and to continue doing deep breathing, treating your symptoms. It is very important to treat your symptoms. Drink plenty of water, Gatorade, Pedialyte, ice pops or Jell-O. -Alternate Tylenol and Motrin per package directions for fever or pain. You can alternate every 4 hours -Antihistamine medication such as Zyrtec/Claritin/Dena during the day can help improve symptoms. -doing daily nasal irrigations can help relieve pressure your sinuses. Things like a Neti pot -Use Flonase daily to help reduce the inflammation and dry up your sinuses. -You can also use Mucinex. Be sure to drink plenty of water with this medication at least 8 ounces with every dose and it is important to drink 8 to 10 glasses of water per day. Water is a natural decongestant -Eat and drink things that are easy to swallow, like tea or soup, or popsicles. -Oral rinses such as: Salt water gargles and/or may use topical anesthetic (eg. Chloraseptic spray) or lozenges to relieve dryness or throat pain). -Frequent hand washing or hand honey blender is one of the best ways to prevent spread of infection. -Using a vaporizer or humidifier at night will also help thin secretions and help with coughing up phlegm. -Follow up with primary care provider in 7-10 days if condition is not improving - For new or worsening symptoms go directly to the nearest ER Patient Language: Austrian Prescriptions: New prednisone 20 mg tablet See Rx Instructions .Route .COMPLEX Qty: 9 0RF Rx Instructions: Take 40 mg daily for 3 days, 20 mg daily for 3 days albuterol sulfate [Ventolin HFA] 90 mcg/actuation HFA aerosol inhaler 2 puff inhalation QID PRN (Reason: shortness of breath or wheezing) Qty: 6.7 0RF (DME) Aerochamber MV Spacer See Rx Instructions .Route Qty: 1 0RF Rx Instructions: As directed No Action metoprolol succinate 50 mg tablet extended release 24 hr 50 mg PO DAILY levothyroxine [Synthroid] 88 mcg tablet 88 mcg PO DAILY zolpidem 10 mg tablet PO Myrbetriq 50 mg tablet extended release 24 hr 50 mg PO DAILY cholecalciferol (vitamin D3) 50 mcg (2,000 unit) capsule 50 mcg PO DAILY Actemra ACTPen 162 mg/0.9 mL pen injector 162 mg subcut WEEKLY Qty: 3.6 11RF Biotene Oralbalance (glycerin) Gel See Rx Instructions .ROUTE .COMPLEX Qty: 42 3RF Rx Instructions: apply to tongue tid as needed; aspirin 81 mg tablet,delayed release (DR/EC) 81 mg PO DAILY cholestyramine (with sugar) [Questran] 4 gram powder 1 ea PO AC clopidogrel 75 mg tablet 75 mg PO DAILY dexlansoprazole 60 mg capsule,biphase delayed releas 60 mg PO DAILY docusate sodium [DOK] 100 mg capsule 100 mg PO DAILY ferrous gluconate [Ferate] 240 mg (27 mg iron) tablet 240 mg PO DAILY metoprolol succinate 50 mg tablet extended release 24 hr 50 mg PO DAILY levothyroxine [Synthroid] 88 mcg tablet 88 mcg PO DAILY zolpidem [Ambien] 10 mg tablet 10 mg PO HS famotidine 20 mg tablet 20 mg PO DAILY cevimeline 30 mg capsule 1 cap PO TID Qty: 270 1RF prednisone 2.5 mg tablet 2.5 mg PO TID PRN (Reason: headaches/ GCA) Qty: 270 0RF Follow-up/Referrals: Selvin,MD Aby [Primary Care Provider, Unknown] - 1 Week Clinical Impression: Bronchitis Time of Disposition: 12:45
== END 2025-03-26 13:05 | disposition home or self-care (01) ==
PROVIDERS: Emergency Provider Nurse Practitioner; PCP Internal Medicine
DX: J40 Bronchitis, not specified as acute or chronic (principal); I10 Essential (primary) hypertension; E03.9 Hypothyroidism, unspecified; E78.5 Hyperlipidemia, unspecified; M19.90 Unspecified osteoarthritis, unspecified site; M85.80 Other specified disorders of bone density and structure, unspecified site; M05.79 Rheumatoid arthritis with rheumatoid factor of multiple sites without organ or systems involvement; M47.812 Spondylosis without myelopathy or radiculopathy, cervical region; M47.816 Spondylosis without myelopathy or radiculopathy, lumbar region; M35.00 Sjogren syndrome, unspecified; Z86.73 Personal history of transient ischemic attack (TIA), and cerebral infarction without residual deficits
CPT/HCPCS: 71046; 99213; G0463